=== PATIENT | female | born 1985 | race Caucasian/White ===

== ENCOUNTER → 2020-06-14 | Outpatient (CLI) | payer OTHER ==
--- NOTE | 2020-06-16 07:03 | PE ---
EXAMINATION TYPE: PET CT fusion skull to thigh DATE OF EXAM: 06/14/2020 COMPARISON: Outside CT June 04, 2020 HISTORY: Lung cancer initial staging study. Recent abnormal CT. TECHNIQUE: Following the intravenous administration of 11.07 mCi of F-18 FDG, whole body images are performed from the skull base to the midthigh. Images are reviewed on the computer in the coronal, a xial, and sagittal planes. Reconstructed rotating images are created on independent workstation and reviewed on the computer. A noncontrast CT is performed in conjunction with the PET scan. SCAN: Initial Scan FINDINGS: SKULL BASE AND NECK: Diffuse increased uptake symmetrically at level of tongue is present. There is a symmetric increased radiotracer uptake left mandibular level. CHEST, MEDIASTINUM, AND HILAR REGION: Increased uptake surrounding bilateral shoulder muscles left gr eater than right is present. Corresponding to recent outside CT there is persistent focal nodule or nodular consolidation measurin g 1.4 x 1.1 cm superior aspect right lower lobe axial image 87 with hypermetabolic uptake, max SUV is 3.78. There is new nodule or nodular consolidation superior to this axial image 80 measuring 1.4 x 1.1 cm t hat is ametabolic. There is hypermetabolic right 1.5 x 1.4 cm hilar lymph node axial image 88, max SUV is 4.69. No additional areas of abnormal hypermetabolic uptake. ABDOMEN AND PELVIS: Normal excretion from the kidneys and along bilateral ureters into the bladder. N onspecific bowel uptake at level of the cecum. Abnormal hypermetabolic uptake left thigh muscles late rally. No adrenal masses. No suspicious hypermetabolic metabolic uptake. OSSEOUS STRUCTURES: Some hypermetabolic uptake towards end of study mid to distal right femoral level near metallic leg surgical hardware. The visualized right lower extremity is abnormally enlarged monica milton the left leg. Hypermetabolic uptake extends laterally. Patient states history of recent traumatic fracture and surgery May 25. OTHER CT: Liver is enlarged and low density relative to spleen. Cholecystectomy clips are noted. Sple en is upper limits of normal in size. Anteverted uterus. Scattered pelvic phleboliths. IMPRESSION: 1. Multifocal areas of increased uptake diffusely in muscles could reflect multifocal inflammatory pr ocess. Posttraumatic changes and recent surgery accounting for uptake partially imaged in the mid to distal femur. 2. Nonspecific hypermetabolic uptake in the persistent nodule or nodular consolidation with hypermeta bolic slightly enlarged right hilar lymph node. I would still favor post infectious etiology over ralph plasm in patient of this age with new ametabolic nodule or nodular consolidation in the right lung no isabelle on this study versus recent CT. Correlate clinically. At minimum consider short-term follow-up an d sampling if nodule persists.
== END | disposition home or self-care (01) ==
LOC: RADPETMAIN 09:05
PROVIDERS: ATTEND Family Medicine
DX: R91.8 Other nonspecific abnormal finding of lung field (principal); R93.7 Abnormal findings on diagnostic imaging of other parts of musculoskeletal system; R59.0 Localized enlarged lymph nodes; S72.91XA Unspecified fracture of right femur, initial encounter for closed fracture; M89.8X9 Other specified disorders of bone, unspecified site; Z98.890 Other specified postprocedural states
CPT/HCPCS: 78815; A9552

== ENCOUNTER → 2020-06-24 | Outpatient (CLI) | payer OTHER ==
--- NOTE | 2020-06-24 12:47 | XR ---
EXAMINATION TYPE: XR femur RT DATE OF EXAM: 06/24/2020 COMPARISON: 06/14/2020 PET/CT is reviewed. HISTORY: Pain in right femur TECHNIQUE: 2 view right femur FINDINGS: There are prior medullary elder and fixation for a distal diaphyseal oblique fracture. Within the mid to distal diaphysis there is some elevation of the cortex. Some lucencies within the c ortex along the medial aspect of the distal third diaphyseal femur above the level of the fracture. U nderlying osteomyelitis is not excluded. Consider evaluation with three-phase bone scan. Femoral head articulates with the acetabulum. IMPRESSION: 1. 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 Clinical correlation jacqueline mmended. 2. There is some interval healing of a distal diaphyseal femoral fracture
== END | disposition home or self-care (01) ==
LOC: RADXRMAIN 12:03
PROVIDERS: ATTEND Orthopaedic Surgery
DX: S72.301A Unspecified fracture of shaft of right femur, initial encounter for closed fracture (principal)

== ENCOUNTER 2020-07-05 13:42 | Emergency (ER) | payer OTHER ==
[2020-07-05 13:59] VITALS: RESP 18
[2020-07-05] MEDS ORDERED: HYDROmorphone 0.5 MG/0.5 ML SYRINGE IVP STA ×2 (14:23→17:12)
--- NOTE | 2020-07-05 14:27 | ED ---
General Adult HPI - General Chief complaint: Extremity Injury, Lower Stated complaint: Right leg pain Time Seen by Provider: 07/05/20 14:12 Source: patient, EMS Mode of arrival: EMS Limitations: physical limitation - History of Present Illness Initial comments: Dictation was produced using [employer] dictation software. please excuse any grammatical, word or spelling errors. This patient was cared for during a federal and state declared state of em ergency secondary to Covid 19 Chief Complaint: 35-year-old female with past medical history of atraumatic femur fracture presents with severe right lower extremity pain History of Present Illness: 35-year-old female she suffered a atraumatic right femur fracture proximal one month ago. She had surgery at that time. She reports that she had a femur elder placed at [facility] by orthopedic surgery there. Patient states over the last couple days she's been having worsening pain over her tibial area. She states that she has severe pain from her foot all the way to her knee. Patient states she is unable to ambulate. She also complains of pain in her right hip. Patient reports that she was a medical history because she had an atraumatic femur fracture. They thought perhaps that the fracture was secondary to malignant bone disease. States that her pain got so severe that she called EMS for her to be brought to the emergency department. Patient denies any fever, chills or night sweats. She reports that her orthopedic surgeon is Dr. Almaraz at [facility]. She had an appointment 1 week ago were she had her knee immobilizer cleared. The ROS documented in this emergency department record has been reviewed and confirmed by me. Those systems with pertinent positive or negative responses have been documented in the HPI. All other systems are other negative and/or noncontributory. PHYSICAL EXAM: General Impression: Alert and oriented x3, not in acute distress HEENT: Normocephalic atraumatic, extra-ocular movements intact, pupils equal and reactive to light bilaterally, mucous membranes moist. Cardiovascular: Heart regular rate and rhythm Chest: Able to complete full sentences, no retractions, no tachypnea Abdomen: abdomen soft, non-tender, non-distended, no organomegaly Musculoskeletal: Pulses present and equal in all extremities, no peripheral latrell a Motor: no focal deficits noted Right lower extremity: Appears atraumatic, however whenever I manipulate the foot she screams in pain and points to her mid tibial area. She denies any tenderness to palpation above the right knee area Neurological: CN II-XII grossly intact, no focal motor or sensory deficits noted Skin: Intact with no visualized rashes Psych: Normal affect and mood ED course: 35-year-old female presents with severe pain to the right lower extremity. Vital signs upon arrival are within acceptable limits. Computed tomography scan of the right lower extremity shows no fixation placed with good position. There is mildly joint effusion with osteoporosis arthritis in the medial. There is osteolytic process involving the proximal femoral fragment medial and posterior cortex which could relate to underlying tumor or infection. Laboratory evaluation was obtained. CBC unremarkable. Metabolic panel is unremarkable. There is an elevated CRP 89.8.Case was discussed in det ail with patient's surgeon Dr. Almaraz who reports that patient's surgical issues are stable. He does report that patient is currently homeless and has poor social situation. Said patient has abrasions for all the outpatient follow-up. Results and discussion with orthopedic surgery was discussed with patient. She is agreeable for discharge. Patient given prescription for by mouth analgesics. She strongly urged to maintain her appointments outpatient. Patient is agreeable for discharge. - Related Data Previous Rx's Medication Instructions Recorded Ibuprofen [Motrin] 800 mg PO Q8HR PRN #30 tab 03/03/15 oxyCODONE HCL/ACETAMINOPHEN 1 tab PO Q6HR PRN 3 Days #12 tab 07/05/20 [Percocet 5-325 mg] Allergies Allergy/AdvReac Type Severity Reaction Status Date / Time No Known Allergies Allergy Verified 07/05/20 16:06 Review of Systems ROS Statement: Those systems with pertinent positive or pertinent negative responses have been documented in the HPI. ROS Other: All systems not noted in ROS Statement are negative. Past Medical History Additional Past Medical History / Comment(s): back pain, knee pain History of Any Multi-Drug Resistant Organisms: None Reported Past Surgical History: Cholecystectomy, Tonsillectomy, Tubal Ligation Past Psychological History: No Psychological Hx Reported Smoking Status: Current every day smoker Past Alcohol Use History: None Reported Past Drug Use History: None Reported General Exam Limitations: physical limitation Course Vital Signs 07/05/20 13:55 Temperature 98.7 F Pulse Rate 100 Respiratory 18 Rate Blood Pressure 113/80 O2 Sat by Pulse 100 Oximetry Medical Decision Making - Lab Data Result diagrams: 07/05/20 14:31 07/05/20 14:31 Lab Results 07/05/20 07/05/20 Range/Units 14:31 14:31 WBC 9.0 (3.8-10.6) k/uL RBC 4.29 (3.80-5.40) m/uL Hgb 10.6 L (11.4-16.0) gm/dL Hct 32.6 L (34.0-46.0) % MCV 76.1 L (80.0-100.0) fL MCH 24.7 L (25.0-35.0) pg MCHC 32.5 (31.0-37.0) g/dL RDW 15.0 (11.5-15.5) % Plt Count 517 H (150-450) k/uL MPV 6.8 Neutrophils % 67 % Lymphocytes % 24 % Monocytes % 5 % Eosinophils % 1 % Basophils % 1 % Neutrophils # 6.0 (1.3-7.7) k/uL Lymphocytes # 2.2 (1.0-4.8) k/uL Monocytes # 0.4 (0-1.0) k/uL Eosinophils # 0.1 (0-0.7) k/uL Basophils # 0.1 (0-0.2) k/uL Hypochromasia Slight Microcytosis Slight Sodium 138 (137-145) mmol/L Potassium 4.4 (3.5-5.1) mmol/L Chloride 102 (98-107) mmol/L Carbon Dioxide 30 (22-30) mmol/L Anion Gap 6 mmol/L BUN 12 (7-17) mg/dL Creatinine 0.50 L (0.52-1.04) mg/dL Est GFR (CKD-EPI)AfAm >90 (>60 ml/min/1.73 sqM) Est GFR (CKD-EPI)NonAf >90 (>60 ml/min/1.73 sqM) Glucose 103 H (74-99) mg/dL Calcium 10.0 (8.4-10.2) mg/dL C-Reactive Protein 89.8 H (<10.0) mg/L Disposition Clinical Impression: Leg pain Disposition: HOME SELF-CARE Condition: Good Instructions (If sedation given, give patient instructions): Pain Management (ED), Peripheral Neuropathy (ED) Prescriptions: oxyCODONE HCL/ACETAMINOPHEN [Percocet 5-325 mg] 1 tab PO Q6HR PRN 3 Days #12 tab PRN Reason: Pain Is patient prescribed a controlled substance at d/c from ED?: Yes If prescribed controlled substance>3 days was MAPS reviewed?: Prescribed <3 Days Referrals: Williams Sarmiento MD [Primary Care Provider] - 1-2 days Time of Disposition: 17:41
[2020-07-05 15:07] LABS: Basophils # (A) 0.1 k/uL (0-0.2); Basophils % (A) 1 %; Eosinophils # (A) 0.1 k/uL (0-0.7); Eosinophils % (A) 1 %; HCT 32.6 % (34.0-46.0); HGB 10.6 gm/dL (11.4-16.0); Hypochromasia Slight; Lymphocytes # (A) 2.2 k/uL (1.0-4.8); Lymphocytes % (A) 24 %; MCH 24.7 pg (25.0-35.0); MCHC 32.5 g/dL (31.0-37.0); MCV 76.1 fL (80.0-100.0); Mean Platelet Volume 6.8; Microcytosis Slight; Monocytes # (A) 0.4 k/uL (0-1.0); Monocytes % (A) 5 %; Neutrophils % (A) 67 %; Platelet Count 517 k/uL (150-450); RBC 4.29 m/uL (3.80-5.40)
[2020-07-05 15:32] LABS: African American GFR (CKD) >90 (>60 ml/min/1.73 sqM); Anion Gap 6 mmol/L; Blood Urea Nitrogen 12 mg/dL (7-17); C Reactive Protein 89.8 mg/L (<10.0); Carbon Dioxide 30 mmol/L (22-30); Chloride 102 mmol/L (98-107); Glucose 103 mg/dL (74-99); Non-African American GFR(CKD) >90 (>60 ml/min/1.73 sqM); Potassium 4.4 mmol/L (3.5-5.1); Sodium 138 mmol/L (137-145)
--- NOTE | 2020-07-05 16:28 | CT ---
EXAMINATION TYPE: CT lower extremity RT w con DATE OF EXAM: 07/05/2020 COMPARISON: HISTORY: Severe femoral and tibial pain after fx on 05/24/20. CT DLP: 1553.8 mGycm Automated exposure control for dose reduction was used. CONTRAST: Performed with IV Contrast, patient injected with 100ml mL of Isovue 300. Images were obtained from the mid ileum to the bottom of the foot with IV contrast. There is intramedullary elder in the femur fixing a spiral fracture of the midshaft. Fragments are in r easonable anatomic position. There is some bridging callus formation. There is some lucency of the co rtex of the mid shaft of the femur on the medial aspect consistent with a osteolytic process. The hip joint is intact. The knee joint appears intact. There is small knee joint effusion. There is narrowi ng of the medial joint space of the knee. The acetabulum is intact. The tibia and fibula appear intac t. Ankle mortise is anatomic. IMPRESSION: Internal fixation of the femur fracture in good position. Mild knee joint effusion with osteoarthriti s in the medial joint space. Osteolytic process involving the proximal femoral fragment medial and po sterior cortex could relate to underlying tumor or infection.. Comparison with preoperative images wo uld be helpful.
[2020-07-05 18:12] VITALS: BP 129/75; PULSE 98; TEMP 98
== END 2020-07-05 18:12 | disposition home or self-care (01) ==
LOC: EC 13:42
DX: M81.0 Age-related osteoporosis without current pathological fracture (principal); R79.82 Elevated C-reactive protein (CRP); M25.461 Effusion, right knee; Z59.0 Homelessness; M25.551 Pain in right hip; F17.200 Nicotine dependence, unspecified, uncomplicated
CPT/HCPCS: 36415; 80048; 85652; 85025; 86140; 84145; 73701; 99284; 96374; 96376; J1170; Q9967; 96375

== ENCOUNTER → 2020-08-19 | Outpatient (CLI) | payer OTHER ==
[2020-08-19 16:21] LABS: Anisocytosis Slight; Basophils # (A) 0.1 k/uL (0-0.2); Basophils % (A) 1 %; Eosinophils # (A) 0.2 k/uL (0-0.7); Eosinophils % (A) 3 %; HCT 34.3 % (34.0-46.0); HGB 11.2 gm/dL (11.4-16.0); Hypochromasia Moderate; Lymphocytes # (A) 2.2 k/uL (1.0-4.8); Lymphocytes % (A) 30 %; MCH 24.5 pg (25.0-35.0); MCHC 32.7 g/dL (31.0-37.0); MCV 75.1 fL (80.0-100.0); Microcytosis Slight; Monocytes # (A) 0.5 k/uL (0-1.0); Monocytes % (A) 7 %; Neutrophils # (A) 4.2 k/uL (1.3-7.7); Neutrophils % (A) 57 %; Platelet Count 365 k/uL (150-450); RBC 4.57 m/uL (3.80-5.40); RDW 16.5 % (11.5-15.5); WBC 7.4 k/uL (3.8-10.6)
--- NOTE | 2020-08-19 18:54 | XR ---
EXAMINATION TYPE: XR femur RT DATE OF EXAM: 08/19/2020 COMPARISON: NONE HISTORY: 35-year-old female right distal femoral shaft fracture, follow-up to surgery on 05/23/2020 TECHNIQUE: 2 views FINDINGS: Retrograde intramedullary nail with single proximal and 2 distal screw fixation. This traverses the o blique fracture of the distal femoral shaft. Similar mild lateral displacement. Progressive maturing periosteal and endosteal callus. Redemonstrated area of irregular lysis on the mid to distal third po steromedial cortex. IMPRESSION: 1. Retrograde intramedullary nailing across the oblique fracture of the distal femoral shaft. Progres sive endosteal and periosteal callus formation. 2. Redemonstrated lytic process along the posteromedial mid to distal third femoral shaft cortex. Cor relate to exclude underlying neoplasm.
[2020-08-19 20:43] LABS: Erythrocyte Sedimentation Rate 54 mm/hr (0-20)
== END | disposition home or self-care (01) ==
LOC: RADXRMAIN 15:33
PROVIDERS: ATTEND Orthopaedic Surgery
DX: S72.331A Displaced oblique fracture of shaft of right femur, initial encounter for closed fracture (principal); J31.0 Chronic rhinitis; R53.83 Other fatigue; R05 Cough; R06.02 Shortness of breath; Z98.890 Other specified postprocedural states
CPT/HCPCS: 36415; 82103; 82104; 82785; 85025; 85652; 86001; 86003; 86038; 86039; 86431; 86606; 86609

== ENCOUNTER → 2020-08-19 | Outpatient (CLI) | payer OTHER ==
--- NOTE | 2020-08-19 15:52 | CT ---
EXAMINATION TYPE: CT chest wo con DATE OF EXAM: 08/19/2020 COMPARISON: 06/04/2020 HISTORY: SOB CT DLP: 255.4 mGycm. Automated Exposure Control for Dose Reduction was Utilized. TECHNIQUE: CT scan of the thorax is performed without IV contrast. FINDINGS: LUNGS: No pleural effusion or pneumothorax. There is a rounded masslike 1.4 cm area of consolidation in the superior segment right lower lobe. Additional tiny peripheral 1 to 2 mm pulmonary nodule seen. MEDIASTINUM: Lack of IV contrast is noted to limit evaluation for mediastinal and especially hilar ad enopathy. There are no definitive greater than 1 cm hilar or mediastinal lymph nodes. Heart mildly en larged. OTHER: Hypertrophic and degenerative change of the vertebral column. Postcholecystectomy changes note d.. IMPRESSION: 1. Within the superior segment of the right upper lobe there is a 1.4 cm area of persistent pulmonary nodule or nodular consolidation. Adjacent tiny 1 to 2 mm satellite nodule seen. Findings are stable from prior exam. 2. Cardiomegaly.
== END | disposition home or self-care (01) ==
LOC: RADCTMAIN 15:03
PROVIDERS: ATTEND Internal Medicine Pulmonary Disease
DX: R91.8 Other nonspecific abnormal finding of lung field (principal); I51.7 Cardiomegaly
CPT/HCPCS: 71250

== ENCOUNTER → 2020-08-19 | Outpatient (CLI) | payer OTHER ==
--- NOTE | 2020-08-19 19:23 | BD ---
EXAMINATION TYPE: Axial Bone Density DATE OF EXAM: 08/19/2020 COMPARISON: NONE CLINICAL HISTORY: 35-year-old female M89.9, disorder of bone Height: 5 FT 6 1/2 IN Weight: 198 FRAX RISK QUESTIONS: Alcohol (3 or more units per day): NO Family History (Parent hip fracture): NO Glucocorticoids (More than 3mos): NO (Ex: prednisone, prednisolone, methylprednisolone, dexamethasone, and hydrocortisone). History of Fracture in Adulthood: YES Secondary Osteoporosis: 1. Type 1 Diabetes: NO 2. Hyperthyroidism: NO 3. Menopause before 45: NA 4. Malnutrition: NO 5. Chronic liver disease: NO Rheumatoid Arthritis: YES Current Tobacco Use: YES RISK FACTORS HISTORY OF: Family History of Osteoporosis: UNSURE Active: NO Diet low in dairy products/other sources of calcium: Postmenopausal woman: TUBAL 2008 If Premenopausal, do you have irregular periods: NOT HAD A CYCLE SINCE SHE BROKE HER FEMUR Take estrogen and/or progesterone medications: TOOK CONTROL LESS THAN ONE YEAR Lost more than 2 inches in height since high school: NO MEDICATIONS: Additional Medications: GABAPENTIN, MOTRIN, OXYCODONE, CYMBALTA, Additional History: RT FEMUR FX MAY 2020 EXAM MEASUREMENTS: Bone mineral densitometry was performed using the [employer] System. Bone mineral density as measured about the Lumbar spine is: ----- L1-L4(G/cm2): 1.342 T Score Values are as follows: ----- L2: 1.8 ----- L3: 1.2 ----- L4: 0.7 ----- L1-L4: 1.4 BASELINE Bone mineral density about the L hip (g/cm2): 1.012 T Score values are as follows: -----L Neck: -0.2 -----L Total: 0.3 BASELINE IMPRESSION: Given patient's age, Z score values are utilized rather than T scores. All values are greater than -2.0. Normal bone mineral density.
== END | disposition home or self-care (01) ==
LOC: RADBDWWP 16:25
PROVIDERS: ATTEND Family Medicine
DX: M89.9 Disorder of bone, unspecified (principal)
CPT/HCPCS: 77080

== ENCOUNTER 2020-09-02 09:30 | Day surgery (SDC) | payer OTHER | END 2020-09-02 10:05 | disposition home or self-care (01) | LOC: RADPROMAIN 09:30 | PROVIDERS: ATTEND Internal Medicine Pulmonary Disease | DX: R91.8 Other nonspecific abnormal finding of lung field (principal); Z53.8 Procedure and treatment not carried out for other reasons ==

== ENCOUNTER 2021-01-26 15:32 | Inpatient (IN) | payer OTHER ==
[2021-01-26] MEDS ORDERED: CEFEPIME 2 GM in SODIUM CHLORIDE 0.9% 100 ML IVPB STA (16:27)
[2021-01-26] MEDS ORDERED: VANCOMYCIN IV PER PHARMACY 1 EACH MISC MISCELLANE PRN (16:27)
[2021-01-26] MEDS ORDERED: VANCOMYCIN 1,750 MG in SODIUM CHLORIDE 0.9% 500 ML 500 ML IVPB STA (16:30)
--- NOTE | 2021-01-26 16:51 | ED ---
General Adult HPI - General Chief complaint: Skin/Abscess/Foreign Body Stated complaint: weakness Time Seen by Provider: 01/26/21 16:04 Source: patient, EMS Mode of arrival: EMS Limitations: no limitations - History of Present Illness Initial comments: Kimberly is a 36-year-old female who presents to the emergency department today via ambulance for evaluation of neck pain, inability to ambulate, numbness and weakness of the left arm, abscess on the arm, swelling in her neck. Patient states that last fall she had a fracture to her right femur, she was evaluated for possible pathologic fracture and may have developed osteomyelitis. She has had subsequent admissions for further workup. She states that after that procedure she has had a relapse and using methamphetamines. She does admit she has been skin popping. Patient states that she has developed some progressively worsening neck pain and last week was seen in an outside hospital where she was admitted. She did not have her MRI completed and felt that nothing was being done so she left AMA. Patient states throughout the week this week her symptoms have worsened. She's had progressively worsening neck pain, she's developed weakness of her lower extremities and inability to ambulate, she's also developed progressive weakness in her left arm. She states that today she also knows that there is an abscess in her left arm from skin popping methamphetamines. A shunt states that due to her declining and focality she's not been able to ambulate or shower. Due to her declining condition today she decided to call 911 and be transported back to the hospital. Patient states that she was somewhat hesitating coming back to 2 being treated like a drug addict and because she does know that her relapse is likely worsened her condition. Tearful and apologetic on arrival. - Related Data Previous Rx's Medication Instructions Recorded Ibuprofen [Motrin] 800 mg PO Q8HR PRN #30 tab 03/03/15 Allergies Allergy/AdvReac Type Severity Reaction Status Date / Time No Known Allergies Allergy Verified 01/26/21 23:01 Review of Systems ROS Statement: Those systems with pertinent positive or pertinent negative responses have been documented in the HPI. ROS Other: All systems not noted in ROS Statement are negative. Past Medical History Additional Past Medical History / Comment(s): back pain, knee pain, broken femur on right---surgery May 2020 Dr Almaraz, " patient was told she had scarring in lungs" History of Any Multi-Drug Resistant Organisms: None Reported Past Surgical History: Cholecystectomy, Tonsillectomy, Tubal Ligation Additional Past Surgical History / Comment(s): right femur fracture with surgery May 2020 Past Anesthesia/Blood Transfusion Reactions: No Reported Reaction Past Psychological History: No Psychological Hx Reported Smoking Status: Current every day smoker Past Alcohol Use History: Occasional Past Drug Use History: Heroin, Methamphetamine - Past Family History Mother Additional Family Medical History / Comment(s): cirrhosis of the liver General Exam - General Exam Comments Initial Comments: Physical Exam GENERAL: ill-appearing, appears older than stated age Skin is sweaty and warm HENT: Normocephalic, Atraumatic. EYES: PERRL, EOMI PULMONARY: Unlabored respirations CARDIOVASCULAR: RRR ABDOMEN: Soft and nontender with normal bowel sounds. SKIN: Large draining abscess in the left forearm, Scars in bilateral antecubital fossa consistent with history of IV drug abuse : Deferred NEUROLOGIC: Patient is alert and oriented x3. Weakness in abduction and flexion of the left arm, weak bottling line attendant strength, decreased sensation patient reports paresthesias numbness and tingling in the left arm, when attempting to move the arm to midline she uses her right arm to reach over and move the left arm Did not attempt to stand or ambulate the patient however she had decreased range of motion of the right hip and knee secondary to previous surgery Patient reported decreased sensation in bilateral lower extremities, had minimal reaction to central line placement, had some spastic movements which patient reported were out of her control MUSCULOSKELETAL: Palpable step-off in cervical spine PSYCHIATRIC: Tearful, apologetic, appropriate situational anxiety not suicidal or homicidal Limitations: no limitations Course Vital Signs 01/26/21 01/26/21 01/26/21 15:40 19:52 22:00 Temperature 97.5 F L Pulse Rate 67 69 77 Respiratory 16 18 18 Rate Blood Pressure 112/66 106/65 116/72 O2 Sat by Pulse 99 95 95 Oximetry 01/26/21 23:08 Temperature Pulse Rate 86 Respiratory 18 Rate Blood Pressure 115/83 O2 Sat by Pulse Oximetry Procedures - Central Line Placement Left Femoral Consent Obtained: verbal consent Prep: mask, gown, gloves Central Line Prep: Chlorhexidine scrub Local Anesthesia Used: Lidocaine 1% Ultrasound Used for Placement: Yes Central Line Lumen Inserted: triple Bloods Obtained for Lab: Yes Central Line Position: good blood return, all ports aspirated, flushed, capped, sutured in place with 3-0 nylon Dressing Applied: Tegaderm Patient Tolerated Procedure: well Complications: none Medical Decision Making - Medical Decision Making The patient was seen and evaluated, history is obtained from EMS and the patient Patient with previous hospitalizations for possible osteomyelitis of the thigh presenting now with neck pain and neurologic symptoms Patient does have a history of IV drug use I do have concern that she may have a spinal epidural abscess I do feel she rolled require admission, antibiotics and imaging Staff was unable to obtain peripheral IV access considering that I suspect the patient will require significant care I did consent her for a central line and placed a right femoral central line patient had minimal reaction to the placement stating that she could tell he was doing a procedure but had no sharp pain she did have some spastic movements of the leg during the exam Orthopedic spine surgery Dr. Barnes and was consulted, cold his mid-level provider did come to the ER and evaluate the patient he agrees the patient does have some weaknesses and decreased sensation as well as palpable abnormality in the cervical spine he consulted with Dr. Barnes and who recommended MRI with contrast of the entire spine after a computed tomography scan of the head to rule out any acute intracranial infections or abnormalities CT of the brain was negative patient was able to go to MRI of the spine I was contacted by Dr. Alvarez with critical findings on the MRI, patient does have discitis with osteomyelitis, pathological fracture with retropulsion of the C5 in the spinal canal causing spinal compression These results were discussed immediately with Dr. Rogers who was able to review the images, patient has had no change in her condition while in the emergency department, he recommends high-dose steroids, continued antibiotics, soft collar for cervical spine precautions admission with the plan for early mor albertina surgery Patient would prefer not to have her primary care Dr. Sarmiento on the case, Dr. Rogers requests [facility] physician group be placed on the case, patient care was discussed Dr. more is willing to be a medical legal investigator Patient care was discussed with weathercaster Dr. Guadalupe who accepts the patient to the ICU Patient is admitted to spinal surgeon with medicine, ICU and i nfectious disease on consult - Lab Data Result diagrams: 01/26/21 16:50 01/26/21 16:50 Lab Results 06/01/26/21 01/26/21 Range/Units 16:50 16:50 16:50 WBC 8.4 (3.8-10.6) k/uL RBC 4.42 (3.80-5.40) m/uL Hgb 11.2 L (11.4-16.0) gm/dL Hct 33.8 L (34.0-46.0) % MCV 76.5 L (80.0-100.0) fL MCH 25.5 (25.0-35.0) pg MCHC 33.3 (31.0-37.0) g/dL RDW 17.3 H (11.5-15.5) % Plt Count 279 (150-450) k/uL MPV 7.9 Neutrophils % 68 % Lymphocytes % 23 % Monocytes % 5 % Eosinophils % 2 % Basophils % 0 % Neutrophils # 5.7 (1.3-7.7) k/uL Lymphocytes # 2.0 (1.0-4.8) k/uL Monocytes # 0.4 (0-1.0) k/uL Eosinophils # 0.2 (0-0.7) k/uL Basophils # 0.0 (0-0.2) k/uL Anisocytosis Slight Microcytosis Slight ESR Cancelled PT 10.1 (9.0-12.0) sec INR 0.9 (<1.2) APTT 19.3 L (22.0-30.0) sec Sodium 138 (137-145) mmol/L Potassium 4.3 (3.5-5.1) mmol/L Chloride 106 (98-107) mmol/L Carbon Dioxide 25 (22-30) mmol/L Anion Gap 7 mmol/L BUN 14 (7-17) mg/dL Creatinine 0.35 L (0.52-1.04) mg/dL Est GFR (CKD-EPI)AfAm >90 (>60 ml/min/1.73 sqM) Est GFR (CKD-EPI)NonAf >90 (>60 ml/min/1.73 sqM) Glucose 82 (74-99) mg/dL Plasma Lactic Acid Willie (0.7-2.0) mmol/L Calcium 9.5 (8.4-10.2) mg/dL Total Bilirubin 1.1 (0.2-1.3) mg/dL AST 34 (14-36) U/L ALT 19 (4-34) U/L Alkaline Phosphatase 112 (38-126) U/L C-Reactive Protein 4.4 H (<1.0) mg/dL Total Protein 8.1 (6.3-8.2) g/dL Albumin 4.0 (3.5-5.0) g/dL 01/26/21 Range/Units 16:50 WBC (3.8-10.6) k/uL RBC (3.80-5.40) m/uL Hgb (11.4-16.0) gm/dL Hct (34.0-46.0) % MCV (80.0-100.0) fL MCH (25.0-35.0) pg MCHC (31.0-37.0) g/dL RDW (11.5-15.5) % Plt Count (150-450) k/uL MPV Neutrophils % % Lymphocytes % % Monocytes % % Eosinophils % % Basophils % % Neutrophils # (1.3-7.7) k/uL Lymphocytes # (1.0-4.8) k/uL Monocytes # (0-1.0) k/uL Eosinophils # (0-0.7) k/uL Basophils # (0-0.2) k/uL Anisocytosis Microcytosis ESR PT (9.0-12.0) sec INR (<1.2) APTT (22.0-30.0) sec Sodium (137-145) mmol/L Potassium (3.5-5.1) mmol/L Chloride (98-107) mmol/L Carbon Dioxide (22-30) mmol/L Anion Gap mmol/L BUN (7-17) mg/dL Creatinine (0.52-1.04) mg/dL Est GFR (CKD-EPI)AfAm (>60 ml/min/1.73 sqM) Est GFR (CKD-EPI)NonAf (>60 ml/min/1.73 sqM) Glucose (74-99) mg/dL Plasma Lactic Acid Willie 1.1 (0.7-2.0) mmol/L Calcium (8.4-10.2) mg/dL Total Bilirubin (0.2-1.3) mg/dL AST (14-36) U/L ALT (4-34) U/L Alkaline Phosphatase (38-126) U/L C-Reactive Protein (<1.0) mg/dL Total Protein (6.3-8.2) g/dL Albumin (3.5-5.0) g/dL Critical Care Time Critical Care Time: Yes Total Critical Care Time: 90 Critical Care Time: Critical Care Time Critical care time was exclusive of separately billable procedures and treating other patients and teaching time. Critical care was necessary to treat or prevent imminent or life-threatening deterioration. Given the critical condition in which the patient arrived, the patient was immediately assessed by myself and the nurse, and cardiac monitoring initiated due to the potential for rapid decompensation of the patient's clinical condition. During the course of the patients stay, I spent a considerable amount of time at the bedside performing serial re-evaluations of the patient's hemodynamic and clinical status because of the recognized potential threat to life or limb in this condition. I then had a chance to review not only all of the available current laboratory and radiographic studies obtained today, but I also reviewed old records available to me at the time. Additionally, any ancillary information available including renal dialysis rn records were reviewed. Se quential vital signs were obtained. Disposition Clinical Impression: Discitis of cervical region, Osteomyelitis of cervical spine, Pathological fracture of cervical vertebra, Spinal cord compression Disposition: ADMITTED IP TO THIS [facility] Condition: Critical
[2021-01-26 17:11] LABS: Anisocytosis Slight; Basophils % (A) 0 %; Eosinophils # (A) 0.2 k/uL (0-0.7); Eosinophils % (A) 2 %; HCT 33.8 % (34.0-46.0); HGB 11.2 gm/dL (11.4-16.0); Lymphocytes % (A) 23 %; MCH 25.5 pg (25.0-35.0); MCHC 33.3 g/dL (31.0-37.0); MCV 76.5 fL (80.0-100.0); Mean Platelet Volume 7.9; Microcytosis Slight; Monocytes # (A) 0.4 k/uL (0-1.0); Monocytes % (A) 5 %; Neutrophils # (A) 5.7 k/uL (1.3-7.7); Neutrophils % (A) 68 %; Platelet Count 279 k/uL (150-450); RBC 4.42 m/uL (3.80-5.40); RDW 17.3 % (11.5-15.5); WBC 8.4 k/uL (3.8-10.6)
[2021-01-26 17:21] LABS: ALT 19 U/L (4-34); AST 34 U/L (14-36); African American GFR (CKD) >90 (>60 ml/min/1.73 sqM); Alkaline Phosphatase 112 U/L (38-126); Anion Gap 7 mmol/L; Blood Urea Nitrogen 14 mg/dL (7-17); C Reactive Protein 4.4 mg/dL (<1.0); Calcium 9.5 mg/dL (8.4-10.2); Carbon Dioxide 25 mmol/L (22-30); Chloride 106 mmol/L (98-107); Glucose 82 mg/dL (74-99); Non-African American GFR(CKD) >90 (>60 ml/min/1.73 sqM); Potassium 4.3 mmol/L (3.5-5.1); Sodium 138 mmol/L (137-145); Total Bilirubin 1.1 mg/dL (0.2-1.3); Total Protein 8.1 g/dL (6.3-8.2)
[2021-01-26 17:49] LABS: INR 0.9 (<1.2); Prothrombin Time 10.1 sec (9.0-12.0)
[2021-01-26 17:52] LABS: Partial Thromboplastin Time 19.3 sec (22.0-30.0)
[2021-01-26] MEDS: SODIUM CHLORIDE 0.9% 500 ML 500 ML IV SCH ×2 (19:39→19:40)
[2021-01-26] MEDS ORDERED: HYDROmorphone 1 MG/ML 1 ML SYRINGE IVP STA ×2 (19:46→21:50)
--- NOTE | 2021-01-26 19:52 | CT ---
EXAMINATION TYPE: CT brain wo con DATE OF EXAM: 01/26/2021 COMPARISON: None HISTORY: Left arm weakness. CT DLP: 1090.4 mGycm Automated exposure control for dose reduction was used. Ventricles have normal size. There is no mass effect nor midline shift. There is no sign of intracran ial hemorrhage. The calvarium is intact. There is limited pneumatization of the mastoid sinuses. IMPRESSION: No acute intracranial abnormality. There is probably some mastoiditis.
--- NOTE | 2021-01-26 21:57 | MR ---
EXAMINATION TYPE: MR cspine/tspine/lspine wo/w DATE OF EXAM: 01/26/2021 COMPARISON: HISTORY: Left arm paralysis, weakness, IV drug use. CONTRAST: Standard multiplanar, multisequence MRI departmental protocol utilizing 9 mL intravenous Gadavist vitor olinium contrast. CT scan 06/04/2020 There is C5 and C6 anterior compression fractures with kyphotic deformity. There is posterior displac ement of C5 in relation to C6. There is resultant severe spinal stenosis. There is flattening of the cervical spinal cord with increased signal in the cord. Canal is narrowed to 3.5 mm. The posterior di splacement of C5 vertebral body is approximately 7 mm in relation to C6. There is acute cervical kyph otic deformity. There is widening of the interspinous space at the C5-6 level. I do not see a posteri or fracture line. The skull base is intact. The brainstem is intact. Cerebellum appears normal. Contrast images show en hancement of the disc spaces at C5-6 as well as some mild enhancement in the C5 vertebral body. There is prevertebral increased soft tissue density at the C3 C4 C5 level. This area also enhances. There is strangulation 1.5 cm area of enhancement at the anterior aspect of the C5 vertebral body that coul d be a phlegmon. There is no cervical paraspinal mass. The thoracic vertebra have fairly normal alignment. Thoracic spinal cord appears normal. Thoracic dis c spaces are normal. There is no paraspinal mass. I see no thoracic compression fracture. There is no pathologic enhancement in the thoracic spine. The lumbar vertebra have normal alignment. There is a moderate posterior disc herniation at L3-4 with elevation of the posterior longitudinal ligament. There is developmentally adequate spinal canal and no significant spinal stenosis. The visualized sacroiliac joints are intact. There is no lumbar para spinal mass. IMPRESSION: There is fracture of C5 and C6 vertebral bodies with retrolisthesis and kyphotic deformity and severe cervical spinal stenosis. There is enhancing material at the anterior disc space of C5-6 that could be a phlegmon. There is slight increased signal in the disc and chronic discitis and osteomyelitis is possible. There is prevertebral thickening and enhancement from C2 to C6 which could be a retrophary ngeal abscess. This fluid measures up to 5 mm in thickness at the C3 and C4 level. Old cervical spine traumatic compression fracture with flexion deformity should also be considered. No significant abnormality of the thoracic spine. There is mild posterior central L3-4 disc herniation in the spinal canal but no significant spinal st enosis. No lumbar or thoracic compression fracture. There is cervical spinal cord edema. This exam was discussed with ER physician at 9:50 PM.
[2021-01-26] MEDS ORDERED: NALOXONE 0.4 MG/ML 1 ML VIAL IV PRN (22:09)
[2021-01-26] MEDS ORDERED: methylPREDNISolone SOD SUCCI 125 MG/2 ML VIAL IV SCH (22:15)
[2021-01-26] MEDS ORDERED: SODIUM CHLORIDE 0.9% IVPB ONE (22:30)
[2021-01-26] MEDS ORDERED: METHYLPREDNISOLONE SOD SUCC IVPB ONE (22:30)
--- NOTE | 2021-01-26 22:40 | P.PN ---
Progress Note - Text Progress Note Date: 01/26/21 Reviewed MRI and spoke with ED physician. Per Report, Pt is 36 yo female who presented for Neck pain, inability to ambulate and weak UE. She was in [facility] 1 week ago for similar symptoms and left AMA as she was not getting the treatment she wanted. She called EMS today to come to ED due to difficulty with ambulation and more neck pain and arm weakness. ED concerned for Epidural abscess due to symptoms and hx of IVDA. Pt found to have profound C5-6 osteodiscitis with erosion, kyphosis and stenosis with C5 and C6 near complete erosion. There is no epidural abscess noted. There is widening of the IP distance due to deformity and collapse. There is retropharyngeal fluid which is likely due to the osteo and abscess that has formed that is present tracking superiorly along the anterior spine to about C2-3 interspace. We will admit the pt, start her on NASCIS III steroid protocol. We will have medicine see and clear patient for Urgent case. ED started abx. ID will be consulted. She will be placed in a soft collar for protection and as not to distract the segments inordinantly. She will get stat CT of C spine for surgical planning. She will be admitted to ICU as well. We will perform a C5-6 corpectomy with C4-7 Fusion in stage 1 tomorrow 599.
--- NOTE | 2021-01-27 00:07 | CT ---
EXAMINATION TYPE: CT cervical spine wo con DATE OF EXAM: 01/26/2021 COMPARISON: MR scan today HISTORY: fracture CT DLP: 546.1 mGycm Automated exposure control for dose reduction was used. Images obtained from the skull base to T1 vertebra without contrast. There is compression deformity of the superior 50% of the C6 vertebral body. There is also some defor mity at the base of the C5 vertebral body. These are destructive changes and could relate to osteomye litis. There is a retrolisthesis of C5 in relation to C6 of 7 mm. There is narrowing of the spinal ca nal at C5-6. There is widening of the facet joint spaces at C5-6. There is flexion deformity of the s pine at C5-6. The other disc spaces appear normal. There is thickening of the prevertebral soft tissu es in the upper cervical spine with low attenuation. IMPRESSION: Compression fracture of C5 and C6 vertebra with probably some destructive changes. This is not an acu te fracture. This could be pathologic fracture related to osteomyelitis. There is widening of the fac et joint spaces at C5-6 consistent with ligamentous instability. There is moderately severe spinal st enosis at C5-6. There is some thickening of the prevertebral soft tissues at C2 and C3 and C4 level w ith low attenuation that could be retropharyngeal abscess.
[2021-01-27] MEDS ORDERED: HYDROmorphone 1 MG/ML 1 ML SYRINGE IVP STA (00:29)
--- NOTE | 2021-01-27 00:33 | CT ---
EXAMINATION TYPE: CT thoracic spine wo con DATE OF EXAM: 01/26/2021 COMPARISON: None HISTORY: fracture CT DLP: 546.1 mGycm Automated exposure control for dose reduction was used. Images obtained from the level of T1-T12 without contrast. Thoracic vertebra have normal alignment. Disc spaces are fairly normal. There is no compression fract ure. There is no thoracic paraspinal mass. The posterior elements are intact. There is some subsegmen roger atelectasis in the posterior lung arellano. I see no bony destructive process. There is 2 cm somewh at nodular infiltrate in the subpleural right lower lobe in the superior segment. IMPRESSION: No significant abnormality of the thoracic spine. No fracture. There is some infiltrate and atelectasis in the posterior lung arellano with nodular subpleural infiltr ate in the right lower lobe superior segment.
[2021-01-27 00:55] LABS: Glucose,Whole Blood 88 mg/dL (75-99)
--- NOTE | 2021-01-27 02:42 | P.CONS ---
History of Present Illness - Reason for Consult Consult date: 01/27/21 - History of Present Illness The patient is a 36-year-old female with a PMH of polysubstance abuse who was brought into the emergency room via EMS due to complaints of neck pain, neck swelling, and bilateral arm weakness. The patient reports that she initially had a fall and subsequent fracture of her right femur back in May of last year. The fracture was later deemed to be pathological due to possible osteomyelitis with the patient reports that she was not started on IV antibiotics for an unclear reason. She has subsequently been seen multiple times at multiple facilities and reports that she she had been trying to undergo an outpatient MRI due to gradually worsening neck pain and arm weakness for the past several weeks. She reports being seen at another hospital 1-2 weeks ago where she was scheduled to be admitted and undergo an MRI but she decided to leave AMA. During this time, she reports having struggled with IV substance abuse with methamphetamines. She reports that about the last week however, she noticed that gradually worsening neck pain along with weakness of her bilateral arms and legs. Patient reports that her weakness acutely worsened over the weekend at which point she became concerned and called 911 and was brought into the emergency room. Patient reports that she did hesitate in seeking medical attention due to her history of substance abuse. The patient underwent an ext ensive evaluation in the emergency room with a cervical/thoracic/lumbar spine MRI with and without contrast showing multiple fractures of the cervical spine including C5 and C6, discitis and paravertebral abscess at the cervical spine level, severe spinal stenosis, and cervical spinal cord edema. Brain CT revealed possible mastoiditis. The emergency room physician discussed the case with spinal surgeon personnel research scientist who admitted the patient with medicine and infectious disease on consult. At time of interview, the patient reported that she has 3 out of 10 diffuse neck pain and continues to have the arm and leg weakness. She denied urinary or bowel incontinence. Reports inability to fully open her hands bilaterally along with numbness of her bilateral arms diffusely. She denied chest pain, fever, chills, nausea, vomiting, abdominal pain. Denied visual disturbances. Review of systems: Pertinent positives and negatives as discussed in HPI, a complete review of systems was performed and all other systems are negative. Physical examination: General: non toxic, no distress, appears older than stated age, overweight, in cervical collar Derm: Draining abscess in the left forearm, no unusual ecchymoses, warm, dry Head: atraumatic, normocephalic, symmetric Eyes: EOMI, no lid lag, anicteric sclera, pupils equal round reactive to light ENT: Nose and ears atraumatic, no thrush, no pharyngeal erythema Mouth: no lip lesion, mucus membranes moist Cardiovascular: S1S2 reg, no murmur, positive posterior tibial pulse bilateral, no edema, capillary refill less than 2 seconds Lungs: CTA bilateral, no rhonchi, no rales , no accessory muscle use Abdominal: soft, nontender to palpation, no guarding, no appreciable organomegaly, normal bowel sounds Ext: no gross muscle atrophy, muscle strength 3+ out of 5 in bilateral upper and lower extremities with both proximal and distal muscle groups, no contractures, paresthesias and decreased sensation reported for bilateral upper extremities Neuro: CN II-XI grossly intact, finger to nose within normal limits, Psych: Alert, oriented, appropriate affect Assessment/plan Cervical spine discitis, paravertebral abscess, and neurological deficits -Continue with IV antibiotics (Vancomycin and Cefepime) and IV Solumedrol -Will defer management to Spine-Surgery service -ID consulted -Continue with spine precautions -Neurochecks -Continue with pain control Microcytic anemia -Check anemia panel, likely iron deficiency History of polysubstance abuse including IV methamphetamine -Advised on the importance of cessation Past Medical History Additional Past Medical History / Comment(s): back pain, knee pain, broken femur on right---surgery May 2020 Dr Almaraz, " patient was told she had scarring in lungs" History of Any Multi-Drug Resistant Organisms: None Reported Past Surgical History: Cholecystectomy, Tonsillectomy, Tubal Ligation Additional Past Surgical History / Comment(s): right femur fracture with surgery May 2020 Past Anesthesia/Blood Transfusion Reactions: No Reported Reaction Past Psychological History: No Psychological Hx Reported Smoking Status: Current every day smoker Past Alcohol Use History: Occasional Past Drug Use History: Heroin, Methamphetamine - Past Family History Mother Additional Family Medical History / Comment(s): cirrhosis of the liver Medications and Allergies Home Medications Medication Instructions Recorded Confirmed Type Ibuprofen [Motrin] 800 mg PO Q8HR PRN #30 tab 03/03/15 01/26/21 Rx Allergies Allergy/AdvReac Type Severity Reaction Status Date / Time No Known Allergies Allergy Verified 01/26/21 23:01 Physical Exam Vitals: Vital Signs Temp Pulse Resp BP Pulse Ox 01/27/21 00:56 85 16 124/74 98 01/26/21 23:30 82 18 116/73 98 01/26/21 23:08 86 18 115/83 01/26/21 22:00 77 18 116/72 95 01/26/21 19:52 69 18 106/65 95 01/26/21 15:40 97.5 F L 67 16 112/66 99 Intake and Output 01/26/21 01/26/21 01/27/21 14:59 22:59 06:59 Other: Weight 90.718 kg 90.718 kg Results CBC & Chem 7: 01/26/21 16:50 01/26/21 16:50 Labs: Abnormal Lab Results - Last 24 Hours (Table) 01/26/21 01/26/21 01/26/21 Range/Units 16:50 16:50 16:50 Hgb 11.2 L (11.4-16.0) gm/dL Hct 33.8 L (34.0-46.0) % MCV 76.5 L (80.0-100.0) fL RDW 17.3 H (11.5-15.5) % APTT 19.3 L (22.0-30.0) sec Creatinine 0.35 L (0.52-1.04) mg/dL C-Reactive Protein 4.4 H (<1.0) mg/dL
[2021-01-27] MEDS: VANCOMYCIN 1,500 MG in SODIUM CHLORIDE 0.9% 250 ML IVPB SCH ×3 (04:44→23:51)
[2021-01-27] MEDS: CEFEPIME 2 GM in SODIUM CHLORIDE 0.9% 100 ML IVPB SCH ×3 (04:45→23:50)
[2021-01-27 05:29] LABS: African American GFR (CKD) >90 (>60 ml/min/1.73 sqM); Non-African American GFR(CKD) >90 (>60 ml/min/1.73 sqM)
--- NOTE | 2021-01-27 05:58 | P.HPOR ---
History of Present Illness H&P Date: 01/26/21 Chief Complaint: Neck pain 36 yo female presented to ED via EMS with complaints of neck pain, increasing weakness in her UE b/l as well as weakness in her legs. she was recently admitted to [facility] with the same complaints and left AMA secondary to feeling like she was not being treated. She continues to complain of neck pain and deformity and inability to raise her head pain in her arms and shoulders as well as weakness in her arms bilaterally and legs. She states that the weakness has been going on for now about 2 weeks. She has noticed neck pain for greater than 2 weeks she states no bowel or bladder issues. She states no perineal numbness or tingling at this time. Review of Systems 14 points review of systems completed and as stated in HPI, all other systems reviewed are negative. Past Medical History Additional Past Medical History / Comment(s): back pain, knee pain, broken femur on right---surgery May 2020 Dr Almaraz, " patient was told she had scarring in lungs" History of Any Multi-Drug Resistant Organisms: None Reported Past Surgical History: Cholecystectomy, Tonsillectomy, Tubal Ligation Additional Past Surgical History / Comment(s): right femur fracture with surgery May 2020 Past Anesthesia/Blood Transfusion Reactions: No Reported Reaction Past Psychological History: No Psychological Hx Reported Smoking Status: Current every day smoker Past Alcohol Use History: Occasional Past Drug Use History: Heroin, Methamphetamine - Past Family History Mother Additional Family Medical History / Comment(s): cirrhosis of the liver Medications and Allergies Home Medications Medication Instructions Recorded Confirmed Type Ibuprofen [Motrin] 800 mg PO Q8HR PRN #30 tab 03/03/15 01/26/21 Rx Allergies Allergy/AdvReac Type Severity Reaction Status Date / Time No Known Allergies Allergy Verified 01/26/21 23:01 Physical Examination Osteopathic Statement: *. No significant issues noted on an osteopathic structural exam other than those noted in the History and Physical/Consult. PHYSICAL EXAMINATION: Vitals: Stable General: Awake, alert, appropriate for age, in no acute distress. HEENT: No unusual neck masses around region of lateral neck triangle, thyroid, supraclavicular groove. [Heart: Regular rate and rhythm, normal S1, S2 and no murmur/gallop.] [Lungs: Clear to auscultation bilaterally with no use of accessory muscles.] Extremities: Skin warm and dry without no acute lesions, coloration, temperature, skin intact, no tenderness or erythema. Integument: Hairy patches: Absent Dorsal skin dimples: Absent Cafe au lait spots: Absent Surgical incisions: none Palpation: Please see Pain drawing on Intake sheet for further detail. (Tenderness = T, Nontender = NT, Swelling = S, Ecchymosis = E) Findings on Midline and paraspinal palpation and percussion: Cervical: tennis palpation posteriorly with deformity home noted Thoracic: NT Lumbar: NT Sacral: NT Special findings: [] POSTURAL and MUSCULO-SKELETAL EVALUATION: Coronal Balance: Neutral Recumbent testing: Patient can lay flat on back Sagittal Balance: positive Shoulder Profile: [Level] Pelvic Girdle: [Level] Neck ROM: unable to test secondary to pain and restriction Lumbar ROM: NT Shoulder ROM: Symmetric in abduction, ER/IR with weakness Hip ROM: Symmetric in abduction, adduction, ER/IR with weakness Knee ROM: Symmetric and intact in Flexion / extension Hands: Normal appearing structure L and R Feet: Normal appearing structure L and R VASCULAR STATUS : Wrist Pulses: [2/4 bilateral radial and ulnar] Pedal Pulses: [2/4 bilateral DP and PT] Color: [Normal] Edema: [None] NEUROLOGIC EXAMINATION: Mental Status: Awake and alert, fully oriented, with normal attention, concentration and memory, and fluent, appropriate speech. Cranial Nerves: I: Olfactory not tested. II: Visual acuity normal, no visual field deficit noted with confrontation. III,IV: Normal pupillary reflexes & intact extraocular movements without nystagmus. V,: Intact symmetrical facial sensation. VII: Intact symmetrical facial motor movement VIII: Hearing intact. IX,X: Intact gag, swallow, & normal voice. XI: Sternocleidomastoid, trapezius function intact. XII: Tongue midline with normal movements. Special Tests: L'hermitte's Sign: Absent Spurling'Sign: Absent Bilateral Cubital percussion test: Absent Bilateral Braden-Tinel sign - Carpal region: Absent Bilateral Straight Leg Raising: Absent Bilateral Motor Exam (0-5/5, N/T) STRENGTH UPPER EXTREMITY Shoulder Abd (Not part of JIMI Motor score): RIGHT 3 LEFT 3 Elbow Flexors: RIGHT 3 LEFT 3 Elbow Extensor: RIGHT3 LEFT 3 Wrrist Dorsiflexors: RIGHT 3 LEFT3 Finger Abductor: RIGHT 3 LEFT 3 Growth Media Mixer Mushroom: RIGHT 3 LEFT 3 LOWER EXTREMITY Hip Flexor (Not part of JIMI Motor Score): RIGHT 3 LEFT3 Knee Flexor: RIGHT 3 LEFT 3 Knee Extensor: [id number] 3 Ankle Dorsiflexion: RIGHT 3 LEFT 3 Ankle Plantarflexion: RIGHT3 LEFT 3 EHL: RIGHT 3 LEFT 3 FHL: RIGHT 3LEFT 3 REFLEXES Biecp: RIGHT [3] LEFT [3] Tricep: RIGHT 3 LEFT3 Brachioradialis: RIGHT 3 LEFT3 Patellar: RIGHT 3 LEFT 3 Achilles: RIGHT 3 LEFT3 Pathological Reflexes Villafuerte's: RIGHT Present LEFT Present Babinski: RIGHT [Absent] LEFT [Absent] Clonus: RIGHT Sustained LEFT Sustained SENSORY Joint Position: [Intact bilaterally] Vibration Unable to feel Pain and LT sense [Intact C5-T1 and L2-S1] but dulled in all levels Dermatomal deficit Dulled all Gait and Functional Evaluation: Ambulatory aids: Bed bound currently Hand and finger dexterity Not intact bilaterally[]. Disdiadochokinesis examination Pos bilaterally. Results MRI and CT reviewed. Kyphotic deformity C5-6 with severe cord compression, b egining myelomalacia at those levels with suspected osteodiscitis. - Labs Labs: Abnormal Lab Results - Last 24 Hours (Table) 01/26/21 01/26/21 01/26/21 Range/Units 16:50 16:50 16:50 Hgb 11.2 L (11.4-16.0) gm/dL Hct 33.8 L (34.0-46.0) % MCV 76.5 L (80.0-100.0) fL RDW 17.3 H (11.5-15.5) % APTT 19.3 L (22.0-30.0) sec Creatinine 0.35 L (0.52-1.04) mg/dL C-Reactive Protein 4.4 H (<1.0) mg/dL H & H 01/26/21 Range/Units 16:50 Hgb 11.2 L (11.4-16.0) gm/dL Hct 33.8 L (34.0-46.0) % Coagulation 01/26/21 Range/Units 16:50 INR 0.9 (<1.2) Result Diagrams: 01/26/21 16:50 01/27/21 05:00 Assessment and Plan Assessment: 1. 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 s/p ORIF femur with revision and infection 3. IVDA 4. Complex medical patient Plan: NPO OR urgently for c5-6 corpectomy and C4-7 Stabilization due to progressive weakness, deformity and pain Medical clearance ICU admission Spine Surgery Risk Review Kimberly Hood is a 36 yo female presenting for evaluation of neck pain with progressive weakness ue and le b/l. It was my pleasure to have seen and examined Kimbrely Hood. In our visit today we have had a chance to go over subjective complaints, physical examination findings and treatments including the natural course hi story without intervention and various interventional options. The patients imaging demonstrates C5-6 presumed osteodiscitis with severe kyphotic deformity On physical exam, Kimberly Hood demonstrates myelopathy with b/l UE and LE weakenss. I have explained to the patient that as their condition progresses it will cause further neurological deficits and eventual paralysis. Based on the patients imaging, physical exam, and the rapid progression and disabling nature of their symptoms, at this time I recommend surgery in the form or a: C5-6 corpectomy with C4-7 Fusion. I discussed the risk and benefits of this procedure at length with Kibmerly Hood. The patient agreed to considered pursuing the procedure abovementioned. Prior to surgery, she should follow up with her PCP (Cardio, ID, IM etc) for clearance. Questions were invited and answered, and the patient wishes to proceed as outlined below. Currently, I am recommendin. C5-6 corpectomy with C4-7 fusion and decompression Anterior 2. Follow up with PCP for surgical clearance 3. Review of surgical risks and benefits as well as an educational packet on the proposed surgical procedure. Risks: All surgical procedures come with inherent risks, including those related to positioning, anesthesia, intraoperative findings, and postoperative complications. It is important to understand that surgery does not come with any guarantee of a successful outcome as complications and adverse events are always possible. The patient was given a handout in office today discussing the surgical procedure and risks associated with the intervention, both of which were discussed with the patient. These risks include but are not limited to the following: * Experiencing same, different or even worse symptoms in back, neck, arms, or legs compared to before surgery. * Requiring further surgery or other forms of treatment presently or at some time in the future at same or other levels of the intended spine surgery. * On an extreme but fortunately relatively rare basis severe complication such as blindness, stroke, heart attack, temporary and/or permanent nerve injury, paralysis, coma, or may occur, sometimes without known explanation. * Surgical complications may include but are not limited to risk of infection, fluid accumulation in the surgical dissection site, including a seroma or hematoma, that requires additional surgery, wound drainage, bleeding, new numbness or weakness, vision changes/loss, spinal fluid leakage, non-healing and/or infected incision, headaches, difficulty or inability to swallow, hoarseness, hemopneumothorax, pneumothorax, impotence, retrograde ejaculation, vaginal dryness; injury to nerves, spinal cord, blood vessels, lymphatics or other vital organs (i.e., bowel injury, injury to the great vessels); heterotopic bone formation; complications related to the hardware such as screws, rods, cages including misplaced hardware, device failure, instrumentation at the wrong spine level, hardware fracture/breakage, or hardware loosening; vertebral failure of the spinal column above or below the newly placed hardware; retained surgical instrumentations or devices and the need for further surgery. * Medical risks of the planned spine surgery include but are not limited to generalized Infections to the whole body or local areas outside of the surgical site (sepsis), heart attack, bleeding, anaphylaxis, meningitis, seizure, epilepsy, hearing loss, burn fisher, laceration of the head or other areas of the body, bruising, hypersensitivity of the skin, bladder over distension; allergic reaction; shoulder injury related to positioning; fat, blood and air clots to other areas of the body like heart, lungs, brain; failure of internal organs such as lungs, kidneys, liver and excessive bleeding. If blood transfusions are necessary, note that transfusions may cause intolerance reactions such as anaphylaxis or other complex reactions. * Despite best efforts, the results of spine surgery might not heal in terms of bone, soft tissues such as skin, fascia, ligaments, and joints. Additionally, in order to achieve best possible results, spine surgery may be carried out beyond the initially planned levels and involve decompression, fusion including insertion of hardware at levels other than the original intended area of surgical interest change some portions of the procedure in order to ensure the best possible outcomes. * With spine surgery and spinal fusion, there are different off label uses of instrumentation (devices, implants and hardware) as well as biological substances (bone morphogenic proteins, demineralized bone matrix) as well as using extra bone from allograft sources (i.e. cadaver bone) or autograft (iliac crest bone, ribs, or the spine itself). The patient has been given in formation about these practices and their inherent risks and benefits. * [facility] is an educational center that serves as a training facility for neurosurgical and orthopedic spine residents and fellows. Residents are physicians who are completing their surgical intensive training following medical school. They assist in the operating room with direct supervision of the attending surgeons. [place] are surgeons who have completed their training and eligible for board certification. They have opted for an elective year of more specialized training in their field. They assist in the operating room under the supervision of the attending surgeons. Physician assistants are medically trained surgical providers who function in the outpatient, inpatient, and operating room setting under the direct supervision of the attending surgeon. * [facility] has multiple operating rooms with single and overlapping rooms running daily. They currently function under the required guidelines as produced by the [facility] Finance Committee with regards to the overlapping rooms and will continue to comply with changes to this policy as they occur. The requirements include and are complied with as follows: (1) the critical portions of the overlapping rooms will not occur at the same time, (2) the attending physician will be physically present during the critical portions of the procedure and immediately available during the entire case, and (3) a back-up attending is designated should the primary attending not be immediately available. The patient has had a chance to review all the listed information, has been given print outs detailing this information, and has had all his/her questions answered to their satisfaction. It was my pleasure to have seen and examined Kimberly Hood. In our visit today we have had a chance to go over my understanding of our patient's current condition, the natural course history without intervention and various interventional options. Questions were invited and answered, and the patient wishes to proceed as outlined above. I have seen and examined the patient for 25 minutes and we have spent more than 50% of the time in repeat and detailed counseling about the patient's condition, its natural course history with out and as much as can be predicted with surgery and re-review of various surgical treatment options. In conclusion, Kimberly Hoodfelix requested we proceed with the above suggested surgery and are willing to accept risks and limitations of the suggested surgery as nature of the disease process and our best attempts at treatment for the condition. Thank you again for allowing us to be part of your patient's care. Please don't hesitate to contact me if you have any further questions. Signed and authenticated by: Varun Campbell [facility] [address] [facility], [address] [address]
[2021-01-27] MEDS ORDERED: THROMBIN (BOVINE) 5,000 UNIT VIAL TOPICAL ONE (06:04)
[2021-01-27] MEDS ORDERED: GELATIN SPONGE,ABSORB (LARGE) 1 EACH SPONGE TOPICAL ONE (06:04)
[2021-01-27] MEDS ORDERED: PHENYLEPHRINE-0.9% NACL SYG 1,000 MCG/10 ML SYRINGE ONE (06:10)
[2021-01-27] MEDS ORDERED: ONDANSETRON 4 MG/2 ML VIAL ONE (06:10)
[2021-01-27] MEDS ORDERED: KETAMINE 10 MG/ML 20 ML VIAL ONE (06:10)
[2021-01-27] MEDS ORDERED: MIDAZOLAM 2 MG/2 ML VIAL ONE (06:10)
[2021-01-27] MEDS ORDERED: fentaNYL (PF) 50 MCG/ML 2 ML AMP ONE (06:10)
[2021-01-27] MEDS ORDERED: PROPOFOL 10 MG/ML 20 ML VIAL IV ONE (06:10)
[2021-01-27] MEDS ORDERED: diphenhydrAMINE 50 MG/ML 1 ML VIAL ONE (06:10)
[2021-01-27] MEDS ORDERED: SUCCINYLCHOLINE CHLORIDE 100 MG/5 ML SYR IV ONE (06:10)
[2021-01-27] MEDS ORDERED: HYDROmorphone (PF) 1 MG/ML ONE (06:10)
[2021-01-27] MEDS ORDERED: LACTATED RINGERS 1,000 ML IV ONE ×3 (06:11→08:52)
[2021-01-27 06:15] LABS: Anisocytosis Slight; Basophils % (A) 0 %; Eosinophils % (A) 0 %; HCT 33.7 % (34.0-46.0); Lymphocytes # (A) 0.5 k/uL (1.0-4.8); Lymphocytes % (A) 8 %; MCH 25.5 pg (25.0-35.0); MCHC 32.7 g/dL (31.0-37.0); Mean Platelet Volume 8.2; Microcytosis Slight; Monocytes # (A) 0.1 k/uL (0-1.0); Monocytes % (A) 1 %; Neutrophils # (A) 6.1 k/uL (1.3-7.7); Neutrophils % (A) 90 %; Platelet Count 304 k/uL (150-450); RBC 4.32 m/uL (3.80-5.40); RDW 17.1 % (11.5-15.5); WBC 6.8 k/uL (3.8-10.6)
[2021-01-27 06:25] LABS: ALT 17 U/L (4-34); African American GFR (CKD) >90 (>60 ml/min/1.73 sqM); Albumin 3.6 g/dL (3.5-5.0); Anion Gap 8 mmol/L; Blood Urea Nitrogen 14 mg/dL (7-17); Calcium 9.3 mg/dL (8.4-10.2); Carbon Dioxide 22 mmol/L (22-30); Chloride 109 mmol/L (98-107); Glucose 128 mg/dL (74-99); Non-African American GFR(CKD) >90 (>60 ml/min/1.73 sqM); Sodium 139 mmol/L (137-145); Total Bilirubin 1.3 mg/dL (0.2-1.3); Total Protein 7.6 g/dL (6.3-8.2)
[2021-01-27 06:28] LABS: Potassium 4.3 mmol/L (3.5-5.1)
[2021-01-27 06:29] LABS: AST 33 U/L (14-36); Alkaline Phosphatase 100 U/L (38-126)
[2021-01-27 08:06] LABS: Allen Test Performed? Yes
[2021-01-27 08:09] LABS: ABG Base Excess -2.7 mmol/L; ABG HCO3 21 mmol/L (21-25); ABG Oxygen Saturation 99.4 % (94-97); ABG PCO2 35 mmHg (35-45); ABG PH 7.39 (7.35-7.45); ABG PO2 203 mmHg (83-108)
[2021-01-27] MEDS ORDERED: ceFAZolin 1,000 MG in SODIUM CHLORIDE 0.9% 1,000 ML IRRIGATION ONE (08:52)
[2021-01-27] MEDS ORDERED: VANCOMYCIN 1,000 MG VIAL MISCELLANE ONE (11:05)
--- NOTE | 2021-01-27 11:25 | XR ---
EXAMINATION TYPE: XR cervical spine limited, FL guidance operating room DATE OF EXAM: 01/27/2021 COMPARISON: 01/26/2021 CT HISTORY: Fusion TECHNIQUE: 12 fluoroscopic spot images from intraoperative cervical spine procedure were submitted fo r review. 1.42 minutes of fluoroscopic time was reported. FINDINGS: Cervical spine hardware is seen traversing the C5-C6 fractures. For full details please see the proce dure note. IMPRESSION: Cervical spine hardware is seen traversing the C5-C6 fractures. For full details please see the proce dure note.
[2021-01-27] MEDS ORDERED: HYDROmorphone 0.5 MG/0.5 ML SYRINGE IVP ONE ×2 (11:47→11:53)
[2021-01-27] MEDS: fentaNYL (PF) 50 MCG/ML 2 ML AMP IVP ONE ×2 (12:04→12:09)
[2021-01-27 14:04] LABS: Iron 3 ug/dL (50-170); Total Iron Binding Capacity 373 ug/dL (228-460)
--- NOTE | 2021-01-27 14:11 | P.CNPUL ---
History of Present Illness Consult date: 01/27/21 Requesting physician: Varun Rogers Chief complaint: Neck pain, neck swelling, bilateral arm weakness History of present illness: This is a 36-year-old white female patient of Dr. Sarmiento with past medical history of polysubstance abuse, who presented to the emergency department on 01/26/2021 per EMS due to complaints of neck pain, , And bilateral arm weakness. Patient reports sustaining a fall and sustaining a fracture of the right femur in May 2020. The fracture was later deemed to be pathological due to possible osteomyelitis and patient for some reason did not receive IV antibiotics. She was subsequently seen at multiple facilities at multiple times in most recently she has been trying to undergo an outpatient MRI due to gradually worsening neck pain and arm weakness for the past several weeks. She was recently seen at [facility] approximately a week ago and was scheduled to undergo an MRI but left AGAINST MEDICAL ADVICE. Over last week she reports gradually worsening neck pain along with weakness of her bilateral arms and legs which has acutely worsened over the past weekend and she called 911 and was brought into the emergency department. Patient had a cervical/thoracic/lumbar spine MRI with and without contrast showing multiple fractures of the cervical spine including C5 and C6, discitis and paravertebral abscess of the cervical spine level, severe spinal stenosis, and cervical spinal cord edema. Brain CT revealed possible mastoiditis. Patient was seen by [facility] surgery in consultation, and surgical intervention was recommended. In the meantime patient was placed in the intensive care unit for closer monitoring, she was started on IV Decadron, and antibiotics in the form of cefepime and vancomycin. She was given oral and IV narcotics for pain relief. On 01/27/2021 she underwent anterior cervical C5-C6 corpectomy, and C4 -C7 stabilization cervical deformity and myelopathy by Dr. Rogers. Seen the patient in the postoperative period in the intensive care unit, she is currently on 3 L of oxygen her pulse ox is 99%, vital signs are stable, she is afebrile. X-ray of the cervical spine following the surgery was completed showing cervical spine hardware traversing the C5-C6 fractures. She continues on antibiotics with cefepime and vancomycin. Remains on Decadron, remains on Neurontin and Flexeril. Review of Systems All systems: negative Constitutional: Reports weakness, Denies chills, Denies fever Eyes: denies blurred vision, denies pain Ears, nose, mouth and throat: Denies headache, Denies sore throat Cardiovascular: Denies chest pain, Denies shortness of breath Respiratory: Denies cough Gastrointestinal: Denies abdominal pain, Denies diarrhea, Denies nausea, Denies vomiting Genitourinary: Denies dysuria, Denies hematuria Musculoskeletal: Reports arm numbness/tingling, Reports frequent falls, Reports neck pain, Denies myalgias Integumentary: Denies pruritus, Denies rash Neurological: Denies numbness, Denies weakness Psychiatric: Denies anxiety, Denies depression Endocrine: Denies fatigue, Denies weight change Past Medical History Additional Past Medical History / Comment(s): back pain, knee pain, broken femur on right---surgery May 2020 Dr Almaraz, " patient was told she had scarring in lungs" History of Any Multi-Drug Resistant Organisms: None Reported Past Surgical History: Cholecystectomy, Tonsillectomy, Tubal Ligation Additional Past Surgical History / Comment(s): right femur fracture with surgery May 2020 Past Anesthesia/Blood Transfusion Reactions: No Reported Reaction Past Psychological History: No Psychological Hx Reported Smoking Status: Current every day smoker Past Alcohol Use History: Occasional Past Drug Use History: Heroin, Methamphetamine - Past Family History Mother Additional Family Medical History / Comment(s): cirrhosis of the liver Medications and Allergies Home Medications Medication Instructions Recorded Confirmed Type Ibuprofen [Motrin] 800 mg PO Q8HR PRN #30 tab 03/03/15 01/26/21 Rx Allergies Allergy/AdvReac Type Severity Reaction Status Date / Time No Known Allergies Allergy Verified 01/26/21 23:01 Physical Exam Vitals: Vital Signs Temp Pulse Pulse Resp BP BP Pulse Ox 01/27/21 13:00 98.0 F 84 13 119/71 98 01/27/21 12:16 88 18 122/66 99 01/27/21 12:00 90 18 135/84 99 01/27/21 11:40 97.8 F 108 H 18 129/75 98 01/27/21 06:00 80 15 121/75 94 L 01/27/21 05:00 86 16 121/63 94 L 01/27/21 04:00 98.0 F 85 15 118/49 93 L 01/27/21 03:00 87 15 124/52 92 L 01/27/21 02:40 90 15 93 L 01/27/21 02:30 87 16 93 L 01/27/21 02:20 84 15 93 L 01/27/21 02:10 84 14 93 L 01/27/21 02:00 84 15 121/63 93 L 01/27/21 01:50 85 16 121/63 91 L 01/27/21 01:40 89 20 121/63 93 L 01/27/21 01:30 86 13 121/63 94 L 01/27/21 01:20 79 20 121/63 93 L 01/27/21 01:10 87 17 121/63 95 01/27/21 01:00 92 20 95 01/27/21 00:56 85 16 124/74 98 01/27/21 00:54 98.4 F 94 19 131/72 94 L 01/27/21 00:00 93 L 01/26/21 23:30 82 18 116/73 98 01/26/21 23:08 86 18 115/83 01/26/21 22:31 98.4 F 89 18 92 L 01/26/21 22:00 77 18 116/72 95 01/26/21 19:52 69 18 106/65 95 01/26/21 15:40 97.5 F L 67 16 112/66 99 Intake and Output 01/26/21 01/27/21 01/27/21 22:59 06:59 14:59 Intake Total 1000 1151 Output Total 0 1050 Balance 1000 101 Intake: IV 1000 1151 Output: Urine 0 900 Estimated Blood Loss 150 Other: Weight 90.718 kg 91.3 kg ABP, PAP, CO, CI - Last 8 Hours Arterial Blood Pressure 130/65 GENERAL EXAM: Drowsy, but arousable to voice 36-year-old white female on 3 L of oxygen pulse ox of 99% comfortable in no apparent distress, laying in a flat in bed, patient has a cervical collar in place HEAD: Normocephalic/atraumatic. EYES: Normal reaction of pupils, equal size. Conjunctiva pink, sclera white. NOSE: Clear with pink turbinates. THROAT: No erythema or exudates. NECK: No masses, no JVD, no thyroid enlargement, no adenopathy. Right neck surgical incisions covered with a surgical dressing, there is a wound drain in the right neck, with minimal serosanguineous output CHEST: No chest wall deformity. Symmetrical expansion. LUNGS: Equal air entry with no crackles, wheeze, rhonchi or dullness. CVS: Regular rate and rhythm, normal S1 and S2, no gallops, no murmurs, no rubs ABDOMEN: Soft, nontender. No hepatosplenomegaly, normal bowel sounds, no guarding or rigidity. EXTREMITIES: No clubbing, no edema, no cyanosis, 2+ pulses and upper and lower extremities. MUSCULOSKELETAL: Muscle strength and tone normal. SPINE: No scoliosis or deformity SKIN: No rashes, patient has multiple areas of need fisher and small scabs on her hands, no open areas no open wounds CENTRAL NERVOUS SYSTEM: Drowsy but arousable to voice No focal deficits, tone is normal in all 4 extremities. Results - Laboratory Findings CBC and BMP: 01/27/21 05:00 01/27/21 05:00 ABG ABG pH 7.39 (7.35-7.45) 01/27/21 07:52 ABG pCO2 35 mmHg (35-45) 01/27/21 07:52 ABG pO2 203 mmHg (83-108) H 01/27/21 07:52 ABG O2 Saturation 99.4 % (94-97) H 01/27/21 07:52 PT/INR, D-dimer PT 10.1 sec (9.0-12.0) 01/26/21 16:50 INR 0.9 (<1.2) 01/26/21 16:50 Abnormal lab findings: Abnormal Labs 01/26/21 01/26/21 01/26/21 16:50 16:50 16:50 Hgb 11.2 L Hct 33.8 L MCV 76.5 L RDW 17.3 H Lymphocytes # ESR APTT 19.3 L ABG pO2 ABG O2 Saturation Chloride Creatinine 0.35 L Glucose C-Reactive Protein 4.4 H 01/27/21 01/27/21 01/27/21 05:00 05:00 05:00 Hgb 11.0 L Hct 33.7 L MCV 78.0 L RDW 17.1 H Lymphocytes # 0.5 L ESR 72 H APTT ABG pO2 ABG O2 Saturation Chloride Creatinine 0.38 L Glucose C-Reactive Protein 01/27/21 01/27/21 05:00 07:52 Hgb Hct MCV RDW Lymphocytes # ESR APTT ABG pO2 203 H ABG O2 Saturation 99.4 H Chloride 109 H Creatinine 0.38 L Glucose 128 H C-Reactive Protein - Diagnostic Findings Additional studies: CT of the brain, MRI results of the cervical/thoracic/lumbar spine, CT of the cervical and thoracic spine results reviewed, x-ray of the cervical spine reviewed Assessment and Plan Plan: Assessment: #1. Neck pain, increased weakness in bilateral upper extremities and weakness involving the lower extremities, related to C5-C6 osteo-discitis, severe kyphotic deformity, severe stenosis and progressive myelopathy, status post anterior cervical fusion, C5-C6 corpectomy, and C4 C7 stabilization, postope rative day #0 #2. History of right femur fracture with right hip ORIF in May 2020 #3. Possible paravertebral abscess, currently covered with cefepime and vancomycin #4. History of polysubstance abuse including IV methamphetamine #5. History of nicotine dependence #6. History of poor medical compliance #7. History of possible osteomyelitis in right hip, the details are unknown to us Plan: Provide incentive spirometer Maintain pain control Continue antibiotics Blood cultures have been sent, Wound cultures have been sent during surgery, we will await final results ID service for antibiotic management Maintain aspiration precautions Increase IV lactated Ringer's to 100 ML per hour GI and DVT prophylaxis per spine surgery Glucose monitoring Diet per spine surgery, we will advance per their recommendation Continue close monitoring in the intensive care unit I performed a history & physical examination of the patient and discussed their management with my nurse practitioner, Leslie Mcginnis. I reviewed the nurse practitioner's note and agree with the documented findings and plan of care. Lung sounds are positive for diminished breath sounds. The findings and the impression was discussed with the patient. I attest to the documentation by the nurse practitioner. Time with Patient: Greater than 30
[2021-01-27] MEDS: LACTATED RINGERS 1,000 ML IV SCH (14:47)
[2021-01-27] MEDS: PANTOPRAZOLE 40 MG/10 ML VIAL IVP SCH (14:51)
[2021-01-27] MEDS: GABAPENTIN 300 MG CAP PO SCH ×2 (15:36→23:51)
--- NOTE | 2021-01-27 16:21 | P.PN ---
Progress Note - Text Progress Note Date: 01/27/21 Pt s/e in ICU post op. She is in hard collar. Drain is in place. She is maintaining bp and MAPS >80 currently. She is awake and alert. Answers questions. C/o sore neck and throat. She is moving all 4 extremities currently legs and arms with reasonable strength and control she is now able to open her hands better when she was not being able to do this before. She is intact sensation currently. She denies any arm pain or leg pain. She denies any perineal numbness or tingling she states hoarse voice sore throat. Spoke with nursing at bedside they going to maintain her maps at or above 80 they are continuing with the NASCIS III protocol until about 10:00 tonight and then will switch to Decadron 6 every 4 for weaning after. They are doing glucose checks related to this. She will get every 2 neuro checks we went to her neuro exam with the nursing at bedside she does have sustained clonus in her right lower extremity she is about 10-12 beats her left lower extremity her reflexes are somewhat brisk in her lower extremities and her upper extremities she has Arnaud's bilaterally and she does have weakness in her bilateral arms and legs. Drain is in place anteriorly and has good output. We will evaluate her tomorrow the plan is to take her for the posterior portion of this surgery on tuesday.
[2021-01-27] MEDS: HYDROcodone/APAP 5-325MG 1 EACH TAB PO PRN ×2 (16:31→23:47)
--- NOTE | 2021-01-27 16:33 | CT ---
EXAMINATION TYPE: CT cervical spine wo con DATE OF EXAM: 01/27/2021 COMPARISON: 01/26/2021 HISTORY: s/p decompression and fusion CT DLP: 357.[address] of the cervical spine was performed with bone and soft tissue window settings submitted . Coronal and sagittal reconstruction is obtained. There is been interval decompression and fusion extending from C4 through C7. There is anterior fixat ion plate in place. Bone graft is noted to extend from the inferior endplate of C4 through the superi or endplate of C7. Alignment is anatomic. There is severe streak artifact identified no evidence for residual bony fragments. Spinal canal appears capacious. Postsurgical soft tissue changes seen anteri or right neck. IMPRESSION: 1. Decompression and fusion C4-C7 as noted above. Appropriate postoperative alignment. Spinal canal a ppears capacious without evidence for cord compression at this time. Lack of contrast does limit eval uation.
--- NOTE | 2021-01-27 17:01 | P.OP ---
Date of Procedure: 01/27/21 Preoperative Diagnosis: 1. 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 Cervical deformity secondary to #1 with severe kyphotic deformity C5-6 3. Severe cervical myelopathy, borderline SCI secondary to cervical stenosis related to 1 and 2. 4. Anterior spinal phlegmon 5. IVDA 6. hx of R femur fracture with infection s/p fixation 7. Complex medical patient Postoperative Diagnosis: 1. 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 Cervical deformity secondary to #1 with severe kyphotic deformity C5-6 3. Severe cervical myelopathy, borderline SCI secondary to cervical stenosis related to 1 and 2. 4. Anterior spinal phlegmon 5. IVDA 6. hx of R femur fracture with infection s/p fixation 7. Complex medical patient Procedure(s) Performed: 1. Anterior right sided carotid-type exposure 2. Irrigation and debridement of C5-6 and anterior spinal phlegmon using the following: -Rongure used for removal of phlegmon tissues -High speed tony for removal of bone -Pituitary for removal of soft tissue phlegmon anterior neck 3. C5 corpectomy 4. C6 corpectomy 5. Anterior interbody arthrodesis C4-C7 6. Cervical deformity correction C4-7 7. C4-7 application of intervertebral biomechanical device 8. C4-C7 application of separate nonintegrated anterior cervical plate instrumentation 9. Allograft for spinal surgery 10. Use of intraoperative microscope 11. Use of introperative neurophysiological SS, EMG and MEP monitoring Implants: Savita Peek 44 mm anterior corpectomy cage Savita Bent anterior cervical plate 63 mm Bio4 Allograft DBM Anesthesia: GETA Surgeon: Varun Rogers Filling Machine Operator #1: Yobani Cabrera (Was present for the entire case and necessary due to the complexity of the case) Estimated Blood Loss (ml): 150 IV fluids (ml): 2,500 Urine output (ml): 1,500 Pathology: other (Two cultures sent, two specimines for path sent) Condition: stable Disposition: ICU Indications for Procedure: 36 yo female presented due to inability to ambulate, progressive weakness in UE and LE b/l as well as neck pain. She was evaluated by outside facility and she left AMA. She has a hx of IVDA. She presented then via EMS to [facility] with these complaints. She was worked up with MRI and CT scan which showed erosive osteodiscitis of C5-6 with severe kyphosis, cervical deformtiy and severe cervical stenosis, mylomalacia and myelopathy. On exam pt was myelopathic and her UE and LE were getting weaker so she was admitted and urgent worked up for surgical intervention. Operative Findings: Osteodiscitis C5-6 with severe erosion and deformity of C5 and C6. Epidural phlegmon noted as well as hypertrophied PLL. Description of Procedure: The patient was seen and examined in the preoperative area. All preoperative protocols were followed. Informed consent was obtained risks and benefits of the procedure were discussed at length. Risks including bleeding infection dam age to the surrounding tissue and risk of reoperation were discussed with the patient. Risk of anesthesia up to and including was a discussed with the patient. These are outlined in the risk review. They were willing to accept these risks and all of the risks of surgery. The patient was given a weight- based dose of antibiotics in the form of patient was on vancomycin from the floor. The patient was seen and evaluated by the anesthesia team who deemed them fit for surgery. The site was marked, the patient was willing to proceed with the procedure. The patient was transferred to the operative suite by the Department of anesthesia. They were then drifted off to sleep by the department anesthesia GETA. The patient tolerated this well. [Mcclellan catheter was placed by nursing staff, atraumatically]. Once confirmation of lines and ventilation the patient was transferred to a supine flattop Roni table very carefully. All bony prominences including wrists, elbows, axilla, chest, hips, and thighs, and feet were padded very well. Special attention was paid to the genitalia and these were padded accordingly. SCDs were placed on bilateral lower extremities and were connected. Arms were well padded and placed tucked at her side with thumb up position and well-padded. Shoulders were taped down. A shoulder roll was carefully placed underneath the patient's shoulders to allow for extension and this was done under fluoroscopic guidance as well as intraoperative neuro monitoring guidance. [employer] tongs were placed on the patients head 1 cm above the external auditory meatus and in line with such an 20 pounds of traction were sequentially placed on the head in 5 pound increments taking fluoroscopic images each time to assure that there was no overt distraction in this area.. Once in position, again we confirmed good ventilation capabilities and that lines were running appropriately. The patient's cervical anterior spine was then exposed. 1010s were placed outlining the incision site. Standard alcohol was used to clean the incision site and allowed to dry. C-arm was used to biomark the patient and confirm level for incision which was marked with a skin marker. Operative briefing was performed with all teams and everyone in agreement to proceed. The patient was then prepped and draped in a normal sterile fashion. Timeout was then performed and all parties were in agreement with the procedure to be performed. And oblique skin incision was made over the previously bio marked area outlining the SCM on the right-hand side. Dissection was taken down to the platysma muscle which was then split in line with its fibers which allowed visualization of the sternocleidomastoid muscle. A plane was developed between the sternocleidomastoid and the strap muscles medially the omohyoid was visualized and this was released for visualization purposes. The carotid sheath was maintained lateral entirely. Careful dissection using blunt dissection as well as Kitners was used to then access the anterior longitudinal ligament carefully mobilizing the trachea and esophagus away from this area. Once there was good mobilization we took fluoroscopic images to determine where our dissection had landed us and we were directly over the C5 6 disc space. We then proceeded to dissect proximally as well as distally to allow for good visualization as well as to identify any continued infective process in this area. Once we had good visualization of the anterior longitudinal ligament in this area and confirmed levels using lateral fluoroscopic pictures and marked them we use bipolar and electric Bovie to incise the anterior longitudinal ligament from C4 to C7. This ligament was extremely hypertrophied in the area as soon as we made it through over the C5 6 disc space we encountered purulent material. This was then cultured. We then proceeded with subperiosteal dissection of the anterior longitudinal ligament out over the uncovertebral joints of C4 through C7. There was large deformity noted at the C5 6 region C5 had slipped completely posteriorly and there is a large step-off between the anterior portion of C6 to C5. We performed very careful bipolar cautery dissection around the lateral portion of the bodies as well as blunt dissection with a Spaulding elevator. Once the longissimus muscles and the LL had been released in this area to allow visualization throughout we placed the trimline retractor underneath this flap to allow visualization. We then turned our attention to placement of Antoine pins to 14 Antoine pins one was placed in C4 body under lateral fluoroscopic guidance in the next placed in the C7 mid body under fluoroscopic guidance and placed a distractor over this area and under careful distraction and lateral fluoroscopic images we performed a distractive correction maneuver of the cervical spine taking care for intraoperative neuro monitoring throughout the whole process as well as lateral fluoroscopic images the intraoperative neuro monitoring signals remained stable after this reduction maneuver this allowed for visualization of the C5 6 purulent disc space as well as distract C4 5 and C6 7 for better discectomy. We then proceeded with discectomy of C4 to C5 using a Malika Charanjit to debulk the disc in this area followed by a curet to scrape the endplates. Once the endplates had been cleared of disc material and cartilage material the PLL was visualized and we carefully probed the area to know where the posterior aspect of C5 was in relation to the dura high-speed drill was then used to remove osteophytes in the posterior aspect of C4 as well as decorticate this area to O Kerrison was then used to remove disc material a 60 upbiter was used to access posterior to the PLL and to release the PLL entirely from uncovertebral joint to uncovertebral joint at this disc level once this was accomplished and we knew our level of the dura in this area we turned our attention to the C5 6 region which was completely eroded Malika Charanjit was used to remove what was left of the disc in this area PLL was extremely thickened in this area and a 60 up-biting curette was used to access the spinal canal. He is due to run through her Kerrison to release the PLL across this disc space. Once we had our levels of dura above and below C5 we were able to use a high-speed bur to perform corpectomy of C5 in this area by connecting disc space to disc space on right and left sides taking care to leave a shell of bone for protection of the vertebral artery laterally. We checked our resection against the implant that was to be placed and it was adequate. A 60 upbiter was then used to remove this corpectomy bone from the center portion of C5 and carefully scraped away the PLL as well as dura from this area which is very scarred. This allowed for decompression of the C5 cord area. Meticulous hemostasis was performed using bone wax over open bone edges as well as FloSeal and patties. Motors were run after decompression the remained stable. We then turned our attention to completing this same effort at C6 which was extremely eroded. We first performed discectomy at C6-C7 debulking until PLL was reached the PLL was then released using curettes as well as Kerrison rongeurs. We then connected the previous cranial corpectomy site to caudal through the C6 vertebral body and the remainder of the vertebral body was removed careful scraping with a 60 up-biting curette was used to remove the body from the extremely scarred PLL and dural areas. Once this was removed we once again checked our dimensions and diameter of resection and it was adequate to fit our graft as well as decompress the nerves in the area in the foramen. We were careful to again leave a sliver of bone for protection of the vertebral artery in this area. Nerve roots were visualized and were completely intact at all levels. After this resection we copiously irrigated the wound with antibiotic irrigation 3 L. Curet was used to scrape the bone edges of the superior endplate of C7 as well as the inferior endplate of C4 to allow for minimal resection but bleeding healing surfaces. We performed meticulous hemostasis using bipolar electrocautery as well as FloSeal and patties. We did perform motors again after the decompression and these remained stable with slightly less amplitude. After irrigation and debridement and decompression now we used a caliper to size the corpectomy site and select an appropriate graft size. A 44 mm graft was selected this was then impregnated with bio 4 DBM and allograft. Under lateral fluoroscopic guidance we placed this graft atraumatically. Once the graft was in good position on lateral fluoroscopy we did take an AP fluoroscopy to ensure that it was seated appropriately and it was. We then perform motors after this which were stable. Once the graft was in place distraction was removed from the Antoine pins. The graft was tested and it was stable. Antoine pins were then removed and bone wax placed in the void. We then selected a plate for anterior cervical plating this was then sized under lateral fluoroscopy. It was pinned into place and AP and lateral fluoroscopy confirmed good plate placement centrally. We then drilled first the caudal screws and a fixed orientation under lateral fluoroscopy. The screws were then placed and tightened and the plate was locked. We then turned our attention to the C4 screws which we then placed also in a fixed position these were drilled under lateral fluoroscopy and placed. These were then locked into place. We confirmed placement then under AP and lateral fluoroscopy and that was adequate plate placement as well. We then copiously irrigated the wound after removal of retractors with antibiotic irrigation 3 more liters. We placed FloSeal in the gutters around the graft for meticulous hemostasis. A drain was placed deep and taken out of its own portal. We inspected the esophagus and there was no damage noted. Motors were once again completed and there was no significant changes at this time. Then proceeded to closure with 3-0 Vicryl in the platysmal layer followed by 3-0 Vicryl in the subcu layer followed by 40 strata fix and the subcuticular layer this is then cleaned and dressed sterilely with exophytic and glue and allowed to dry once dry it was covered with a aqua cell dressing. The drain was sewn in place with the 2-0 Vicryl and drain sponge placed as well as Tegaderms. The drapes were then removed and the patient was placed in a hard cervical collar. The [employer] tongs were then removed along with traction. The shoulders were taped and a final motor was run which was stable. We did place 3 mario on the right-hand side of the [employer] tongs as there was some oozing from this area. The left side was clean. The patient was transferred back to her hospital bed atraumatically. Drain continued to hold suction and were in good position. Patient was then awakened and extubated by the department of anesthesia having tolerated the procedure very well with no complications. She was transferred to the ICU in stable condition.
--- NOTE | 2021-01-27 19:08 | HP ---
HISTORY AND PHYSICAL CHIEF COMPLAINT: Neck pain. HISTORY OF PRESENT ILLNESS: This 36-year-old white female started having trouble many months ago when she fell and had an unexpected fracture of the right femoral shaft. At that time, this was determined to be a pathologic fracture. She was treated with intramedullary elder. Subsequently, she was evaluated for several nodules in the lung and went to an extensive workup looking for malignancy which was never found. As time has gone on, she has been referred to an orthopedic oncologist in the [facility] area who has determined that this may be due to infection. She was scheduled to undergo an open procedure, but it has not been done. About a week or 10 days ago, she presented to the [facility] with severe pain in the neck. She was being evaluated and an MRI was ordered when she signed out against medical advice. She has a long-standing history of narcotic addiction and abuse. She is very noncompliant, does not keep appointments, return phone calls, etc. She presented to the emergency room at this time with severe pain in her neck and an emergent MRI demonstrated what looked like an apparent fracture with possibility of infection and osteomyelitis. She apparently has had some symptoms of weakness and discomfort in the arms. REVIEW OF SYSTEMS: Review of systems was not obtained at this time. PAST MEDICAL HISTORY, FAMILY HISTORY, SOCIAL HISTORY: To be found in detail in her prior records. She is not currently taking any medication. PHYSICAL EXAM: 1. Deferred because the patient was taken to the operating room. IMPRESSION: 1. Cervical spine fracture. 2. Rule out osteomyelitis and pathologic fracture of the neck. 3. History of pathologic fracture of the right femur. 4. Longstanding history of substance abuse and addiction. PLAN: Follow with Orthopedic Surgery. Thank you respectfully. MMNELL / ADRIÁN: [id number] /
--- NOTE | 2021-01-27 19:16 | PN ---
PROGRESS NOTE CHIEF COMPLAINT: Pain in the neck with possible pathologic fracture and osteomyelitis. HISTORY OF PRESENT ILLNESS: This patient has gone to the operating room. IMPRESSION: Fracture of the cervical spine with possible underlying osteomyelitis. PLAN: Follow patient after she is out of the operating room. MMODL / IJN: [id number] /
[2021-01-27] MEDS ORDERED: DEXAMETHASONE SOD PHOSPHATE 10 MG/ML 1 ML VIAL IV PRN (22:00)
[2021-01-27 23:46] LABS: Glucose,Whole Blood 161 mg/dL (75-99)
[2021-01-28] MEDS: LACTATED RINGERS 1,000 ML IV SCH ×3 (02:44→20:14)
--- NOTE | 2021-01-28 05:18 | CONS ---
CONSULTATION DATE OF SERVICE: 01/27/2021 REASON FOR CONSULTATION: Cervical spine abscess. HISTORY OF PRESENT ILLNESS: The patient is a 36-year-old female with past medical history significant for polysubstance presented to [facility] ER last night for evaluation of neck pain, swelling and bilateral arm weakness. The patient apparently initially did have a fall with fracture of the right femur back in May last year. Apparently the patient's fracture was found to be pathological possible due to osteomyelitis. However, the patient has not been treated with IV antibiotic therapy. The patient has been in and out of different facilities and has been leaving against medical advice as the patient has struggled with IV drug use, especially with methamphetamines. Over the last one week, the patient started having increasing neck pain described to be more of a throbbing intensity almost 7 to 8/10 along with some bilateral arms and legs with weakness getting worse. 911 was called and the patient was brought into the ER. At [facility] ER, the patient did have extensive evaluation in this patient who did have cervical thoracic spine lumbar spine MRI with contrast which did show multiple fractures of cervical spine including C5-6 diskitis and paravertebral abscess at the cervical spine and spinal cord edema. The patient has been evaluated by Spine Surgery and the patient was taken to the OR this morning. The patient did have an irrigation and debridement of C5-6 and anterior spinal C5, C6 corpectomy, anterior interbody arthrodesis cervical deformity correction C4-7, application of intervertebral biomechanical device. Culture has been obtained which is currently pending. Patient was started on antibiotic in the form of cefepime, vancomycin and has been admitted to ICU. Infectious disease was consulted for further management of antibiotic therapy. Most of the information has been obtained from review of the chart and talking with nursing staff as the patient in the postop phase, recovering from anesthesia and in a good position to provide any history. REVIEW OF SYSTEMS: Positive points have been mentioned in HPI. Complete review could not be obtained. PAST MEDICAL HISTORY: IV drug use, history of right femur fracture. PAST SURGICAL HISTORY: Cholecystectomy, tonsillectomy, tubal ligation, right femoral fracture repair. SOCIAL HISTORY: Current everyday smoker. Drinks. Does admit to heroin and methamphetamine use. FAMILY HISTORY: Mother with history of cirrhosis of the liver. ALLERGIES: No known drug allergies. MEDICATIONS: The patient is on vancomycin, Pharmacy to dose, cefepime 2 grams q.8 hours. He is on Flexeril, Decadron, Neurontin, lactated Ringers, Solu-Medrol, Narcan, Protonix. PHYSICAL EXAMINATION: On examination, her blood pressure is 121/57. Pulse 89. Temperature 98. She is 97% on room air. GENERAL description is a middle-aged female lying in bed in no distress. No tachypnea or accessory muscles of respiration use. HEENT: Examination shows slight pallor. No scleral icterus. Oral mucous membranes dry. NECK: Trachea central. No thyromegaly. LUNGS unlabored breathing, decreased intensity of breath sounds. No wheeze. HEART: S1, S2. Regular rate and rhythm. ABDOMEN: Soft, no tenderness. No guarding and no rigidity. EXTREMITIES: No edema of the feet. SKIN examination: No rash or mass palpable. NEUROLOGIC: The patient is awake and alert and oriented times two. Mood and affect normal. LABORATORY DATA: White count 6.8. BUN of 14, creatinine 0.8. Electrolytes have been normal. Liver enzymes are normal. Cultures are currently pending. DIAGNOSTIC IMPRESSION AND PLAN: Patient with cervical spine spinal abscess. This patient does have a history of IV drug use, likely the risk factor for this abscess and will need to cover for the resistant gram-positive as well as gram-negative pathogen likely responsible for the sepsis in this patient status post extensive cervical spine surgery and drainage of the abscess. PLAN: 1. Vancomycin, Pharmacy to dose target of 15. 2. Cefepime 2 g q.8h for adequate antibiotic coverage. 3. We will follow on clinical condition and culture to further adjust medication if needed. Thank you for this consultation. We will follow this patient along with you. MMODL / IJN: [id number] / MTDD
[2021-01-28] MEDS: CEFEPIME 2 GM in SODIUM CHLORIDE 0.9% 100 ML IVPB SCH ×3 (06:26→20:13)
[2021-01-28] MEDS: VANCOMYCIN 1,500 MG in SODIUM CHLORIDE 0.9% 250 ML IVPB SCH ×2 (06:26→18:15)
--- NOTE | 2021-01-28 07:27 | XR ---
EXAMINATION TYPE: XR chest 1V portable DATE OF EXAM: 01/28/2021 COMPARISON: 12/06/2012 HISTORY: Postoperative TECHNIQUE: Single frontal view of the chest is obtained. FINDINGS: There is no focal air space opacity, pleural effusion, or pneumothorax seen. The cardiac silhouette size is within normal limits. The osseous structures are intact. IMPRESSION: No acute process.
[2021-01-28 07:45] LABS: Anisocytosis Slight; Basophils % (A) 0 %; Eosinophils % (A) 0 %; HCT 28.7 % (34.0-46.0); HGB 9.9 gm/dL (11.4-16.0); Lymphocytes # (A) 0.7 k/uL (1.0-4.8); Lymphocytes % (A) 11 %; MCH 26.2 pg (25.0-35.0); MCHC 34.5 g/dL (31.0-37.0); MCV 75.9 fL (80.0-100.0); Mean Platelet Volume 7.5; Microcytosis Slight; Monocytes # (A) 0.1 k/uL (0-1.0); Monocytes % (A) 2 %; Neutrophils # (A) 5.7 k/uL (1.3-7.7); Neutrophils % (A) 87 %; Platelet Count 256 k/uL (150-450); RBC 3.78 m/uL (3.80-5.40); RDW 17.1 % (11.5-15.5); WBC 6.6 k/uL (3.8-10.6)
[2021-01-28] MEDS: DEXAMETHASONE SOD PHOSPHATE 10 MG/ML 1 ML VIAL IV SCH ×5 (07:50→20:13)
[2021-01-28 07:56] LABS: ALT 16 U/L (4-34); AST 21 U/L (14-36); African American GFR (CKD) >90 (>60 ml/min/1.73 sqM); Albumin 2.9 g/dL (3.5-5.0); Alkaline Phosphatase 83 U/L (38-126); Anion Gap 5 mmol/L; Blood Urea Nitrogen 15 mg/dL (7-17); Calcium 8.3 mg/dL (8.4-10.2); Carbon Dioxide 26 mmol/L (22-30); Chloride 110 mmol/L (98-107); Glucose 192 mg/dL (74-99); Magnesium 1.7 mg/dL (1.6-2.3); Non-African American GFR(CKD) >90 (>60 ml/min/1.73 sqM); Phosphorus 2.3 mg/dL (2.5-4.5); Potassium 3.5 mmol/L (3.5-5.1); Sodium 141 mmol/L (137-145); Total Bilirubin 0.8 mg/dL (0.2-1.3); Total Protein 6.4 g/dL (6.3-8.2)
[2021-01-28] MEDS: HYDROcodone/APAP 5-325MG 1 EACH TAB PO PRN ×3 (07:59→20:13)
[2021-01-28] MEDS: GABAPENTIN 300 MG CAP PO SCH ×3 (07:59→21:23)
[2021-01-28] MEDS: PANTOPRAZOLE 40 MG/10 ML VIAL IVP SCH (08:06)
--- NOTE | 2021-01-28 08:39 | P.PN ---
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 She continues to improve in strength and motion of her UE and LE b/l. She is able to move her legs up off the bed as well as her arms. Her hands are now opening and closing better. She did well overnight with some pain with swallowing and stiffnes in neck but no other issues. Per Nsg her Maps have remained stable. And she is not requiring pressers. She is on q2 neuro checks which are going well and improving. Objective - Vital Signs Vital signs: Vital Signs Temp 98.3 F 01/28/21 08:00 Pulse 100 01/28/21 08:00 Resp 13 01/28/21 08:00 BP 122/78 01/28/21 08:00 Pulse Ox 96 01/28/21 08:00 Intake & Output 01/27/21 01/28/21 01/28/21 18:59 06:59 18:59 Intake Total 2351 1100 200 Output Total 1730 670 225 Balance 621 430 -25 Weight 96.4 kg Intake: IV 1751 1100 200 Lactated Ringers 1,000 ml 600 1100 200 @ 100 mls/hr IV .Q10H [facility] Rx#:[id number] Intake, IV Titration 600 Amount Cefepime 2 gm In Sodium 100 Chloride 0.9% 100 ml @ 25 mls/hr IVPB Q8H [facility] Rx#: [id number] Vancomycin 1,500 mg In 250 Sodium Chloride 0.9% 250 ml @ 125 mls/hr IVPB Q8H [facility] Rx#:[id number] methylPREDNISolone SOD 250 SUCC 2,000 mg In Sodium Chloride 0.9% 250 ml @ 62 .5 mls/hr IVPB Q4H [facility] Rx #:[id number] Output: Urine 1580 670 225 Estimated Blood Loss 150 Other: Voiding Method Indwelling Catheter Indwelling Catheter ABP, PAP, CO, CI - Last Documented Arterial Blood Pressure 107/92 - Exam PHYSICAL EXAMINATION: Vitals: Stable General: Awake, alert, appropriate for age, in no acute distress. HEENT: No unusual neck masses around region of lateral neck triangle, thyroid, supraclavicular groove. [Heart: Regular rate and rhythm, normal S1, S2 and no murmur/gallop.] [Lungs: Clear to auscultation bilaterally with no use of accessory muscles.] Extremities: Skin warm and dry without no acute lesions, coloration, temperature, skin intact, no tenderness or erythema. Integument: Hairy patches: Absent Dorsal skin dimples: Absent Cafe au lait spots: Absent Surgical incisions: CDI anterior neck in cision. Drain in place and has about 25 cc out serosanguinous. Palpation: Please see Pain drawing on Intake sheet for further detail. (Tenderness = T, Nontender = NT, Swelling = S, Ecchymosis = E) Findings on Midline and paraspinal palpation and percussion: Cervical: tennis palpation posteriorly with deformity home noted anterior tenderness due to incision. No flucctuence no large masses. Thoracic: NT Lumbar: NT Sacral: NT Special findings: None VASCULAR STATUS : Wrist Pulses: [2/4 bilateral radial and ulnar] Pedal Pulses: [2/4 bilateral DP and PT] Color: [Normal] Edema: [None] NEUROLOGIC EXAMINATION: Mental Status: Awake and alert, fully oriented, with normal attention, concentration and memory, and fluent, appropriate speech. Cranial Nerves: I: Olfactory not tested. II: Visual acuity normal, no visual field deficit noted with confrontation. III,IV: Normal pupillary reflexes & intact extraocular movements without nystagmus. V,: Intact symmetrical facial sensation. VII: Intact symmetrical facial motor movement VIII: Hearing intact. IX,X: Intact gag, swallow, & normal voice. XI: Sternocleidomastoid, trapezius function intact. XII: Tongue midline with normal movements. Special Tests: L'hermitte's Sign: Absent Spurling'Sign: Absent Bilateral Cubital percussion test: Absent Bilateral Braden-Tinel sign - Carpal region: Absent Bilateral Straight Leg Raising: Absent Bilateral Motor Exam (0-5/5, N/T) STRENGTH UPPER EXTREMITY Shoulder Abd (Not part of JIMI Motor score): RIGHT 3 LEFT 3 Elbow Flexors: RIGHT 3 LEFT 3 Elbow Extensor: RIGHT3 LEFT 3 Wrrist Dorsiflexors: RIGHT 3 LEFT3 Finger Abductor: RIGHT 3 LEFT 3 Rn Burn: RIGHT 3 LEFT 3 LOWER EXTREMITY Hip Flexor (Not part of JIMI Motor Score): RIGHT 3 LEFT3 Knee Flexor: RIGHT 3 LEFT 3 Knee Extensor: [id number] 3 Ankle Dorsiflexion: RIGHT 3 LEFT 3 Ankle Plantarflexion: RIGHT3 LEFT 3 EHL: RIGHT 3 LEFT 3 FHL: RIGHT 3LEFT 3 While specific strength testing shows antigravity, she is improving quite a bit in her strength and will likely progress. She is showing some 4-/5 strengths in arms and her hands are moving much better. She does have soreness and some pain still. REFLEXES Biecp: RIGHT [3] LEFT [3] Tricep: RIGHT 3 LEFT3 Brachioradialis: RIGHT 3 LEFT3 Patellar: RIGHT 3 LEFT 3 Achilles: RIGHT 3 LEFT3 Improving and not as brisk Pathological Reflexes Villafuerte's: RIGHT Present LEFT Present Improving and not as brisk Babinski: RIGHT [Absent] LEFT [Absent] Clonus: RIGHT Sustained LEFT Sustained still has clonus b/l, RLE no longer sustained about 12 beats, left still sustained but less brisk SENSORY Joint Position: [Intact bilaterally] Vibration Unable to feel Pain and LT sense [Intact C5-T1 and L2-S1] but dulled in all levels Dermatomal deficit: Improving in all ext Gait and Functional Evaluation: Ambulatory aids: Bed bound currently Hand and finger dexterity Not intact bilaterally[]. Disdiadochokinesis examination Pos bilaterally. - Labs CBC & Chem 7: 01/28/21 07:00 01/28/21 07:00 Labs: Abnormal Lab Results - Last 24 Hours (Table) 01/27/21 01/27/21 01/27/21 Range/Units 05:00 16:28 23:44 RBC (3.80-5.40) m/uL Hgb (11.4-16.0) gm/dL Hct (34.0-46.0) % MCV (80.0-100.0) fL RDW (11.5-15.5) % Lymphocytes # (1.0-4.8) k/uL Chloride (98-107) mmol/L Creatinine (0.52-1.04) mg/dL Glucose (74-99) mg/dL POC Glucose (mg/dL) 161 H (75-99) mg/dL Plasma Lactic Acid Willie <0.5 L (0.7-2.0) mmol/L Calcium (8.4-10.2) mg/dL Phosphorus (2.5-4.5) mg/dL Iron 3 L (50-170) ug/dL % Saturation 0.80 L (12.00-45.00) Albumin (3.5-5.0) g/dL 01/28/21 01/28/21 Range/Units 07:00 07:00 RBC 3.78 L (3.80-5.40) m/uL Hgb 9.9 L (11.4-16.0) gm/dL Hct 28.7 L (34.0-46.0) % MCV 75.9 L (80.0-100.0) fL RDW 17.1 H (11.5-15.5) % Lymphocytes # 0.7 L (1.0-4.8) k/uL Chloride 110 H (98-107) mmol/L Creatinine 0.44 L (0.52-1.04) mg/dL Glucose 192 H (74-99) mg/dL POC Glucose (mg/dL) (75-99) mg/dL Plasma Lactic Acid Willie (0.7-2.0) mmol/L Calcium 8.3 L (8.4-10.2) mg/dL Phosphorus 2.3 L (2.5-4.5) mg/dL Iron (50-170) ug/dL % Saturation (12.00-45.00) Albumin 2.9 L (3.5-5.0) g/dL Microbiology - Last 24 Hours (Table) 01/27/21 11:00 Gram Stain - Preliminary Other - Other Wound Culture - Preliminary 01/27/21 11:00 Gram Stain - Preliminary Other - Other Wound Culture - Preliminary 01/26/21 16:50 Blood Culture - Preliminary Blood No Growth after 24 hours 01/26/21 16:50 Blood Culture - Preliminary Blood No Growth after 24 hours 01/27/21 11:00 Anaerobic Culture - Preliminary Cervix 01/27/21 11:00 Anaerobic Culture - Preliminary Cervix Assessment and Plan Assessment: 1. 36 yo female with C5-6 osteodiscitis with severe kyphotic deformity, severe stenosis and progressive myelopathy POD2 C5 and C6 corpectomy with arthrodesis C4-7. 2. s/p ORIF femur with revision and infection 3. IVDA 4. Complex medical patient Plan: -Appreciate corporate consultant and team management. -Activity: Ambulate QID, OOB all meals, up and about, limit lifting bending twisting to less than 5 lbs. Use walker or cane if needed for stability. -Daily PT/OT, increase ambulation strength and balance. -Rigid cervical collar at all times -Pain control: Adequate at this time -Meds: reviewed -GI ppx: senna, Miralax -DC garcia when up and about, bedside commode if needed -DVT PPX: OK to restart Heparin tonight -Hygiene: Maintain proper hygiene, may shower as long as she has help. -Drains: Maintain for now. Record output -Encourage IS 10x/hr -Plan for OR 01/30/2021 for posterior cervical decompression and fusion to complete decompression and stabilization. -Dispo: Pending
[2021-01-28 11:38] LABS: Glucose,Whole Blood 171 mg/dL (75-99)
--- NOTE | 2021-01-28 11:47 | P.PN ---
Subjective Progress Note Date: 01/28/21 Principal diagnosis: Status post anterior cervical fusion, C5 to C6 corpectomy and C4 C7 stabilization postoperative day #1. This is a 36-year-old white female patient of Dr. Sarmiento with past medical history of polysubstance abuse, who presented to the emergency department on per EMS due to complaints of neck pain, , And bilateral arm weakness. Patient reports sustaining a fall and sustaining a fracture of the right femur in May 2020. The fracture was later deemed to be pathological due to possible osteomyelitis and patient for some reason did not receive IV antibiotics. She was subsequently seen at multiple facilities at multiple times in most recently she has been trying to undergo an outpatient MRI due to gradually worsening neck pain and arm weakness for the past several weeks. She was recently seen at [facility] [place] approximately a week ago and was scheduled to undergo an MRI but left AGAINST MEDICAL ADVICE. Over last week she reports gradually worsening neck pain along with weakness of her bilateral arms and legs which has acutely worsened over the past weekend and she called 911 and was brought into the emergency department. Patient had a cervical/thoracic/lumbar spine MRI with and without contrast showing multiple fractures of the cervical spine including C5 and C6, discitis and paravertebral abscess of the cervical spine level, severe spinal stenosis, and cervical spinal cord edema. Brain CT revealed possible mastoiditis. Patient was seen by orthopedic surgery in consultation, and surgical intervention was recommended. In the meantime patient was placed in the intensive care unit for closer monitoring, she was started on IV Decadron, and antibiotics in the form of cefepime and vancomycin. She was given oral and IV narcotics for pain relief. On 01/27/2021 she underwent anterior cervical C5-C6 corpectomy, and C4 -C7 stabilization cervical deformity and myelopathy by Dr. Rogers. Seen the patient in the postoperative period in the intensive care unit, she is currently on 3 L of oxygen her pulse ox is 99%, vital signs are stable, she is afebrile. X-ray of the cervical spine following the surgery was completed showing cervical spine hardware traversing the C5-C6 fractures. She continues on antibiotics with cefepime and vancomycin. Remains on Decadron, remains on Neurontin and Flexeril. Patient was reevaluated again today on 01/28/2021, remains in the ICU, patient presented with C5-C6 ostomy discitis and severe cervical deformity with myelopathy. Underwent surgery and today is her postoperative day #2. Patient is noticing significant improvement in her strength and motion of upper and lower extremities bilaterally. She is able to raise her arms, raise her legs, and squeezes hands. Patient tells me that she is feeling much better today and much stronger compared to how she felt on her initial presentation. Patient is complaining of some pain and stiffness in the neck. Overall the patient is stable, and steadily improving. She is doing well with incentive spirometer. And advised to continue to do so. Chest x-ray is relatively unremarkable except for minimal atelectasis. CBC is relatively normal electrolytes are normal renal profile is normal Objective - Vital Signs Vital signs: Vital Signs Temp 98.3 F 01/28/21 08:00 Pulse 86 01/28/21 11:00 Resp 13 01/28/21 11:00 BP 119/79 01/28/21 11:00 Pulse Ox 96 01/28/21 11:00 Intake & Output 01/27/21 01/28/21 01/28/21 18:59 06:59 18:59 Intake Total 2351 1100 500 Output Total 1730 670 675 Balance 621 430 -175 Weight 96.4 kg Intake: IV 1751 1100 500 Lactated Ringers 1,000 ml 600 1100 500 @ 100 mls/hr IV .Q10H [facility] Rx#:[id number] Intake, IV Titration 600 Amount Cefepime 2 gm In Sodium 100 Chloride 0.9% 100 ml @ 25 mls/hr IVPB Q8H [facility] Rx#: [id number] Vancomycin 1,500 mg In 250 Sodium Chloride 0.9% 250 ml @ 125 mls/hr IVPB Q8H [facility] Rx#:[id number] methylPREDNISolone SOD 250 SUCC 2,000 mg In Sodium Chloride 0.9% 250 ml @ 62 .5 mls/hr IVPB Q4H [facility] Rx #:[id number] Output: Urine 1580 670 675 Estimated Blood Loss 150 Other: Voiding Method Indwelling Catheter Indwelling Catheter Indwelling Catheter ABP, PAP, CO, CI - Last Documented Arterial Blood Pressure 126/67 - Exam GENERAL EXAM: Revealed 56-year-old female in no distress. HEAD: Normocephalic/atraumatic. EENT: PERRLA, EOMI, nonicteric, dry mucous membranes. NECK:Right neck surgical incisions covered with a surgical dressing, there is a wound drain in the right neck, with minimal serosanguineous output CHEST: Symmetrical chest expansion. LUNGS: Diminished breath sounds at the bases no crackles or rhonchi or wheezes CVS: Normal S1 and S2, no S3 gallop. ABDOMEN: Nontender no megaly no rebound no guarding EXTREMITIES: No clubbing edema or cyanosis. MUSCULOSKELETAL: No deformities. Generally weak, strength in upper and lower extremities is 3/5. SKIN: No rashes, patient has multiple areas of need fisher and small scabs on her hands, no open areas no open wounds CENTRAL NERVOUS SYSTEM: Alert and oriented 3, no gross focal neurologic deficit. - Labs CBC & Chem 7: 01/28/21 07:00 01/28/21 07:00 Labs: Abnormal Lab Results - Last 24 Hours (Table) 01/27/21 01/27/21 01/27/21 Range/Units 05:00 16:28 23:44 RBC (3.80-5.40) m/uL Hgb (11.4-16.0) gm/dL Hct (34.0-46.0) % MCV (80.0-100.0) fL RDW (11.5-15.5) % Lymphocytes # (1.0-4.8) k/uL Chloride (98-107) mmol/L Creatinine (0.52-1.04) mg/dL Glucose (74-99) mg/dL POC Glucose (mg/dL) 161 H (75-99) mg/dL Plasma Lactic Acid Willie <0.5 L (0.7-2.0) mmol/L Calcium (8.4-10.2) mg/dL Phosphorus (2.5-4.5) mg/dL Iron 3 L (50-170) ug/dL % Saturation 0.80 L (12.00-45.00) Albumin (3.5-5.0) g/dL 01/28/21 01/28/21 Range/Units 07:00 07:00 RBC 3.78 L (3.80-5.40) m/uL Hgb 9.9 L (11.4-16.0) gm/dL Hct 28.7 L (34.0-46.0) % MCV 75.9 L (80.0-100.0) fL RDW 17.1 H (11.5-15.5) % Lymphocytes # 0.7 L (1.0-4.8) k/uL Chloride 110 H (98-107) mmol/L Creatinine 0.44 L (0.52-1.04) mg/dL Glucose 192 H (74-99) mg/dL POC Glucose (mg/dL) (75-99) mg/dL Plasma Lactic Acid Willie (0.7-2.0) mmol/L Calcium 8.3 L (8.4-10.2) mg/dL Phosphorus 2.3 L (2.5-4.5) mg/dL Iron (50-170) ug/dL % Saturation (12.00-45.00) Albumin 2.9 L (3.5-5.0) g/dL Microbiology - Last 24 Hours (Table) 01/27/21 11:00 Gram Stain - Preliminary Other - Other Wound Culture - Preliminary Presumptive Staph aureus 01/27/21 11:00 Gram Stain - Preliminary Other - Other Wound Culture - Preliminary 01/26/21 16:50 Blood Culture - Preliminary Blood No Growth after 24 hours 01/26/21 16:50 Blood Culture - Preliminary Blood No Growth after 24 hours 01/27/21 11:00 Anaerobic Culture - Preliminary Cervix 01/27/21 11:00 Anaerobic Culture - Preliminary Cervix Assessment and Plan Assessment: Impression: Postoperative day #2, C5 and C6 corpectomy and arthrodesis of C4-7 Acute progressive myelopathy secondary to C5-C6 osteo discitis and severe kyphotic deformity with severe stenosis History of IV drug abuse. History of ORIF femur and revision with infection. Recommendation: Continue present supportive care measures. Continue antibiotics. Patient is scheduled to undergo posterior cervical decompression and fusion to complete decompression and stabilization on 01/30. Continue incentive spirometer. Continue close neurological checks and follow-up in ICU. Continue Decadron. Continue pain control. Will follow Time with Patient: Less than 30
[2021-01-28] MEDS ORDERED: VANCOMYCIN TROUGH DUE 1 EACH MISC MISCELLANE ONE (13:00)
[2021-01-28] MEDS ORDERED: VANCOMYCIN 1,500 MG in SODIUM CHLORIDE 0.9% 250 ML IVPB SCH (14:00)
[2021-01-28 17:35] LABS: Glucose,Whole Blood 200 mg/dL (75-99)
[2021-01-28] MEDS: CYCLOBENZAPRINE 10 MG TAB PO PRN (17:51)
[2021-01-29] MEDS: DEXAMETHASONE SOD PHOSPHATE 10 MG/ML 1 ML VIAL IV SCH ×2 (00:11→04:18)
[2021-01-29] MEDS: VANCOMYCIN 1,500 MG in SODIUM CHLORIDE 0.9% 250 ML IVPB SCH ×3 (02:14→19:13)
[2021-01-29] MEDS: CEFEPIME 2 GM in SODIUM CHLORIDE 0.9% 100 ML IVPB SCH ×3 (04:18→20:16)
[2021-01-29 04:25] LABS: Anisocytosis Slight; Basophils % (A) 0 %; Eosinophils % (A) 0 %; HCT 25.8 % (34.0-46.0); HGB 8.8 gm/dL (11.4-16.0); Lymphocytes # (A) 0.7 k/uL (1.0-4.8); Lymphocytes % (A) 11 %; MCH 25.9 pg (25.0-35.0); MCV 76.3 fL (80.0-100.0); Mean Platelet Volume 8.9; Microcytosis Slight; Monocytes # (A) 0.2 k/uL (0-1.0); Monocytes % (A) 4 %; Neutrophils # (A) 5.5 k/uL (1.3-7.7); Neutrophils % (A) 84 %; Platelet Count 204 k/uL (150-450); RBC 3.38 m/uL (3.80-5.40); RDW 17.3 % (11.5-15.5); WBC 6.5 k/uL (3.8-10.6)
[2021-01-29 04:38] LABS: ALT 12 U/L (4-34); AST 15 U/L (14-36); African American GFR (CKD) >90 (>60 ml/min/1.73 sqM); Albumin 2.6 g/dL (3.5-5.0); Alkaline Phosphatase 69 U/L (38-126); Anion Gap 2 mmol/L; Blood Urea Nitrogen 14 mg/dL (7-17); Calcium 8.6 mg/dL (8.4-10.2); Carbon Dioxide 28 mmol/L (22-30); Chloride 110 mmol/L (98-107); Glucose 139 mg/dL (74-99); Magnesium 1.7 mg/dL (1.6-2.3); Non-African American GFR(CKD) >90 (>60 ml/min/1.73 sqM); Potassium 3.2 mmol/L (3.5-5.1); Sodium 140 mmol/L (137-145); Total Bilirubin 0.3 mg/dL (0.2-1.3); Total Protein 5.7 g/dL (6.3-8.2)
[2021-01-29] MEDS ORDERED: Potassium Replacement Protocol 1 EACH MISC MISCELLANE PRN (04:47)
[2021-01-29] MEDS ORDERED: Magnesium Replacement Protocol 1 EACH MISC MISCELLANE PRN (04:48)
--- NOTE | 2021-01-29 04:58 | PN ---
PROGRESS NOTE DATE OF SERVICE: 01/28/2021. REASON FOR FOLLOWUP: Cervical paraspinal abscess. INTERVAL HISTORY: Patient is afebrile. The patient is hemodynamically stable. The patient is breathing comfortably on room air. Back pain is currently controlled with pain medication. Denies any chest pain, shortness of breath. Occasional cough. No abdominal pain or diarrhea. PHYSICAL EXAMINATION: Blood pressure 119/75, pulse of 99, temperature 98.7, she is 95% on room air. General description is a middle-aged female lying in bed in no distress. Respiratory system: Unlabored breathing, decreased breath sounds at bases. No wheeze. Heart: S1, S2. Regular rate and rhythm. Abdomen: Soft, no tenderness. LABS: Hemoglobin 9.9, white count 6.6, BUN of 15, creatinine 0.44, Vanco trough is 14.7. Culture with presumptive Staph aureus. DIAGNOSTIC IMPRESSION AND PLAN: Patient with cellulitis, paraspinal abscess, status post extensive surgery, drainage of the abscess and cervical spine. Culture showing Staph aureus, possibly MRSA. Patient is covered with vancomycin to continue adjusting antibiotic further based on culture report. Continue supportive care. MMODL / IJN: [id number] / MTDD
[2021-01-29] MEDS: HYDROcodone/APAP 5-325MG 1 EACH TAB PO PRN ×3 (05:08→18:29)
[2021-01-29] MEDS: POTASSIUM CHLORIDE 20 MEQ in WATER FOR INJECTION 1 100ML.BAG IVPB SCH ×2 (05:09→06:53)
[2021-01-29] MEDS: LACTATED RINGERS 1,000 ML IV SCH ×2 (05:09→16:43)
[2021-01-29 06:12] LABS: Glucose,Whole Blood 154 mg/dL (75-99)
[2021-01-29] MEDS: INSULIN ASPART (NovoLOG) 100 UNIT/ML VIAL SQ SCH ×4 (06:12→20:17)
--- NOTE | 2021-01-29 07:59 | P.PN ---
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 She is doing well. States minimal pain currently. States her arms and legs are moving much better. Still has difficulty with fine motor movements. Has not been up yet. Sat up with help of bed yesterday but not on her own. She would like to have some more food as she is hungry. She is having no difficulty with swallowing at this time just some pain. Denies any f/c/sob/cp at this time. Objective - Vital Signs Vital signs: Vital Signs Temp 97.7 F 01/29/21 04:00 Pulse 65 01/29/21 07:00 Resp 20 01/29/21 07:00 BP 108/68 01/29/21 07:00 Pulse Ox 94 L 01/29/21 07:00 Intake & Output 01/28/21 01/29/21 01/29/21 18:59 06:59 18:59 Intake Total 1200 1992 Output Total 1800 1650 Balance -600 343 Weight 91.4 kg Intake: IV 1200 1933 A line flush 33 Cefepime 2 gm In Sodium 200 Chloride 0.9% 100 ml @ 25 mls/hr IVPB Q8H [facility] Rx#: [id number] Lactated Ringers 1,000 ml 1200 1200 @ 100 mls/hr IV .Q10H [facility] Rx#:[id number] Vancomycin 1,500 mg In 500 Sodium Chloride 0.9% 250 ml @ 125 mls/hr IVPB Q8H [facility] Rx#:[id number] Oral 60 Output: Urine 1800 1650 Other: Voiding Method Indwelling Catheter Indwelling Catheter # Bowel Movements 1 ABP, PAP, CO, CI - Last Documented Arterial Blood Pressure 135/68 - Exam Exam is repeated today. Her diadiokinesis is much better today although still sluggish it is improving. Her long tract signs are still improving as well. She has better and more motion in her legs and in her arms. She still currently has a garcia but will need one for her stage II tomorrow anyway. She is passing gas, no Bm yet. PHYSICAL EXAMINATION: Vitals: Stable General: Awake, alert, appropriate for age, in no acute distress. HEENT: No unusual neck masses around region of lateral neck triangle, thyroid, supraclavicular groove. [Heart: Regular rate and rhythm, normal S1, S2 and no murmur/gallop.] [Lungs: Clear to auscultation bilaterally with no use of accessory muscles.] Extremities: Skin warm and dry without no acute lesions, coloration, temperature, skin intact, no tenderness or erythema. Integument: Hairy patches: Absent Dorsal skin dimples: Absent Cafe au lait spots: Absent Surgical incisions: CDI anterior neck in cision. Drain in place and has about 25 cc out serosanguinous. Palpation: Please see Pain drawing on Intake sheet for further detail. (Tenderness = T, Nontender = NT, Swelling = S, Ecchymosis = E) Findings on Midline and paraspinal palpation and percussion: Cervical: tennis palpation posteriorly with deformity home noted anterior tenderness due to incision. No flucctuence no large masses. Thoracic: NT Lumbar: NT Sacral: NT Special findings: None VASCULAR STATUS : Wrist Pulses: [2/4 bilateral radial and ulnar] Pedal Pulses: [2/4 bilateral DP and PT] Color: [Normal] Edema: [None] NEUROLOGIC EXAMINATION: Mental Status: Awake and alert, fully oriented, with normal attention, concentration and memory, and fluent, appropriate speech. Cranial Nerves: I: Olfactory not tested. II: Visual acuity normal, no visual field deficit noted with confrontation. III,IV: Normal pupillary reflexes & intact extraocular movements without nystagmus. V,: Intact symmetrical facial sensation. VII: Intact symmetrical facial motor movement VIII: Hearing intact. IX,X: Intact gag, swallow, & normal voice. XI: Sternocleidomastoid, trapezius function intact. XII: Tongue midline with normal movements. Special Tests: L'hermitte's Sign: Absent Spurling'Sign: Absent Bilateral Cubital percussion test: Absent Bilateral Braden-Tinel sign - Carpal region: Absent Bilateral Straight Leg Raising: Absent Bilateral Motor Exam (0-5/5, N/T) STRENGTH UPPER EXTREMITY Shoulder Abd (Not part of JIMI Motor score): RIGHT 3 LEFT 3 Elbow Flexors: RIGHT 3 LEFT 3 Elbow Extensor: RIGHT3 LEFT 3 Wrrist Dorsiflexors: RIGHT 3 LEFT3 Finger Abductor: RIGHT 3 LEFT 3 Financial Foundations Representative: RIGHT 3 LEFT 3 LOWER EXTREMITY Hip Flexor (Not part of JIMI Motor Score): RIGHT 3 LEFT3 Knee Flexor: RIGHT 3 LEFT 3 Knee Extensor: [id number] Ankle Dorsiflexion: RIGHT 3 LEFT 3 Ankle Plantarflexion: RIGHT3 LEFT 3 EHL: RIGHT 3 LEFT 3 FHL: RIGHT 3LEFT 3 While specific strength testing shows antigravity, she is improving quite a bit in her strength and will likely progress. She is showing some 4-/5 strengths in arms and her hands are moving much better. She does have soreness and some pain still. REFLEXES Biecp: RIGHT [3] LEFT [3] Tricep: RIGHT 3 LEFT3 Brachioradialis: RIGHT 3 LEFT3 Patellar: RIGHT 3 LEFT 3 Achilles: RIGHT 3 LEFT3 Improving and not as brisk Pathological Reflexes Villafuerte's: RIGHT Present LEFT Present Improving and not as brisk Babinski: RIGHT [Absent] LEFT [Absent] Clonus: RIGHT Sustained LEFT Sustained still has clonus b/l, RLE no longer sustained about 12 beats, left still sustained but less brisk SENSORY Joint Position: [Intact bilaterally] Vibration Unable to feel Pain and LT sense [Intact C5-T1 and L2-S1] but dulled in all levels Dermatomal deficit: Improving in all ext Gait and Functional Evaluation: Ambulatory aids: Bed bound currently Hand and finger dexterity Not intact bilaterally but improving. Disdiadochokinesis examination Pos bilaterally; but improving - Labs CBC & Chem 7: 01/29/21 04:06 01/29/21 04:06 Labs: Abnormal Lab Results - Last 24 Hours (Table) 01/27/21 01/28/21 01/28/21 Range/Units 05:00 07:00 11:37 RBC (3.80-5.40) m/uL Hgb (11.4-16.0) gm/dL Hct (34.0-46.0) % MCV (80.0-100.0) fL RDW (11.5-15.5) % Lymphocytes # (1.0-4.8) k/uL Potassium (3.5-5.1) mmol/L Chloride 110 H (98-107) mmol/L Creatinine 0.44 L (0.52-1.04) mg/dL Glucose 192 H (74-99) mg/dL POC Glucose (mg/dL) 171 H (75-99) mg/dL Calcium 8.3 L (8.4-10.2) mg/dL Phosphorus 2.3 L (2.5-4.5) mg/dL Total Protein (6.3-8.2) g/dL Albumin 2.9 L (3.5-5.0) g/dL RBC Folate 872 H (280 - 791) ng/mL 01/28/21 01/29/21 01/29/21 Range/Units 17:34 04:06 04:06 RBC 3.38 L (3.80-5.40) m/uL Hgb 8.8 L (11.4-16.0) gm/dL Hct 25.8 L (34.0-46.0) % MCV 76.3 L (80.0-100.0) fL RDW 17.3 H (11.5-15.5) % Lymphocytes # 0.7 L (1.0-4.8) k/uL Potassium 3.2 L (3.5-5.1) mmol/L Chloride 110 H (98-107) mmol/L Creatinine 0.41 L (0.52-1.04) mg/dL Glucose 139 H (74-99) mg/dL POC Glucose (mg/dL) 200 H (75-99) mg/dL Calcium (8.4-10.2) mg/dL Phosphorus (2.5-4.5) mg/dL Total Protein 5.7 L (6.3-8.2) g/dL Albumin 2.6 L (3.5-5.0) g/dL RBC Folate (280 - 791) ng/mL 01/29/21 Range/Units 06:10 RBC (3.80-5.40) m/uL Hgb (11.4-16.0) gm/dL Hct (34.0-46.0) % MCV (80.0-100.0) fL RDW (11.5-15.5) % Lymphocytes # (1.0-4.8) k/uL Potassium (3.5-5.1) mmol/L Chloride (98-107) mmol/L Creatinine (0.52-1.04) mg/dL Glucose (74-99) mg/dL POC Glucose (mg/dL) 154 H (75-99) mg/dL Calcium (8.4-10.2) mg/dL Phosphorus (2.5-4.5) mg/dL Total Protein (6.3-8.2) g/dL Albumin (3.5-5.0) g/dL RBC Folate (280 - 791) ng/mL Microbiology - Last 24 Hours (Table) 01/26/21 16:50 Blood Culture - Preliminary Blood No Growth after 48 hours 01/26/21 16:50 Blood Culture - Preliminary Blood No Growth after 48 hours 01/27/21 11:00 Gram Stain - Preliminary Other - Other Wound Culture - Preliminary Presumptive Staph aureus Assessment and Plan Assessment: 1. 36 yo female with C5-6 osteodiscitis with severe kyphotic deformity, severe stenosis and progressive myelopathy POD3 C5 and C6 corpectomy with arthrodesis C4-7. 2. s/p ORIF femur with revision and infection 3. IVDA 4. Complex medical patient Plan: -Appreciate project consultant and team management. -Activity: Ambulate QID, OOB all meals, up and about, limit lifting bending twisting to less than 5 lbs. Use walker or cane if needed for stability. -Daily PT/OT, increase ambulation strength and balance. -Rigid cervical collar at all times -Work on getting up today at bedside -Pain control: Adequate at this time -Meds: reviewed -GI ppx: senna, Miralax -maintain garcia for now, will need for tomorrow stage II -DVT PPX: OK to restart Heparin tonight -Hygiene: Maintain proper hygiene, may shower as long as she has help. -Drains: Maintain for now. Record output -Encourage IS 10x/hr -Plan for OR 01/30/2021 for posterior cervical decompression and fusion to complete decompression and stabilization. -Dispo: Pending
[2021-01-29] MEDS: PANTOPRAZOLE 40 MG/10 ML VIAL IVP SCH (08:30)
[2021-01-29] MEDS: DEXAMETHASONE SOD PHOSPHATE 4 MG/ML 1 ML VIAL IV SCH ×5 (08:31→23:14)
[2021-01-29] MEDS: GABAPENTIN 300 MG CAP PO SCH ×3 (08:31→20:16)
[2021-01-29] MEDS: CYCLOBENZAPRINE 10 MG TAB PO PRN (08:46)
[2021-01-29] MEDS: MAGNESIUM SULFATE-D5W PMX 1 GM in DEXTROSE/WATER 1 100ML.BAG IVPB SCH ×2 (08:46→09:47)
[2021-01-29 12:01] LABS: Glucose,Whole Blood 149 mg/dL (75-99)
--- NOTE | 2021-01-29 12:06 | P.PN ---
Subjective Progress Note Date: 01/29/21 Principal diagnosis: Status post anterior cervical fusion, C5 to C6 corpectomy and C4 C7 stabilization postoperative day #2 This is a 36-year-old white female patient of Dr. Sarmiento with past medical history of polysubstance abuse, who presented to the emergency department on per EMS due to complaints of neck pain, , And bilateral arm weakness. Patient reports sustaining a fall and sustaining a fracture of the right femur in May 2020. The fracture was later deemed to be pathological due to possible osteomyelitis and patient for some reason did not receive IV antibiotics. She was subsequently seen at multiple facilities at multiple times in most recently she has been trying to undergo an outpatient MRI due to gradually worsening neck pain and arm weakness for the past several weeks. She was recently seen at [facility] approximately a week ago and was scheduled to undergo an MRI but left AGAINST MEDICAL ADVICE. Over last week she reports gradually worsening neck pain along with weakness of her bilateral arms and legs which has acutely worsened over the past weekend and she called 911 and was brought into the emergency department. Patient had a cervical/thoracic/lumbar spine MRI with and without contrast showing multiple fractures of the cervical spine including C5 and C6, discitis and paravertebral abscess of the cervical spine level, severe spinal stenosis, and cervical spinal cord edema. Brain CT revealed possible mastoiditis. Patient was seen by orthopedic surgery in consultation, and surgical intervention was recommended. In the meantime patient was placed in the intensive care unit for closer monitoring, she was started on IV Decadron, and antibiotics in the form of cefepime and vancomycin. She was given oral and IV narcotics for pain relief. On 01/27/2021 she underwent anterior cervical C5-C6 corpectomy, and C4 -C7 stabilization cervical deformity and myelopathy by Dr. Rogers. Seen the patient in the postoperative period in the intensive care unit, she is currently on 3 L of oxygen her pulse ox is 99%, vital signs are stable, she is afebrile. X-ray of the cervical spine following the surgery was completed showing cervical spine hardware traversing the C5-C6 fractures. She continues on antibiotics with cefepime and vancomycin. Remains on Decadron, remains on Neurontin and Flexeril. Patient was reevaluated again today on 01/28/2021, remains in the ICU, patient presented with C5-C6 ostomy discitis and severe cervical deformity with myelopathy. Underwent surgery and today is her postoperative day #2. Patient is noticing significant improvement in her strength and motion of upper and lower extremities bilaterally. She is able to raise her arms, raise her legs, and squeezes hands. Patient tells me that she is feeling much better today and much stronger compared to how she felt on her initial presentation. Patient is complaining of some pain and stiffness in the neck. Overall the patient is stable, and steadily improving. She is doing well with incentive spirometer. And advised to continue to do so. Chest x-ray is relatively unremarkable except for minimal atelectasis. CBC is relatively normal electrolytes are normal renal profile is normal Reevaluated today on 01/29/2021, patient remains in the ICU, she is postoperative day #2 patient had spinal surgery as noted above. She is on room air O2 sats is 96%. Patient has IV fluid at 100 mL/h, doing great with incentive spirometry. No major issues over the last 24 hours, strength is getting better in upper and lower extremities. Patient is scheduled for surgery again phase II. Objective - Vital Signs Vital signs: Vital Signs Temp 98.3 F 01/29/21 08:00 Pulse 82 01/29/21 11:00 Resp 19 01/29/21 11:00 BP 116/73 01/29/21 11:00 Pulse Ox 97 01/29/21 11:00 Intake & Output 01/28/21 01/29/21 01/29/21 18:59 06:59 18:59 Intake Total 1200 1993 740 Output Total 1800 1650 575 Balance -600 343 165 Weight 91.4 kg Intake: IV 1200 1933 540 A line flush 33 15 Cefepime 2 gm In Sodium 200 Chloride 0.9% 100 ml @ 25 mls/hr IVPB Q8H [facility] Rx#: [id number] Lactated Ringers 1,000 ml 1200 1200 400 @ 100 mls/hr IV .Q10H [facility] Rx#:[id number] Vancomycin 1,500 mg In 500 125 Sodium Chloride 0.9% 250 ml @ 125 mls/hr IVPB Q8H [facility] Rx#:[id number] Intake, IV Titration 200 Amount Magnesium Sulfate-D5w Pmx 200 1 gm In Dextrose/Water 1 100ml.bag @ 100 mls/hr IVPB Q1H [facility] Rx#: [id number] Oral 60 Output: Urine 1800 1650 575 Other: Voiding Method Indwelling Catheter Indwelling Catheter Indwelling Catheter # Bowel Movements 1 ABP, PAP, CO, CI - Last Documented Arterial Blood Pressure 135/68 - Exam GENERAL EXAM: Revealed 36-year-old female in no distress. On room air HEAD: Normocephalic/atraumatic. EENT: PERRLA, EOMI, nonicteric, moist mucous membranes NECK:Right neck surgical incisions covered with a surgical dressing, CHEST: Symmetrical chest expansion. LUNGS: Clear throughout no crackles or rhonchi or wheezes CVS: Normal S1 and S2, no S3 gallop. ABDOMEN: Nontender no megaly no rebound no guarding EXTREMITIES: No clubbing edema or cyanosis. MUSCULOSKELETAL: No deformities. Strength seems to be 4/5 bilaterally SKIN: No rashes, patient has multiple areas of need fisher and small scabs on her hands, no open areas no open wounds CENTRAL NERVOUS SYSTEM: Alert and oriented 3, no gross focal neurologic deficit. - Labs CBC & Chem 7: 01/29/21 04:06 01/29/21 04:06 Labs: Abnormal Lab Results - Last 24 Hours (Table) 01/28/21 01/29/21 01/29/21 Range/Units 17:34 04:06 04:06 RBC 3.38 L (3.80-5.40) m/uL Hgb 8.8 L (11.4-16.0) gm/dL Hct 25.8 L (34.0-46.0) % MCV 76.3 L (80.0-100.0) fL RDW 17.3 H (11.5-15.5) % Lymphocytes # 0.7 L (1.0-4.8) k/uL Potassium 3.2 L (3.5-5.1) mmol/L Chloride 110 H (98-107) mmol/L Creatinine 0.41 L (0.52-1.04) mg/dL Glucose 139 H (74-99) mg/dL POC Glucose (mg/dL) 200 H (75-99) mg/dL Total Protein 5.7 L (6.3-8.2) g/dL Albumin 2.6 L (3.5-5.0) g/dL 01/29/21 01/29/21 Range/Units 06:10 11:59 RBC (3.80-5.40) m/uL Hgb (11.4-16.0) gm/dL Hct (34.0-46.0) % MCV (80.0-100.0) fL RDW (11.5-15.5) % Lymphocytes # (1.0-4.8) k/uL Potassium (3.5-5.1) mmol/L Chloride (98-107) mmol/L Creatinine (0.52-1.04) mg/dL Glucose (74-99) mg/dL POC Glucose (mg/dL) 154 H 149 H (75-99) mg/dL Total Protein (6.3-8.2) g/dL Albumin (3.5-5.0) g/dL Microbiology - Last 24 Hours (Table) 01/27/21 11:00 Gram Stain - Final Other - Other Wound Culture - Final Staphylococcus aureus 01/27/21 11:00 Gram Stain - Final Other - Other Wound Culture - Final Staphylococcus aureus 01/26/21 16:50 Blood Culture - Preliminary Blood No Growth after 48 hours 01/26/21 16:50 Blood Culture - Preliminary Blood No Growth after 48 hours Assessment and Plan Assessment: Impression: Postoperative day #2, C5 and C6 corpectomy and arthrodesis of C4-7 Acute progressive myelopathy secondary to C5-C6 osteo discitis and severe kyphotic deformity with severe stenosis History of IV drug abuse. History of ORIF femur and revision with infection. Recommendation: Continue present supportive care measures. Continue antibiotics. Patient is scheduled to undergo posterior cervical decompression and fusion to complete decompression and stabilization on 01/30. Continue incentive spirometer. Continue Decadron. As per Surgery on the case. Continue pain control. Will follow Time with Patient: Less than 30
[2021-01-29] MEDS ORDERED: ONDANSETRON 4 MG/2 ML VIAL IVP ONE (14:16)
[2021-01-29] MEDS ORDERED: DEXAMETHASONE SOD PHOSPHATE 4 MG/ML 1 ML VIAL IV ONE (14:16)
[2021-01-29] MEDS ORDERED: LIDOCAINE 1% (10MG/ML) FOR IV START INTRADERMA PRN (14:16)
[2021-01-29] MEDS ORDERED: LACTATED RINGERS 1,000 ML IV SCH (14:30)
--- NOTE | 2021-01-29 15:03 | PN ---
PROGRESS NOTE CHIEF COMPLAINT: Status post cervical fusion from C4-C7. HISTORY OF PRESENT ILLNESS: This lady seems to be doing fairly well. She is not on . Temperature is down. She is awake, oriented and alert and neurologically, she seems to be intact with no complaints of dysesthesias or weakness in the arms or legs. PHYSICAL EXAMINATION: Vital signs are normal. Chest is clear. Cardiac exam is normal. Abdomen is soft, nontender. IMPRESSION: 1. Status post cervical fusion of C4-C7. 2. Osteomyelitis of the right femur with old pathologic fracture. 3. Substance abuse. PLAN: No change in program and continue to follow with Surgery and Infectious Disease. MMODL / IJN: [id number] /
[2021-01-29 16:43] LABS: Glucose,Whole Blood 131 mg/dL (75-99)
--- NOTE | 2021-01-29 19:06 | PN ---
PROGRESS NOTE DATE OF SERVICE: 01/29/2021 CHIEF COMPLAINT: Status post cervical fusion for unstable diskitis. HISTORY OF PRESENT ILLNESS: This lady is awake and alert, doing well. Vital signs are normal. There has been no bleeding. She apparently going back to the operating room tomorrow for another procedure. PHYSICAL EXAMINATION: She is awake and alert. Color is good. Chest is clear. Cardiac exam is normal. Abdomen is soft, nontender. She seems to have good movement and adequate strength in the upper extremities at this time. IMPRESSION: 1. Status post a C4-C7 cervical fusion. 2. History of drug abuse. PLAN: No change in program at this time and she will go back to the operating room tomorrow. MMODL / IJN: [id number] /
[2021-01-29 19:51] LABS: Glucose,Whole Blood 154 mg/dL (75-99)
--- NOTE | 2021-01-30 00:28 | PN ---
PROGRESS NOTE DATE OF SERVICE: 01/29/2021 REASON FOR FOLLOW UP: Cervical paraspinal abscess. INTERVAL HISTORY: Patient is afebrile. The patient is breathing comfortably. The patient is hemodynamically stable. The patient denies having any chest pain, shortness of breath, cough. Pain to the neck is currently controlled. No vomiting or any diarrhea. PHYSICAL EXAMINATION: Her blood pressure is 119/72 with a pulse of 85, temperature is 98, she is 96% on room air. General description is a middle-aged female lying in bed in no distress. Respiratory system: Unlabored breathing, clear to auscultation anteriorly. Heart S1, S2. Regular rate and rhythm. Abdomen soft, no tenderness. LABS: Culture has been finalized with MSSA. Blood culture has been negative. White count is normal. Creatinine is normal. DIAGNOSTIC IMPRESSION AND PLAN: Patient with paraspinal abscess cervical spine status post extensive surgery. Culture showing MSSA. Antibiotic will be adjusted to cefazolin 2 grams q.8 hours. Discontinue vancomycin, cefepime and monitor clinical course closely. Continue supportive care. MMODL / IJN: [id number] /
[2021-01-30] MEDS: LACTATED RINGERS 1,000 ML IV SCH ×3 (00:53→19:50)
[2021-01-30] MEDS: HYDROcodone/APAP 5-325MG 1 EACH TAB PO PRN ×3 (00:53→20:15)
[2021-01-30] MEDS: DEXAMETHASONE SOD PHOSPHATE 4 MG/ML 1 ML VIAL IV SCH ×4 (04:16→20:25)
[2021-01-30 04:30] LABS: Anisocytosis Slight; Basophils % (A) 0 %; Eosinophils # (A) 0.1 k/uL (0-0.7); Eosinophils % (A) 1 %; Lymphocytes # (A) 0.8 k/uL (1.0-4.8); Lymphocytes % (A) 13 %; MCH 25.5 pg (25.0-35.0); MCHC 33.4 g/dL (31.0-37.0); MCV 76.5 fL (80.0-100.0); Microcytosis Slight; Monocytes # (A) 0.4 k/uL (0-1.0); Monocytes % (A) 6 %; Neutrophils # (A) 4.9 k/uL (1.3-7.7); Neutrophils % (A) 79 %; Platelet Count 220 k/uL (150-450); RBC 3.53 m/uL (3.80-5.40); RDW 17.1 % (11.5-15.5); WBC 6.2 k/uL (3.8-10.6)
[2021-01-30 04:41] LABS: ALT 12 U/L (4-34); AST 14 U/L (14-36); African American GFR (CKD) >90 (>60 ml/min/1.73 sqM); Albumin 2.5 g/dL (3.5-5.0); Alkaline Phosphatase 67 U/L (38-126); Anion Gap 3 mmol/L; Blood Urea Nitrogen 19 mg/dL (7-17); Calcium 8.5 mg/dL (8.4-10.2); Carbon Dioxide 27 mmol/L (22-30); Chloride 109 mmol/L (98-107); Glucose 128 mg/dL (74-99); Magnesium 1.9 mg/dL (1.6-2.3); Non-African American GFR(CKD) >90 (>60 ml/min/1.73 sqM); Potassium 3.8 mmol/L (3.5-5.1); Sodium 139 mmol/L (137-145); Total Bilirubin 0.2 mg/dL (0.2-1.3); Total Protein 5.6 g/dL (6.3-8.2)
[2021-01-30] MEDS ORDERED: POTASSIUM CHLORIDE 20 MEQ in WATER FOR INJECTION 1 100ML.BAG IVPB ONE (04:58)
[2021-01-30] MEDS: INSULIN ASPART (NovoLOG) 100 UNIT/ML VIAL SQ SCH ×3 (05:16→19:51)
[2021-01-30] MEDS ORDERED: DEXAMETHASONE SOD PHOSPHATE 4 MG/ML 1 ML VIAL IV ONE (06:00)
[2021-01-30] MEDS ORDERED: ONDANSETRON 4 MG/2 ML VIAL IVP ONE (06:00)
[2021-01-30] MEDS ORDERED: LIDOCAINE 1% (10MG/ML) FOR IV START INTRADERMA PRN (06:00)
[2021-01-30] MEDS: MAGNESIUM SULFATE-D5W PMX 1 GM in DEXTROSE/WATER 1 100ML.BAG IVPB SCH ×2 (08:32→10:24)
[2021-01-30] MEDS: PANTOPRAZOLE 40 MG/10 ML VIAL IVP SCH (09:04)
[2021-01-30] MEDS: GABAPENTIN 300 MG CAP PO SCH ×2 (09:05→22:00)
[2021-01-30] MEDS ORDERED: VANCOMYCIN TROUGH DUE 1 EACH MISC MISCELLANE ONE (10:00)
--- NOTE | 2021-01-30 11:11 | P.PN ---
Subjective Progress Note Date: 01/30/21 Principal diagnosis: Status post anterior cervical fusion, C5 to C6 corpectomy and C4 C7 stabilization postoperative day #3 This is a 36-year-old white female patient of Dr. Sarmiento with past medical history of polysubstance abuse, who presented to the emergency department on per EMS due to complaints of neck pain, , And bilateral arm weakness. Patient reports sustaining a fall and sustaining a fracture of the right femur in May 2020. The fracture was later deemed to be pathological due to possible osteomyelitis and patient for some reason did not receive IV antibiotics. She was subsequently seen at multiple facilities at multiple times in most recently she has been trying to undergo an outpatient MRI due to gradually worsening neck pain and arm weakness for the past several weeks. She was recently seen at [facility] approximately a week ago and was scheduled to undergo an MRI but left AGAINST MEDICAL ADVICE. Over last week she reports gradually worsening neck pain along with weakness of her bilateral arms and legs which has acutely worsened over the past weekend and she called 911 and was brought into the emergency department. Patient had a cervical/thoracic/lumbar spine MRI with and without contrast showing multiple fractures of the cervical spine including C5 and C6, discitis and paravertebral abscess of the cervical spine level, severe spinal stenosis, and cervical spinal cord edema. Brain CT revealed possible mastoiditis. Patient was seen by orthopedic surgery in consultation, and surgical intervention was recommended. In the meantime patient was placed in the intensive care unit for closer monitoring, she was started on IV Decadron, and antibiotics in the form of cefepime and vancomycin. She was given oral and IV narcotics for pain relief. On 01/27/2021 she underwent anterior cervical C5-C6 corpectomy, and C4 -C7 stabilization cervical deformity and myelopathy by Dr. Rogers. Seen the patient in the postoperative period in the intensive care unit, she is currently on 3 L of oxygen her pulse ox is 99%, vital signs are stable, she is afebrile. X-ray of the cervical spine following the surgery was completed showing cervical spine hardware traversing the C5-C6 fractures. She continues on antibiotics with cefepime and vancomycin. Remains on Decadron, remains on Neurontin and Flexeril. Patient was reevaluated again today on 01/28/2021, remains in the ICU, patient presented with C5-C6 ostomy discitis and severe cervical deformity with myelopathy. Underwent surgery and today is her postoperative day #2. Patient is noticing significant improvement in her strength and motion of upper and lower extremities bilaterally. She is able to raise her arms, raise her legs, and squeezes hands. Patient tells me that she is feeling much better today and much stronger compared to how she felt on her initial presentation. Patient is complaining of some pain and stiffness in the neck. Overall the patient is stable, and steadily improving. She is doing well with incentive spirometer. And advised to continue to do so. Chest x-ray is relatively unremarkable except for minimal atelectasis. CBC is relatively normal electrolytes are normal renal profile is normal Reevaluated today on 01/29/2021, patient remains in the ICU, she is postoperative day #2 patient had spinal surgery as noted above. She is on room air O2 sats is 96%. Patient has IV fluid at 100 mL/h, doing great with incentive spirometry. No major issues over the last 24 hours, strength is getting better in upper and lower extremities. Patient is scheduled for surgery again phase II. Patient was reevaluated today on 01/30/2021, remains in the ICU, supposed to have surgery today but apparently may have to be delayed until tomorrow. Patient is on room air, relatively asymptomatic, regaining strength in her upper and lower extremities gradually. Patient has no active symptoms whatsoever. CBC is normal basic metabolic profile is normal renal profile is normal Objective - Vital Signs Vital signs: Vital Signs Temp 97.6 F 01/30/21 08:00 Pulse 60 01/30/21 10:00 Resp 18 01/30/21 10:00 BP 127/79 01/30/21 10:00 Pulse Ox 97 01/30/21 10:00 Intake & Output 01/29/21 01/30/21 01/30/21 18:59 06:59 18:59 Intake Total 1461 2041 612 Output Total 1675 1465 605 Balance -214 576 7 Weight 95.1 kg Intake: IV 1261 1561 612 A line flush 36 36 12 Cefepime 2 gm In Sodium 100 200 100 Chloride 0.9% 100 ml @ 25 mls/hr IVPB Q8H [facility] Rx#: [id number] Lactated Ringers 1,000 ml 1000 1200 300 @ 100 mls/hr IV .Q10H [facility] Rx#:[id number] Magnesium Sulfate-D5w Pmx 200 1 gm In Dextrose/Water 1 100ml.bag @ 100 mls/hr IVPB Q1H [facility] Rx#: [id number] Vancomycin 1,500 mg In 125 125 Sodium Chloride 0.9% 250 ml @ 125 mls/hr IVPB Q8H [facility] Rx#:[id number] Intake, IV Titration 200 Amount Magnesium Sulfate-D5w Pmx 200 1 gm In Dextrose/Water 1 100ml.bag @ 100 mls/hr IVPB Q1H [facility] Rx#: [id number] Oral 480 Output: Urine 1675 1465 605 Other: Voiding Method Indwelling Catheter Indwelling Catheter ABP, PAP, CO, CI - Last Documented Arterial Blood Pressure 135/68 - Exam GENERAL EXAM: Revealed 36-year-old female in no distress. On room air HEAD: Normocephalic/atraumatic. EENT: PERRLA, EOMI, nonicteric, moist mucous membranes NECK:Right neck surgical incisions covered with a surgical dressing, CHEST: Symmetrical chest expansion. LUNGS: Clear throughout no crackles or rhonchi or wheezes CVS: Normal S1 and S2, no S3 gallop. ABDOMEN: Nontender no megaly no rebound no guarding EXTREMITIES: No clubbing edema or cyanosis. MUSCULOSKELETAL: No deformities. Strength seems to be 4/5 bilaterally SKIN: No rashes, patient has multiple areas of need fisher and small scabs on her hands, no open areas no open wounds CENTRAL NERVOUS SYSTEM: Alert and oriented 3, no gross focal neurologic deficit. - Labs CBC & Chem 7: 01/30/21 04:20 01/30/21 04:20 Labs: Abnormal Lab Results - Last 24 Hours (Table) 01/29/21 01/29/21 01/29/21 Range/Units 11:59 16:42 19:49 RBC (3.80-5.40) m/uL Hgb (11.4-16.0) gm/dL Hct (34.0-46.0) % MCV (80.0-100.0) fL RDW (11.5-15.5) % Lymphocytes # (1.0-4.8) k/uL Chloride (98-107) mmol/L BUN (7-17) mg/dL Creatinine (0.52-1.04) mg/dL Glucose (74-99) mg/dL POC Glucose (mg/dL) 149 H 131 H 154 H (75-99) mg/dL Total Protein (6.3-8.2) g/dL Albumin (3.5-5.0) g/dL 01/30/21 01/30/21 Range/Units 04:20 04:20 RBC 3.53 L (3.80-5.40) m/uL Hgb 9.0 L (11.4-16.0) gm/dL Hct 27.0 L (34.0-46.0) % MCV 76.5 L (80.0-100.0) fL RDW 17.1 H (11.5-15.5) % Lymphocytes # 0.8 L (1.0-4.8) k/uL Chloride 109 H (98-107) mmol/L BUN 19 H (7-17) mg/dL Creatinine 0.44 L (0.52-1.04) mg/dL Glucose 128 H (74-99) mg/dL POC Glucose (mg/dL) (75-99) mg/dL Total Protein 5.6 L (6.3-8.2) g/dL Albumin 2.5 L (3.5-5.0) g/dL Microbiology - Last 24 Hours (Table) 01/27/21 11:00 Gram Stain - Final Other - Other Wound Culture - Final Staphylococcus aureus 01/26/21 16:50 Blood Culture - Preliminary Blood No Growth after 72 hours 01/26/21 16:50 Blood Culture - Preliminary Blood No Growth after 72 hours 01/27/21 11:00 Anaerobic Culture - Preliminary Cervix 01/27/21 11:00 Gram Stain - Final Other - Other Wound Culture - Final Staphylococcus aureus Assessment and Plan Assessment: Impression: Postoperative day #3, C5 and C6 corpectomy and arthrodesis of C4-7 Acute progressive myelopathy secondary to C5-C6 osteo discitis and severe kyphotic deformity with severe stenosis History of IV drug abuse. History of ORIF femur and revision with infection. Recommendation: Continue present supportive care measures. Continue antibiotics. Patient is scheduled to undergo posterior cervical decompression and fusion to complete decompression and stabilization on 01/30. Continue incentive spirometer. Continue Decadron. Continue pain control. Will follow Time with Patient: Less than 30
[2021-01-30] MEDS ORDERED: ROCURONIUM 10 MG/ML (5 ML VIAL) IV ONE (14:32)
[2021-01-30] MEDS ORDERED: PROPOFOL 10 MG/ML 20 ML VIAL IV ONE (14:32)
[2021-01-30] MEDS ORDERED: GLYCOPYRROLATE 0.2 MG/ML 2 ML VIAL ONE (14:32)
[2021-01-30] MEDS ORDERED: HYDROmorphone (PF) 1 MG/ML ONE (14:32)
[2021-01-30] MEDS ORDERED: SUCCINYLCHOLINE CHLORIDE 100 MG/5 ML SYR IV ONE (14:32)
[2021-01-30] MEDS ORDERED: NEOSTIGMINE 1 MG/ML 10 ML VIAL ONE (14:32)
[2021-01-30] MEDS ORDERED: SODIUM CHLORIDE 0.9% 100 ML BAG ONE (14:32)
[2021-01-30] MEDS ORDERED: KETAMINE 10 MG/ML 20 ML VIAL ONE (14:32)
[2021-01-30] MEDS ORDERED: LABETALOL 5 MG/ML VIAL MDV ONE (14:32)
[2021-01-30] MEDS ORDERED: LIDOCAINE 1% INJ 10MG/ML (20 ML MDV) ONE (14:32)
[2021-01-30] MEDS ORDERED: IV FLUID CONTINUATION 1,000 ML IV ONE (14:32)
[2021-01-30] MEDS ORDERED: MIDAZOLAM 2 MG/2 ML VIAL ONE (14:32)
[2021-01-30] MEDS ORDERED: fentaNYL (PF) 50 MCG/ML 2 ML AMP ONE (14:32)
[2021-01-30] MEDS ORDERED: TRANEXAMIC ACID 1,000 MG/10 ML VIAL ONE (14:32)
[2021-01-30] MEDS ORDERED: VANCOMYCIN 1,500 MG in SODIUM CHLORIDE 0.9% 250 ML IVPB STA (15:20)
[2021-01-30] MEDS ORDERED: TRANEXAMIC ACID 1,000 MG in SODIUM CHLORIDE 0.9% 100 ML IV STA (15:34)
[2021-01-30] MEDS ORDERED: TRANEXAMIC ACID 1,000 MG in SODIUM CHLORIDE 0.9% 250 ML IV ONE (15:34)
[2021-01-30] MEDS ORDERED: VANCOMYCIN 1,000 MG VIAL MISCELLANE ONE (16:07)
[2021-01-30] MEDS ORDERED: ceFAZolin 3,000 MG in SODIUM CHLORIDE 0.9% IRRIGATIO 3,000 ML IRRIGATION ONE (16:08)
--- NOTE | 2021-01-30 16:35 | PN ---
PROGRESS NOTE DATE OF SERVICE: 01/30/2021. CHIEF COMPLAINT: Osteomyelitis and cervical spine discitis. HISTORY OF PRESENT ILLNESS: This lady has been stable, doing slightly better. Cultures have come back growing out Staph aureus. She is going back to the operating room today. PHYSICAL EXAMINATION: Her vital signs are normal. She is afebrile. She is awake and alert. She states that her extremity and neurologic issues are improving. Chest is clear. Cardiac exam is normal. Abdomen is soft, nontender. 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 PLAN: Continue to follow with Surgery and Infectious Disease. MMODL / IJN: [id number] /
[2021-01-30] MEDS ORDERED: THROMBIN (BOVINE) 5,000 UNIT VIAL TOPICAL ONE (16:40)
[2021-01-30] MEDS ORDERED: GELATIN SPONGE,ABSORB (LARGE) 1 EACH SPONGE TOPICAL ONE (16:41)
--- NOTE | 2021-01-30 17:08 | PN ---
PROGRESS NOTE DATE OF SERVICE: 01/30/2021 REASON FOR FOLLOWUP: MSSA cervical paraspinal abscess. INTERVAL HISTORY: The patient is afebrile. The patient is breathing comfortably. Overall, pain and discomfort to the neck area is currently controlled. No chest pain, shortness of breath or cough. No abdominal pain or diarrhea. PHYSICAL EXAMINATION: Blood pressure 121/75, pulse of 56, temperature 98.3. She is 94% on room air. General description is a middle-aged female lying in bed in no distress. Respiratory system: Unlabored breathing, clear to auscultation anteriorly. Heart S1, S2. Regular rate and rhythm. Abdomen soft, no tenderness. LABS: Hemoglobin is count 9, white count 6.2, BUN of 19, creatinine 0.44. Blood culture has been negative. DIAGNOSTIC IMPRESSION AND PLAN: Patient with MSSA cervical paraspinal abscess status post extensive surgery. Blood culture has been negative. Patient is covered with cefazolin to continue and monitor clinical course closely. MMODL / IJN: [id number] /
--- NOTE | 2021-01-30 18:15 | XR ---
EXAMINATION TYPE: XR cervical spine limited DATE OF EXAM: 01/30/2021 COMPARISON: NONE HISTORY: Fusion surgery TECHNIQUE: 8 views FINDINGS: Multiple fluoroscopic images were obtained at show placement of rods and screws fusing post eriorly the lumbar spine from C2 to the C7 vertebra. There is plate with screws fusing anteriorly the cervical spine from C4 to C7. IMPRESSION: No complicating process seen.
[2021-01-30] MEDS ORDERED: VANCOMYCIN IV PER PHARMACY 1 EACH MISC MISCELLANE PRN (18:34)
[2021-01-30] MEDS ORDERED: HYDROmorphone 0.5 MG/0.5 ML SYRINGE IVP ONE ×2 (18:40→18:45)
[2021-01-30] MEDS ORDERED: fentaNYL (PF) 50 MCG/ML 2 ML AMP IV ONE (19:05)
[2021-01-30] MEDS: CYCLOBENZAPRINE 10 MG TAB PO PRN (20:15)
[2021-01-30] MEDS: HYDROmorphone 1 MG/ML 1 ML SYRINGE IVP PRN (21:11)
[2021-01-30] MEDS: DIAZEPAM 5 MG/ML 2 ML INJ IVP PRN (22:26)
[2021-01-31 00:18] LABS: Glucose,Whole Blood 99 mg/dL (75-99)
[2021-01-31] MEDS: HYDROmorphone 1 MG/ML 1 ML SYRINGE IVP PRN ×7 (00:24→22:29)
[2021-01-31] MEDS: GABAPENTIN 300 MG CAP PO SCH ×3 (00:44→20:19)
[2021-01-31] MEDS: DEXAMETHASONE SOD PHOSPHATE 4 MG/ML 1 ML VIAL IV SCH ×7 (00:44→20:17)
[2021-01-31] MEDS: INSULIN ASPART (NovoLOG) 100 UNIT/ML VIAL SQ SCH ×6 (00:46→22:57)
[2021-01-31] MEDS: VANCOMYCIN 1,500 MG in SODIUM CHLORIDE 0.9% 250 ML IVPB SCH ×3 (02:10→15:37)
[2021-01-31] MEDS: LACTATED RINGERS 1,000 ML IV SCH ×5 (02:30→22:30)
[2021-01-31] MEDS: DIAZEPAM 5 MG/ML 2 ML INJ IVP PRN ×2 (02:55→07:09)
[2021-01-31 05:42] LABS: African American GFR (CKD) >90 (>60 ml/min/1.73 sqM); Non-African American GFR(CKD) >90 (>60 ml/min/1.73 sqM)
--- NOTE | 2021-01-31 07:40 | FL ---
Fluoroscopy History: POSTERIOR CERVICAL FUSION. POSTERIOR CERVIAL FUSION. 1 MIN 45 SEC FL. 8 IMAGES SAVED UNDER XRAY CHARGE. .
--- NOTE | 2021-01-31 07:50 | CT ---
EXAMINATION TYPE: CT cervical spine wo con DATE OF EXAM: 01/31/2021 COMPARISON: 01/27/2021 HISTORY: s/p C2-T1 decompression fusion. prior on PACS CT DLP: 348.[address] of the cervical spine was performed with bone and soft tissue window settings submitted . Coronal and sagittal reconstruction is obtained. There has been interval posterior stabilizing rods and screws placed extending from C2 through T1. As noted previously there are changes of the decompression and fusion extending from C4 through C7. The appearance is unchanged with anterior fixation plate in place as well as bone graft extending from t he inferior endplate of C4 through the superior endplate of C7. Alignment near is anatomic. Severe st reak artifact from a metallic hardware is noted. This does limit evaluation. Spinal canal appears cap acious at this time. Postsurgical soft tissue changes are noted. Surgical drain is in place posterior ly and towards the left. IMPRESSION: Status post posterior stabilizing rods and screw placement in addition to decompression and fusion. P ostsurgical changes as noted. Near-anatomic alignment as indicated above.
[2021-01-31 07:58] LABS: Anisocytosis Slight; Basophils % (A) 0 %; Eosinophils % (A) 0 %; HCT 31.5 % (34.0-46.0); HGB 10.7 gm/dL (11.4-16.0); Lymphocytes % (A) 9 %; MCH 26.4 pg (25.0-35.0); MCV 77.5 fL (80.0-100.0); Mean Platelet Volume 7.9; Microcytosis Slight; Monocytes # (A) 0.6 k/uL (0-1.0); Monocytes % (A) 5 %; Neutrophils # (A) 9.8 k/uL (1.3-7.7); Neutrophils % (A) 85 %; Platelet Count 272 k/uL (150-450); RBC 4.07 m/uL (3.80-5.40); RDW 17.2 % (11.5-15.5); WBC 11.5 k/uL (3.8-10.6)
[2021-01-31 08:07] LABS: African American GFR (CKD) >90 (>60 ml/min/1.73 sqM); Anion Gap 5 mmol/L; Blood Urea Nitrogen 16 mg/dL (7-17); Calcium 8.6 mg/dL (8.4-10.2); Carbon Dioxide 25 mmol/L (22-30); Chloride 107 mmol/L (98-107); Glucose 157 mg/dL (74-99); Magnesium 1.8 mg/dL (1.6-2.3); Non-African American GFR(CKD) >90 (>60 ml/min/1.73 sqM); Phosphorus 3.6 mg/dL (2.5-4.5); Potassium 4.1 mmol/L (3.5-5.1); Sodium 137 mmol/L (137-145)
[2021-01-31] MEDS: HYDROcodone/APAP 5-325MG 1 EACH TAB PO PRN (08:09)
[2021-01-31] MEDS: CYCLOBENZAPRINE 10 MG TAB PO PRN (08:09)
[2021-01-31] MEDS ORDERED: ONDANSETRON 4 MG/2 ML VIAL IVP PRN (09:19)
[2021-01-31] MEDS: PANTOPRAZOLE 40 MG/10 ML VIAL IVP SCH (09:19)
[2021-01-31] MEDS ORDERED: SENNOSIDES 8.6 MG TAB PO PRN (09:19)
[2021-01-31] MEDS: ACETAMINOPHEN IV (For NPO) 1,000 MG in EMPTY BAG 1 BAG IVPB SCH ×2 (09:50→18:49)
[2021-01-31 09:52] LABS: Glucose,Whole Blood 119 mg/dL (75-99)
--- NOTE | 2021-01-31 10:59 | P.OP ---
Date of Procedure: 01/30/21 Preoperative Diagnosis: 1. C5-6 osteodiscitis with erosion C5 and C6 vertebral bodies s/p Corpectomy C5 and 6 with C4-7 arthrodesis 2. Cervical deformity secondary to #1 with severe kyphotic deformity C5-6 3. Severe cervical myelopathy, borderline SCI secondary to cervical stenosis related to 1 and 2. 4. Anterior spinal phlegmon 5. IVDA 6. hx of R femur fracture with infection s/p fixation Postoperative Diagnosis: 1. C5-6 osteodiscitis with erosion C5 and C6 vertebral bodies s/p Corpectomy C5 and 6 with C4-7 arthrodesis 2. Cervical deformity secondary to #1 with severe kyphotic deformity C5-6 3. Severe cervical myelopathy, borderline SCI secondary to cervical stenosis related to 1 and 2. 4. Anterior spinal phlegmon 5. IVDA 6. hx of R femur fracture with infection s/p fixation Procedure(s) Performed: 1. Posterior C2-T1 posteriolateral instrumented fusion 2. C2-C7 decompressive laminectomy 3. Posterior cervical segmental instrumentation 4. Cervical deformity correction. Implants: [place] Posterior cervical system 2 cross links Anesthesia: GETA Surgeon: Varun Rogers Mobile Service Rv Technician #1: Yobani Cabrera (Was present for the entire case and necessary due to the complexity of the case) Estimated Blood Loss (ml): 250 IV fluids (ml): 2,500 Urine output (ml): 350 Pathology: none sent Condition: stable Disposition: PACU (then ICU for neuro checks and BP monitoring) Indications for Procedure: 36 yo female presented due to inability to ambulate, progressive weakness in UE and LE b/l as well as neck pain. She was evaluated by outside facility and she left AMA. She has a hx of IVDA. She presented then via EMS to [facility] with these complaints. She was worked up with MRI and CT scan which showed erosive osteodiscitis of C5-6 with severe kyphosis, cervical deformtiy and severe cervical stenosis, mylomalacia and myelopathy. On exam pt was myelopathic and her UE and LE were getting weaker so she was admitted and urgent worked up for surgical intervention. She has been doing well since her anterior surgery with recovery of her neurologic function. She is no longer Carole C and has improved to Carole D. Operative Findings: Still unstable C5 6 segments posteriorly as well as cervical thoracic region Description of Procedure: The patient was seen and examined in the preoperative area. All preoperative protocols were followed. Informed consent was obtained risks and benefits of the procedure were discussed at length. Risks including bleeding infection damage to the surrounding tissue and risk of reoperation were discussed with the patient. Risk of anesthesia up to and including was a discussed with the patient. These are outlined in the risk review. They were willing to accept th nuria risks and all of the risks of surgery. The patient was given a weight-based dose of antibiotics in the form of vancomycin weight-based dose. The patient was seen and evaluated by the anesthesia team who deemed them fit for surgery. The site was marked, the patient was willing to proceed with the procedure. The patient was transferred to the operative suite by the Department of anesthesia. They were then drifted off to sleep by the department anesthesia GETA. The patient tolerated this well. Patient presented with a Mcclellan still in place. Once confirmation of lines and ventilation the patient was transferred to a prone Roni table with Gentile head clamp. All bony prominences including wrists, elbows, axilla, chest, hips, and thighs, and feet were padded very well. Special attention was paid to the genitalia and these were padded accordingly. SCDs were placed on bilateral lower extremities and were connected. Arms were well padded and placed tucked at her side thumbs down and well-padded. Once in position, again we confirmed good ventilation capabilities and that lines were running appropriately. The patient's posterior cervical spine was then exposed. Hair clippers were used to remove the hair up to the top of the patella. Then cleaned this area of any hair and with alcohol. 1010s were placed outlining the incision site. Standard alcohol was used to clean the incision site and allowed to dry. C-arm was used to biomark the patient and confirm level for incision which was marked with a skin marker. Operative briefing was performed with all teams and everyone in agreement to proceed. The patient was then prepped and draped in a normal sterile fashion. Timeout was then performed and all parties were in agreement with the procedure to be performed. Skin incision was then made over the previously by a marked area midline over the patient's posterior neck. Electrocautery dissection was taken down through the nuchal ligament palpating the CT bias process as well as the T1 spinous process to ensure midline the hallway. Once we encountered the C2 spinous process we then dissected out each spinous process and sequentially and down to T1. Midline fasciotomy over C7-T1 was made. We then exposed subperiosteally the lamina of C2 out to the joints from C2 to T1. Once there was good exposure in this area we irrigated the wound thoroughly. We then turned our attention to C2 where a Norris 4 was used to dissect over the superior arch of C2 to the pedicle of C2. The Norris 4 was placed on the medial border of the pedicle as a marker. We then under lateral fluoroscopy selected a starting point midway in the joint of C2-C3 aiming cranially and medially. We then under fluoroscopic guidance in the lateral position sequentially drilled by 2 mm increments the left C2 pedicle palpating with a ball probe after every 2 mm and under fluoroscopic guidance to ensure within the pedicle. Once we reached 20 mm we first tapped the hole the same trajectory and then felt to ensure within the pedicle and then placed a screw. We then repeated this process on the right- hand side. Screws were placed atraumatically at C2. We then turned our a ttention to lateral mass screw placement which we performed from C3 to C6. First we decorticated the facet joints and then high-speed bur was used to create starting points for each of the lateral mass screws. These were then drilled under lateral fluoroscopic guidance to 12 mm. We prepped holes at C7 however there was not enough room to place the screws and we turned our attention to placing T1 screws. T1 screws were placed under AP guided fluoroscopy and lateral. First a high-speed bur was used to access the pedicle followed by a pedicle finder and then a feeler we then tapped the holes and placed 40 30 mm screws bilaterally. These are confirmed under AP and lateral fluoroscopy to be in good position. We then thoroughly irrigated the wound. We then used a template elder to template for a femoral elder. This was then cut and bent to allow for reduction. We then placed these rods atraumatically set screws were placed and final tightened. Under lateral fluoroscopy perform the reduction of the last 2 screws in C6 and T1. This confirmed good reduction and alignment. We then again copiously irrigated the wound. We then turned our attention to the decompression from C2 to C7. Patient's maps were maintained above 80 motors were run prior to this and after screw placement and motors were stable and there was improvement in SSEPs after the reduction. We then performed bilateral laminectomy decompression of C2 to C7. Once the canal was unroofed we ran another motor and all signals were stable. We then performed meticulous hemostasis using FloSeal patties and bipolar electrocautery. Kerrison rongeur was used to clean the edges of the laminectomy defect. We performed bilateral foraminotomies at C5. We then copiously irrigated the wound with 3 L of antibiotic irrigation followed by 3 L of normal sterile saline. We then placed bone graft which was a mixture of autograft allograft and DBM in the posterior lateral gutters. Remainder of the spinous process of T1 was decorticated. An bone graft was laid at the C7-T1 junction. We then placed Surgicel over the dura and 2 cross-links were placed at the C5 and C6 regions. Again meticulous hemostasis was observed. We then placed vancomycin deep within the wound as well as a deep drain. The wound was then closed in a layered fashion first in the cervical thoracic fascia with #1 Vicryl 0 PDS. Deep subcu was closed with 0 PDS superficial subcu closed with 2-0 PDS and skin was closed with 2-0 nylon in a horizontal mattress fashion. We then cleaned and dressed the wound sterilely with sterile Adaptic ABDs and foam tape. The patient was then transferred back to her bed atraumatically and a team fashion holding cervical stability the Gentile clamp was removed 3 mario were placed on the left-hand side in the posterior pin site as it was oozing. She was placed in a hard cervical collar. Drain continued to hold suction and were in good position. Patient was then awakened and extubated by the department of anesthesia having tolerated the procedure very well with no complications. She was transferred to the postoperative care unit in stable condition.
--- NOTE | 2021-01-31 11:08 | P.PN ---
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 She is in a lot of pain last night the Dilaudid is helping however it is very temporary and she is only on [place] fives right now so we need to change her pain medication regimen and this is addressed today. She is otherwise doing fairly well drain is maintained other issues no swallowing issues. She has not been up today she states that her arms and legs continue to improve. Objective - Vital Signs Vital signs: Vital Signs Temp 97.8 F 01/31/21 09:00 Pulse 78 01/31/21 10:00 Resp 11 L 01/31/21 10:00 BP 135/86 01/31/21 10:00 Pulse Ox 97 01/31/21 10:00 Intake & Output 01/30/21 01/31/21 01/31/21 18:59 06:59 18:59 Intake Total 2175 1183 537 Output Total 2105 1020 500 Balance 70 163 37 Weight 91.7 kg Intake: IV 2175 1183 412 A line flush 24 33 12 Cefepime 2 gm In Sodium 100 Chloride 0.9% 100 ml @ 25 mls/hr IVPB Q8H [facility] Rx#: [id number] Lactated Ringers 1,000 ml 700 1100 400 @ 100 mls/hr IV .Q10H [facility] Rx#:[id number] Magnesium Sulfate-D5w Pmx 200 1 gm In Dextrose/Water 1 100ml.bag @ 100 mls/hr IVPB Q1H [facility] Rx#: [id number] Intake, IV Titration 125 Amount Vancomycin 1,500 mg In 125 Sodium Chloride 0.9% 250 ml @ 125 mls/hr IVPB Q8HR [facility] Rx#:[id number] Output: Urine 1855 1020 500 Estimated Blood Loss 250 Other: Voiding Method Indwelling Catheter Indwelling Catheter ABP, PAP, CO, CI - Last Documented Arterial Blood Pressure 135/68 - Exam Exam is repeated today. Her diadiokinesis is still sluggish but it is im proving. Her long tract signs are still improving as well. She has better and more motion in her legs and in her arms. She is passing gas, no Bm yet. Garcia in place PHYSICAL EXAMINATION: Vitals: Stable General: Awake, alert, appropriate for age, in no acute distress. HEENT: No unusual neck masses around region of lateral neck triangle, thyroid, supraclavicular groove. [Heart: Regular rate and rhythm, normal S1, S2 and no murmur/gallop.] [Lungs: Clear to auscultation bilaterally with no use of accessory muscles.] Extremities: Skin warm and dry without no acute lesions, coloration, temperature, skin intact, no tenderness or erythema. Integument: Hairy patches: Absent Dorsal skin dimples: Absent Cafe au la[employer] spots: Absent Surgical incisions: CDI anterior neck in cision. Drain in place and has about 25 cc out serosanguinous. Palpation: Please see Pain drawing on Intake sheet for further detail. (Tenderness = T, Nontender = NT, Swelling = S, Ecchymosis = E) Findings on Midline and paraspinal palpation and percussion: Cervical: tennis palpation posteriorly with deformity home noted anterior tenderness due to incision. No flucctuence no large masses. Thoracic: NT Lumbar: NT Sacral: NT Special findings: None VASCULAR STATUS : Wrist Pulses: [2/4 bilateral radial and ulnar] Pedal Pulses: [2/4 bilateral DP and PT] Color: [Normal] Edema: [None] NEUROLOGIC EXAMINATION: Mental Status: Awake and alert, fully oriented, with normal attention, concentration and memory, and fluent, appropriate speech. Cranial Nerves: I: Olfactory not tested. II: Visual acuity normal, no visual field deficit noted with confrontation. III,IV: Normal pupillary reflexes & intact extraocular movements without ny stagmus. V,: Intact symmetrical facial sensation. VII: Intact symmetrical facial motor movement VIII: Hearing intact. IX,X: Intact gag, swallow, & normal voice. XI: Sternocleidomastoid, trapezius function intact. XII: Tongue midline with normal movements. Special Tests: L'hermitte's Sign: Absent Spurling'Sign: Absent Bilateral Cubital percussion test: Absent Bilateral Braden-Tinel sign - Carpal region: Absent Bilateral Straight Leg Raising: Absent Bilateral Motor Exam (0-5/5, N/T) STRENGTH UPPER EXTREMITY Shoulder Abd (Not part of JIMI Motor score): RIGHT 3 LEFT 3 Elbow Flexors: RIGHT 3 LEFT 3 Elbow Extensor: RIGHT3 LEFT 3 Wrrist Dorsiflexors: RIGHT 3 LEFT3 Finger Abductor: RIGHT 3 LEFT 3 Cremator: RIGHT 3 LEFT 3 LOWER EXTREMITY Hip Flexor (Not part of JIMI Motor Score): RIGHT 3 LEFT3 Knee Flexor: RIGHT 3 LEFT 3 Knee Extensor: [id number] 3 Ankle Dorsiflexion: RIGHT 3 LEFT 3 Ankle Plantarflexion: RIGHT3 LEFT 3 EHL: RIGHT 3 LEFT 3 FHL: RIGHT 3LEFT 3 While specific strength testing shows antigravity, she is improving quite a bit in her strength and will likely progress. She is showing some 4-/5 strengths in arms and her hands are moving much better. She does have soreness and some pain still. REFLEXES Biecp: RIGHT [3] LEFT [3] Tricep: RIGHT 3 LEFT3 Brachioradialis: RIGHT 3 LEFT3 Patellar: RIGHT 3 LEFT 3 Achilles: RIGHT 3 LEFT3 Improving and not as brisk Pathological Reflexes Villafuerte's: RIGHT Present LEFT Present Improving and not as brisk Babinski: RIGHT [Absent] LEFT [Absent] Clonus: RIGHT Sustained LEFT Sustained still has clonus b/l, RLE no longer s ustained about 12 beats, left still sustained but less brisk SENSORY Joint Position: [Intact bilaterally] Vibration Unable to feel Pain and LT sense [Intact C5-T1 and L2-S1] but dulled in all levels Dermatomal deficit: Improving in all ext Gait and Functional Evaluation: Ambulatory aids: Bed bound currently Hand and finger dexterity Not intact bilaterally but improving. Disdiadochokinesis examination Pos bilaterally; but improving - Labs CBC & Chem 7: 01/31/21 04:53 01/31/21 05:06 Labs: Abnormal Lab Results - Last 24 Hours (Table) 01/31/21 01/31/21 01/31/21 Range/Units 04:53 04:53 05:06 WBC 11.5 H (3.8-10.6) k/uL Hgb 10.7 L (11.4-16.0) gm/dL Hct 31.5 L (34.0-46.0) % MCV 77.5 L (80.0-100.0) fL RDW 17.2 H (11.5-15.5) % Neutrophils # 9.8 H (1.3-7.7) k/uL Creatinine 0.42 L 0.40 L (0.52-1.04) mg/dL Glucose 157 H (74-99) mg/dL POC Glucose (mg/dL) (75-99) mg/dL 01/31/21 Range/Units 09:32 WBC (3.8-10.6) k/uL Hgb (11.4-16.0) gm/dL Hct (34.0-46.0) % MCV (80.0-100.0) fL RDW (11.5-15.5) % Neutrophils # (1.3-7.7) k/uL Creatinine (0.52-1.04) mg/dL Glucose (74-99) mg/dL POC Glucose (mg/dL) 119 H (75-99) mg/dL Microbiology - Last 24 Hours (Table) 01/26/21 16:50 Blood Culture - Preliminary Blood No Growth after 96 hours 01/26/21 16:50 Blood Culture - Preliminary Blood No Growth after 96 hours 01/27/21 11:00 Anaerobic Culture - Preliminary Cervix 01/27/21 11:00 Gram Stain - Final Other - Other Wound Culture - Final Staphylococcus aureus Assessment and Plan Assessment: 1. 36 yo female with C5-6 osteodiscitis with severe kyphotic deformity, severe stenosis and progressive myelopathy POD4 C5 and C6 corpectomy with arthrodesis C4-7. POD1 C2-T1 decompression and fusion 2. s/p ORIF femur with revision and infection 3. IVDA 4. Complex medical patient Plan: -Appreciate investigations consultant and team management. -Activity: Ambulate QID, OOB all meals, up and about, limit lifting bending twisting to less than 5 lbs. Use walker or cane if needed for stability. -Daily PT/OT, increase ambulation strength and balance. -Rigid cervical collar at all times -Work on getting up today at bedside -Pain control: Regiment revamp -IV tylenol CI[facility]AN 1000 q6 -Oxy IR 5-10 mg q4 hrs pain scale 0-5 and >5 respectively -Oxy ER 10 mg q12 -Flexeril 10 [facility] TID -Valium 5 mg PRN anxiety -Dilaudid 1 mg q3 hrs breakthrough pain -Meds: reviewed -GI ppx: senna, Miralax -maintain garcia for now, will need for tomorrow stage II -DVT PPX: OK to restart Heparin tonight -Hygiene: Maintain proper hygiene, may shower as long as she has help. -Drains: Maintain for now. Record output -Encourage IS 10x/hr -Stable from Ortho standpoint to be TF out of ICU. May change neurochecks to Qshift -Dispo: Pending
[2021-01-31 11:43] LABS: Glucose,Whole Blood 159 mg/dL (75-99)
--- NOTE | 2021-01-31 12:02 | P.PN ---
Subjective Progress Note Date: 01/31/21 Principal diagnosis: Status post anterior cervical fusion, C5 to C6 corpectomy and C4 C7 stabilization postoperative day #4 Status post posterior C2 T1 posterior lateral instrumented fusion, C2 C7 decompressive laminectomy and posterior cervical segmental instrumentation postoperative day #1 This is a 36-year-old white female patient of Dr. Sarmiento with past medical history of polysubstance abuse, who presented to the emergency department on 01/26/2021 per EMS due to complaints of neck pain, , And bilateral arm weakness. Patient reports sustaining a fall and sustaining a fracture of the right femur in May 2020. The fracture was later deemed to be pathological due to possible osteomyelitis and patient for some reason did not receive IV antibiotics. She was subsequently seen at multiple facilities at multiple times in most recently she has been trying to undergo an outpatient MRI due to gradually worsening neck pain and arm weakness for the past several weeks. She was recently seen at [facility] approximately a week ago and was scheduled to undergo an MRI but left AGAINST MEDICAL ADVICE. Over last week she reports gradually worsening neck pain along with weakness of her bilateral arms and legs which has acutely worsened over the past weekend and she called 911 and was brought into the emergency department. Patient had a cervical/thoracic/lumbar spine MRI with and without contrast showing multiple fractures of the cervical spine including C5 and C6, discitis and paravertebral abscess of the cervical spine level, severe spinal stenosis, and cervical spinal cord edema. Brain CT revealed possible mastoiditis. Patient was seen by or [facility] in consultation, and surgical intervention was recommended. In the meantime patient was placed in the intensive care unit for closer monitoring, she was started on IV Decadron, and antibiotics in the form of cefepime and vancomycin. She was given oral and IV narcotics for pain relief. On 01/27/2021 she underwent anterior cervical C5-C6 corpectomy, and C4 -C7 stabilization cervical deformity and myelopathy by Dr. Rogers. Seen the patient in the postoperative period in the intensive care unit, she is currently on 3 L of oxygen her pulse ox is 99%, vital signs are stable, she is afebrile. X-ray of the cervical spine following the surgery was completed showing cervical spine hardware traversing the C5-C6 fractures. She continues on antibiotics with cefepime and vancomycin. Remains on Decadron, remains on Neurontin and Flexeril. Patient was reevaluated again today on 01/28/2021, remains in the ICU, patient presented with C5-C6 ostomy discitis and severe cervical deformity with myelopathy. Underwent surgery and today is her postoperative day #2. Patient is noticing significant improvement in her strength and motion of upper and lower extremities bilaterally. She is able to raise her arms, raise her legs, and squeezes hands. Patient tells me that she is feeling much better today and much stronger compared to how she felt on her initial presentation. Patient is complaining of some pain and stiffness in the neck. Overall the patient is stable, and steadily improving. She is doing well with incentive spirometer. And advised to continue to do so. Chest x-ray is relatively unremarkable except for minimal atelectasis. CBC is relatively normal electrolytes are normal renal profile is normal Reevaluated today on 01/29/2021, patient remains in the ICU, she is postoperative day #2 patient had spinal surgery as noted above. She is on room air O2 sats is 96%. Patient has IV fluid at 100 mL/h, doing great with incentive spirometry. No major issues over the last 24 hours, strength is getting better in upper and lower extremities. Patient is scheduled for surgery again phase II. Patient was reevaluated today on 01/30/2021, remains in the ICU, supposed to have surgery today but apparently may have to be delayed until tomorrow. Patient is on room air, relatively asymptomatic, regaining strength in her upper and lower extremities gradually. Patient has no active symptoms whatsoever. CBC is normal basic metabolic profile is normal renal profile is normal Reevaluated today on 01/31/2021, patient remains in the ICU, doing great except for some surgical pain. Denies any shortness of breath, no cough, no wheezing. Patient is receiving IV fluid at 100 mL per hour. Doing extremely well and very compliant with incentive spirometer. No major issues in the last 24 hours. Tolerated her second surgery yesterday quite well. Objective - Vital Signs Vital signs: Vital Signs Temp 97.8 F 01/31/21 09:00 Pulse 73 01/31/21 11:00 Resp 14 01/31/21 11:00 BP 122/84 01/31/21 11:00 Pulse Ox 96 01/31/21 11:00 Intake & Output 01/30/21 01/31/21 01/31/21 18:59 06:59 18:59 Intake Total 2175 1183 537 Output Total 2105 1020 650 Balance 70 163 -113 Weight 91.7 kg Intake: IV 2175 1183 412 A line flush 24 33 12 Cefepime 2 gm In Sodium 100 Chloride 0.9% 100 ml @ 25 mls/hr IVPB Q8H [facility] Rx#: [id number] Lactated Ringers 1,000 ml 700 1100 400 @ 100 mls/hr IV .Q10H [facility] Rx#:[id number] Magnesium Sulfate-D5w Pmx 200 1 gm In Dextrose/Water 1 100ml.bag @ 100 mls/hr IVPB Q1H [facility] Rx#: [id number] Intake, IV Titration 125 Amount Vancomycin 1,500 mg In 125 Sodium Chloride 0.9% 250 ml @ 125 mls/hr IVPB Q8HR [facility] Rx#:[id number] Output: Urine 1855 1020 650 Estimated Blood Loss 250 Other: Voiding Method Indwelling Catheter Indwelling Catheter # Bowel Movements 1 ABP, PAP, CO, CI - Last Documented Arterial Blood Pressure 135/68 - Exam GENERAL EXAM: Revealed 36-year-old female in no distress. On room air HEAD: Normocephalic/atraumatic. EENT: PERRLA, EOMI, nonicteric, moist mucous membranes NECK:Right neck surgical incisions covered with a surgical dressing, CHEST: Symmetrical chest expansion. LUNGS: Clear throughout no crackles or rhonchi or wheezes CVS: Normal S1 and S2, no S3 gallop. ABDOMEN: Nontender no megaly no rebound no guarding EXTREMITIES: No clubbing edema or cyanosis. MUSCULOSKELETAL: No deformities. Strength seems to be 4/5 bilaterally SKIN: No rashes, patient has multiple areas of need fisher and small scabs on her hands, no open areas no open wounds CENTRAL NERVOUS SYSTEM: Alert and oriented 3, no gross focal neurologic deficit. - Labs CBC & Chem 7: 01/31/21 04:53 01/31/21 05:06 Labs: Abnormal Lab Results - Last 24 Hours (Table) 01/31/21 01/31/21 01/31/21 Range/Units 04:53 04:53 05:06 WBC 11.5 H (3.8-10.6) k/uL Hgb 10.7 L (11.4-16.0) gm/dL Hct 31.5 L (34.0-46.0) % MCV 77.5 L (80.0-100.0) fL RDW 17.2 H (11.5-15.5) % Neutrophils # 9.8 H (1.3-7.7) k/uL Creatinine 0.42 L 0.40 L (0.52-1.04) mg/dL Glucose 157 H (74-99) mg/dL POC Glucose (mg/dL) (75-99) mg/dL 01/31/21 01/31/21 Range/Units 09:32 11:42 WBC (3.8-10.6) k/uL Hgb (11.4-16.0) gm/dL Hct (34.0-46.0) % MCV (80.0-100.0) fL RDW (11.5-15.5) % Neutrophils # (1.3-7.7) k/uL Creatinine (0.52-1.04) mg/dL Glucose (74-99) mg/dL POC Glucose (mg/dL) 119 H 159 H (75-99) mg/dL Microbiology - Last 24 Hours (Table) 01/26/21 16:50 Blood Culture - Preliminary Blood No Growth after 96 hours 01/26/21 16:50 Blood Culture - Preliminary Blood No Growth after 96 hours 01/27/21 11:00 Anaerobic Culture - Preliminary Cervix 01/27/21 11:00 Gram Stain - Final Other - Other Wound Culture - Final Staphylococcus aureus Assessment and Plan Assessment: Impression: Postoperative day #4, C5 and C6 corpectomy and arthrodesis of C4-7 Postoperative day #1 posterior C2-T1 posteriolateral instrumental fusion, C2 C7 decompressive laminectomy posterior cervical segmental instrumentation Acute progressive myelopathy secondary to C5-C6 osteo discitis and severe kyphotic deformity with severe stenosis History of IV drug abuse. History of ORIF femur and revision with infection. Recommendation: Continue present supportive care measures. Continue antibiotics. As per infectious disease on the case. Wound culture is positive for MSSA. May have to change antibiotics. Continue incentive spirometer. Continue Decadron. Continue pain control. Will follow Time with Patient: Less than 30
[2021-01-31] MEDS: polyethylene glycoL 3350 17 GM POWD.PACK PO SCH (13:30)
[2021-01-31] MEDS: CYCLOBENZAPRINE 10 MG TAB PO SCH ×2 (15:37→22:29)
[2021-01-31 16:50] LABS: Glucose,Whole Blood 140 mg/dL (75-99)
--- NOTE | 2021-01-31 18:32 | P.PN ---
Subjective Progress Note Date: 01/31/21 Principal diagnosis: Status post anterior cervical fusion, C5 to C6 corpectomy and C4 C7 stabilization postoperative day #4 Status post posterior C2 T1 posterior lateral instrumented fusion, C2 C7 decompressive laminectomy and posterior cervical segmental instrumentation postoperative day #1 01/31/2021, patient remains in the ICU, doing great except for some surgical pain. Denies any shortness of breath, no cough, no wheezing. Patient is receiving IV fluid at 100 mL per hour. Doing extremely well and very compliant with incentive spirometer. No major issues in the last 24 hours. Tolerated her second surgery yesterday quite well. 01/31/2021 patient is seen and evaluated in room at bedside; remains in the ICU, doing great except for some surgical pain. Denies any shortness of breath, no cough, no wheezing. Patient is receiving IV fluid at 100 mL per hour. Doing extremely well and very compliant with incentive spirometer. No major issues in the last 24 hours. patient is status post C2 the lung posteriorly the electrodes instrumented fusion, C2 C7 decompressive laminectomy; Tolerated her second surgery yesterday quite well. continue with current supportive care; wound culture is positive for MSSA; await recommendations from ID for antibiotic adjustment Objective - Vital Signs Vital signs: Vital Signs Temp 98.0 F 01/31/21 12:00 Pulse 66 01/31/21 15:00 Resp 12 01/31/21 15:00 BP 128/85 01/31/21 15:00 Pulse Ox 96 01/31/21 15:00 Intake & Output 01/30/21 01/31/21 01/31/21 18:59 06:59 18:59 Intake Total 2175 1183 1177 Output Total 2105 1020 1570 Balance 70 163 -393 Weight 91.7 kg 91.7 kg Intake: IV 2175 1183 927 A line flush 24 33 27 Cefepime 2 gm In Sodium 100 Chloride 0.9% 100 ml @ 25 mls/hr IVPB Q8H [facility] Rx#: [id number] Lactated Ringers 1,000 ml 700 1100 900 @ 100 mls/hr IV .Q10H [facility] Rx#:[id number] Magnesium Sulfate-D5w Pmx 200 1 gm In Dextrose/Water 1 100ml.bag @ 100 mls/hr IVPB Q1H [facility] Rx#: [id number] Intake, IV Titration 250 Amount Vancomycin 1,500 mg In 250 Sodium Chloride 0.9% 250 ml @ 125 mls/hr IVPB Q8HR [facility] Rx#:[id number] Output: Urine 1855 1020 1570 Estimated Blood Loss 250 Other: Voiding Method Indwelling Catheter Indwelling Catheter Indwelling Catheter # Bowel Movements 1 ABP, PAP, CO, CI - Last Documented Arterial Blood Pressure 135/68 - Exam GENERAL EXAM: Revealed 36-year-old female in no distress. On room air HEAD: Normocephalic/atraumatic. NECK:Right neck surgical incisions covered with a surgical dressing, CHEST: Symmetrical chest expansion. LUNGS: Clear throughout no crackles or rhonchi or wheezes CVS: Normal S1 and S2, no S3 gallop. ABDOMEN: Nontender no megaly no rebound no guarding EXTREMITIES: No clubbing edema or cyanosis. MUSCULOSKELETAL: No deformities. Strength seems to be 4/5 bilaterally SKIN: No rashes, patient has multiple areas of need fisher and small scabs on her hands, no open areas no open wounds - Labs CBC & Chem 7: 01/31/21 04:53 01/31/21 05:06 Labs: Abnormal Lab Results - Last 24 Hours (Table) 01/31/21 01/31/21 01/31/21 Range/Units 04:53 04:53 05:06 WBC 11.5 H (3.8-10.6) k/uL Hgb 10.7 L (11.4-16.0) gm/dL Hct 31.5 L (34.0-46.0) % MCV 77.5 L (80.0-100.0) fL RDW 17.2 H (11.5-15.5) % Neutrophils # 9.8 H (1.3-7.7) k/uL Creatinine 0.42 L 0.40 L (0.52-1.04) mg/dL Glucose 157 H (74-99) mg/dL POC Glucose (mg/dL) (75-99) mg/dL 01/31/21 01/31/21 01/31/21 Range/Units 09:32 11:42 16:49 WBC (3.8-10.6) k/uL Hgb (11.4-16.0) gm/dL Hct (34.0-46.0) % MCV (80.0-100.0) fL RDW (11.5-15.5) % Neutrophils # (1.3-7.7) k/uL Creatinine (0.52-1.04) mg/dL Glucose (74-99) mg/dL POC Glucose (mg/dL) 119 H 159 H 140 H (75-99) mg/dL Microbiology - Last 24 Hours (Table) 01/27/21 11:00 Anaerobic Culture - Final Cervix 01/27/21 11:00 Anaerobic Culture - Final Cervix 01/26/21 16:50 Blood Culture - Preliminary Blood No Growth after 96 hours 01/26/21 16:50 Blood Culture - Preliminary Blood No Growth after 96 hours Assessment and Plan Assessment: Postoperative day #4, C5 and C6 corpectomy and arthrodesis of C4-7 Postoperative day #1 posterior C2-T1 posteriolateral instrumental fusion, C2 C7 decompressive laminectomy posterior cervical segmental instrumentation Acute progressive myelopathy secondary to C5-C6 osteo discitis and severe kyphotic deformity with severe stenosis History of IV drug abuse. History of ORIF femur and revision with infection. Recommendation: Continue present supportive care measures. Continue antibioticsin form of IV vancomycin. ID on the case. Wound culture is positive for MSSA. May have to change antibiotics. Continue incentive spirometer. Continue Decadron. Continue pain control.
[2021-01-31] MEDS ORDERED: GABAPENTIN 300 MG CAP PO SCH (21:00)
[2021-01-31 21:06] LABS: Glucose,Whole Blood 366 mg/dL (75-99)
[2021-01-31] MEDS ORDERED: INSULIN REGULAR BOLUS (FROM DRIP BAG) IV PRN (22:26)
[2021-01-31 22:45] LABS: Glucose,Whole Blood 171 mg/dL (75-99)
[2021-01-31] MEDS ORDERED: INSULIN REGULAR 100 UNIT in SODIUM CHLORIDE 0.9% 100 ML IV SCH (22:45)
--- NOTE | 2021-01-31 23:40 | PN ---
PROGRESS NOTE DATE OF SERVICE: 01/26/2021. REASON FOR FOLLOWUP: MSSA cervical paraspinal abscess. INTERVAL HISTORY: Patient is afebrile. The patient is breathing comfortably. Overall, pain discomfort is chronic. It is currently controlled. No chest pain, shortness of breath or cough. No abdominal pain, no diarrhea. PHYSICAL EXAMINATION: Blood pressure 127/86, pulse of 73, temperature 98. She is 96% on room air. The patient is a middle-aged female lying in bed, in no distress. RESPIRATORY SYSTEM: Unlabored breathing. LUNGS: Clear to auscultation anteriorly. HEART: S1, S2. Regular rate and rhythm. ABDOMEN: Soft, no tenderness. EXTREMITIES: No edema of the feet. LABS: Hemoglobin is 10.1, white count 11.5, BUN of 16, creatinine 0.42. Local cultures with MSSA. Blood culture has been negative. DIAGNOSTIC IMPRESSION AND PLAN: Patient with MSSA, right concurrent spinal abscess status post drainage of the abscess with the date of surgery completed yesterday. Patient is covered with cefazolin, to continue. Will monitor clinical course closely. Continue supportive care. MMODL / IJN: [id number] /
[2021-02-01] MEDS: VANCOMYCIN 1,500 MG in SODIUM CHLORIDE 0.9% 250 ML IVPB SCH ×2 (00:36→17:52)
[2021-02-01] MEDS: ACETAMINOPHEN IV (For NPO) 1,000 MG in EMPTY BAG 1 BAG IVPB SCH ×2 (00:36→06:29)
[2021-02-01] MEDS: DEXAMETHASONE SOD PHOSPHATE 4 MG/ML 1 ML VIAL IV SCH ×7 (00:37→23:47)
[2021-02-01] MEDS: HYDROmorphone 1 MG/ML 1 ML SYRINGE IVP PRN ×7 (01:25→21:12)
[2021-02-01 05:06] LABS: African American GFR (CKD) >90 (>60 ml/min/1.73 sqM); Anion Gap 3 mmol/L; Blood Urea Nitrogen 11 mg/dL (7-17); Calcium 8.6 mg/dL (8.4-10.2); Carbon Dioxide 30 mmol/L (22-30); Chloride 104 mmol/L (98-107); Glucose 182 mg/dL (74-99); Magnesium 1.7 mg/dL (1.6-2.3); Non-African American GFR(CKD) >90 (>60 ml/min/1.73 sqM); Phosphorus 3.1 mg/dL (2.5-4.5); Potassium 4.3 mmol/L (3.5-5.1); Sodium 137 mmol/L (137-145)
[2021-02-01 05:08] LABS: Anisocytosis Slight; Basophils % (A) 0 %; Eosinophils % (A) 0 %; HCT 31.7 % (34.0-46.0); HGB 10.4 gm/dL (11.4-16.0); Lymphocytes # (A) 0.9 k/uL (1.0-4.8); Lymphocytes % (A) 7 %; MCH 25.4 pg (25.0-35.0); MCHC 32.8 g/dL (31.0-37.0); MCV 77.3 fL (80.0-100.0); Mean Platelet Volume 7.8; Microcytosis Slight; Monocytes # (A) 0.6 k/uL (0-1.0); Monocytes % (A) 5 %; Neutrophils # (A) 11.1 k/uL (1.3-7.7); Neutrophils % (A) 87 %; Platelet Count 304 k/uL (150-450); RDW 17.3 % (11.5-15.5); WBC 12.8 k/uL (3.8-10.6)
[2021-02-01] MEDS: LACTATED RINGERS 1,000 ML IV SCH ×2 (06:29→15:51)
[2021-02-01 06:58] LABS: Glucose,Whole Blood 148 mg/dL (75-99)
[2021-02-01] MEDS ORDERED: VANCOMYCIN TROUGH DUE 1 EACH MISC MISCELLANE ONE (07:00)
[2021-02-01] MEDS: CYCLOBENZAPRINE 10 MG TAB PO SCH ×3 (07:51→20:56)
[2021-02-01] MEDS: GABAPENTIN 300 MG CAP PO SCH ×4 (07:52→20:56)
[2021-02-01] MEDS: INSULIN ASPART (NovoLOG) 100 UNIT/ML VIAL SQ SCH ×4 (07:56→20:57)
[2021-02-01] MEDS: MAGNESIUM SULFATE-D5W PMX 1 GM in DEXTROSE/WATER 1 100ML.BAG IVPB SCH ×2 (07:57→09:53)
[2021-02-01] MEDS ORDERED: VANCOMYCIN 1,250 MG in SODIUM CHLORIDE 0.9% 250 ML IVPB SCH (09:00)
[2021-02-01] MEDS: PANTOPRAZOLE 40 MG/10 ML VIAL IVP SCH (09:49)
--- NOTE | 2021-02-01 12:20 | P.PN ---
Subjective Progress Note Date: 02/01/21 Principal diagnosis: Status post anterior cervical fusion, C5 to C6 corpectomy and C4 C7 stabilization postoperative day #5 Status post posterior C2 T1 posterior lateral instrumented fusion, C2 C7 decompressive laminectomy and posterior cervical segmental instrumentation postoperative day #2 This is a 36-year-old white female patient of Dr. Sarmiento with past medical history of polysubstance abuse, who presented to the emergency department on 01/26/2021 per EMS due to complaints of neck pain, , And bilateral arm weakness. Patient reports sustaining a fall and sustaining a fracture of the right femur in May 2020. The fracture was later deemed to be pathological due to possible osteomyelitis and patient for some reason did not receive IV antibiotics. She was subsequently seen at multiple facilities at multiple times in most recently she has been trying to undergo an outpatient MRI due to gradually worsening neck pain and arm weakness for the past several weeks. She was recently seen at [facility] approximately a week ago and was scheduled to undergo an MRI but left AGAINST MEDICAL ADVICE. Over last week she reports gradually worsening neck pain along with weakness of her bilateral arms and legs which has acutely worsened over the past weekend and she called 911 and was brought into the emergency department. Patient had a cervical/thoracic/lumbar spine MRI with and without contrast showing multiple fractures of the cervical spine including C5 and C6, discitis and paravertebral abscess of the cervical spine level, severe spinal stenosis, and cervical spinal cord edema. Brain CT revealed possible mastoiditis. Patient was seen by or [facility] surgery in consultation, and surgical intervention was recommended. In the meantime patient was placed in the intensive care unit for closer monitoring, she was started on IV Decadron, and antibiotics in the form of cefepime and vancomycin. She was given oral and IV narcotics for pain relief. On 01/27/2021 she underwent anterior cervical C5-C6 corpectomy, and C4 -C7 stabilization cervical deformity and myelopathy by Dr. Rogers. Seen the patient in the postoperative period in the intensive care unit, she is currently on 3 L of oxygen her pulse ox is 99%, vital signs are stable, she is afebrile. X-ray of the cervical spine following the surgery was completed showing cervical spine hardware traversing the C5-C6 fractures. She continues on antibiotics with cefepime and vancomycin. Remains on Decadron, remains on Neurontin and Flexeril. Patient was reevaluated again today on 01/28/2021, remains in the ICU, patient presented with C5-C6 ostomy discitis and severe cervical deformity with myelopathy. Underwent surgery and today is her postoperative day #2. Patient is noticing significant improvement in her strength and motion of upper and lower extremities bilaterally. She is able to raise her arms, raise her legs, and squeezes hands. Patient tells me that she is feeling much better today and much stronger compared to how she felt on her initial presentation. Patient is complaining of some pain and stiffness in the neck. Overall the patient is stable, and steadily improving. She is doing well with incentive spirometer. And advised to continue to do so. Chest x-ray is relatively unremarkable except for minimal atelectasis. CBC is relatively normal electrolytes are normal renal profile is normal Reevaluated today on 01/29/2021, patient remains in the ICU, she is postoperative day #2 patient had spinal surgery as noted above. She is on room air O2 sats is 96%. Patient has IV fluid at 100 mL/h, doing great with incentive spirometry. No major issues over the last 24 hours, strength is getting better in upper and lower extremities. Patient is scheduled for surgery again phase II. Patient was reevaluated today on 01/30/2021, remains in the ICU, supposed to have surgery today but apparently may have to be delayed until tomorrow. Patient is on room air, relatively asymptomatic, regaining strength in her upper and lower extremities gradually. Patient has no active symptoms whatsoever. CBC is normal basic metabolic profile is normal renal profile is normal Reevaluated today on 01/31/2021, patient remains in the ICU, doing great except for some surgical pain. Denies any shortness of breath, no cough, no wheezing. Patient is receiving IV fluid at 100 mL per hour. Doing extremely well and very compliant with incentive spirometer. No major issues in the last 24 hours. Tolerated her second surgery yesterday quite well. Reevaluated today on 02/01/2021, patient remains in the ICU, doing fairly well, no complaints. She does have some neck pain, patient remains on medications for pain. Otherwise the patient denies any other symptoms, no cough no wheezing no shortness of breath. And seems to be regaining her strength back gradually. CBC today is relatively normal basic metabolic profile is normal renal profile is normal Objective - Vital Signs Vital signs: Vital Signs Temp 98.0 F 02/01/21 08:00 Pulse 74 02/01/21 12:00 Resp 18 02/01/21 12:00 BP 129/91 02/01/21 12:00 Pulse Ox 94 L 02/01/21 12:00 Intake & Output 01/31/21 02/01/21 02/01/21 18:59 06:59 18:59 Intake Total 1389 1100 520 Output Total 2220 1730 1450 Balance -831 630 -930 Weight 91.7 kg 95.1 kg Intake: IV 1139 1100 520 A line flush 39 Lactated Ringers 1,000 ml 1100 1100 520 @ 20 mls/hr IV .Q24H [facility] Rx#:[id number] Intake, IV Titration 250 Amount Vancomycin 1,500 mg In 250 Sodium Chloride 0.9% 250 ml @ 125 mls/hr IVPB Q8HR [facility] Rx#:[id number] Output: Urine 2220 1730 1450 Other: Voiding Method Indwelling Catheter Indwelling Catheter Indwelling Catheter # Bowel Movements 1 ABP, PAP, CO, CI - Last Documented Arterial Blood Pressure 135/68 - Exam GENERAL EXAM: Revealed 36-year-old female in no distress. On room air HEAD: Normocephalic/atraumatic. EENT: PERRLA, EOMI, nonicteric, moist mucous membranes NECK:Right neck surgical incisions covered with a surgical dressing, CHEST: Symmetrical chest expansion. LUNGS: Clear throughout no crackles or rhonchi or wheezes CVS: Normal S1 and S2, no S3 gallop. ABDOMEN: Nontender no megaly no rebound no guarding EXTREMITIES: No clubbing edema or cyanosis. MUSCULOSKELETAL: No deformities. Strength seems to be 4/5 bilaterally SKIN: No rashes, patient has multiple areas of need fisher and small scabs on her hands, no open areas no open wounds CENTRAL NERVOUS SYSTEM: Alert and oriented 3, no gross focal neurologic deficit. - Labs CBC & Chem 7: 02/01/21 03:58 02/01/21 03:58 Labs: Abnormal Lab Results - Last 24 Hours (Table) 01/31/21 01/31/21 01/31/21 Range/Units 16:49 21:05 22:43 WBC (3.8-10.6) k/uL Hgb (11.4-16.0) gm/dL Hct (34.0-46.0) % MCV (80.0-100.0) fL RDW (11.5-15.5) % Neutrophils # (1.3-7.7) k/uL Lymphocytes # (1.0-4.8) k/uL Creatinine (0.52-1.04) mg/dL Glucose (74-99) mg/dL POC Glucose (mg/dL) 140 H 366 H 171 H (75-99) mg/dL 02/01/21 02/01/21 02/01/21 Range/Units 03:58 03:58 06:56 WBC 12.8 H (3.8-10.6) k/uL Hgb 10.4 L (11.4-16.0) gm/dL Hct 31.7 L (34.0-46.0) % MCV 77.3 L (80.0-100.0) fL RDW 17.3 H (11.5-15.5) % Neutrophils # 11.1 H (1.3-7.7) k/uL Lymphocytes # 0.9 L (1.0-4.8) k/uL Creatinine 0.34 L (0.52-1.04) mg/dL Glucose 182 H (74-99) mg/dL POC Glucose (mg/dL) 148 H (75-99) mg/dL Microbiology - Last 24 Hours (Table) 01/26/21 16:50 Blood Culture - Preliminary Blood No Growth after 120 hours 01/26/21 16:50 Blood Culture - Preliminary Blood No Growth after 120 hours 01/27/21 11:00 Anaerobic Culture - Final Cervix 01/27/21 11:00 Anaerobic Culture - Final Cervix Assessment and Plan Assessment: Impression: Postoperative day #5, C5 and C6 corpectomy and arthrodesis of C4-7 Postoperative day #2 posterior C2-T1 posteriolateral instrumental fusion, C2 C7 decompressive laminectomy posterior cervical segmental instrumentation Acute progressive myelopathy secondary to C5-C6 osteo discitis and severe kyphotic deformity with severe stenosis History of IV drug abuse. History of ORIF femur and revision with infection. Recommendation: Continue present supportive care measures. Continue antibiotics. Presently on Ancef. Continue incentive spirometer. Continue Decadron. As per surgery on the case. Continue pain control. Will transfer the patient out to a surgical medical floor today. Will follow on when necessary basis. Will follow Time with Patient: Less than 30
[2021-02-01] MEDS: diazePAM 5 MG TAB PO PRN (12:37)
[2021-02-01 13:07] LABS: Glucose,Whole Blood 108 mg/dL (75-99)
--- NOTE | 2021-02-01 13:25 | PN ---
PROGRESS NOTE DATE OF SERVICE: 02/01/2021 CHIEF COMPLAINT: Status post fusion of cervical spine. HISTORY OF PRESENT ILLNESS: This lady is doing fairly well and is not in a great deal of discomfort. She is awake and alert. PHYSICAL EXAMINATION: Vital signs are normal. Chest is clear. Cardiac exam is normal and she is still in a cervical brace. IMPRESSION: Status post Staph discitis and osteomyelitis of the neck. PLAN: Continue to follow with Surgery and Infectious Disease. MMODL / IJN: [id number] /
[2021-02-01] MEDS: polyethylene glycoL 3350 17 GM POWD.PACK PO SCH (14:40)
[2021-02-01 17:18] LABS: Glucose,Whole Blood 159 mg/dL (75-99)
[2021-02-01 19:59] LABS: Glucose,Whole Blood 149 mg/dL (75-99)
[2021-02-01] MEDS: HEPARIN SODIUM,PORCINE/PF 5,000 UNIT/0.5 ML SYRINGE SQ SCH (20:57)
[2021-02-02] MEDS: HYDROmorphone 1 MG/ML 1 ML SYRINGE IVP PRN ×7 (00:08→21:13)
--- NOTE | 2021-02-02 00:24 | PN ---
PROGRESS NOTE DATE OF SERVICE: 02/01/2021 REASON FOR FOLLOWUP: Cervical paraspinal abscess MSSA. INTERVAL HISTORY: Patient is afebrile. The patient is breathing comfortably. Pain is currently controlled. No chest pain, shortness of breath or cough. No abdominal pain. No diarrhea. PHYSICAL EXAMINATION: Blood pressure 131/86, pulse of 74, temperature 98.4. She is 96% on room air. General description is a middle-aged female lying in bed in no distress. Respiratory system: Unlabored breathing. Clear to auscultation anteriorly. Heart: S1, S2. Regular rate and rhythm. Abdomen: Soft, no tenderness. LABS: Hemoglobin is 10.4, white count 12.8. BUN of 11, creatinine 0.34. DIAGNOSTIC IMPRESSION AND PLAN: Patient with cervical paraspinal abscess status post surgical drainage. The patient's antibiotic will be adjusted to cefazolin 2 g Q 8 hours. Vancomycin discontinued. Continue supportive care. MMODL / IJN: [id number] /
[2021-02-02] MEDS: DEXAMETHASONE SOD PHOSPHATE 4 MG/ML 1 ML VIAL IV SCH ×6 (03:55→23:43)
[2021-02-02 07:23] LABS: Glucose,Whole Blood 131 mg/dL (75-99)
[2021-02-02] MEDS: INSULIN ASPART (NovoLOG) 100 UNIT/ML VIAL SQ SCH ×4 (08:15→21:51)
[2021-02-02] MEDS: CYCLOBENZAPRINE 10 MG TAB PO SCH ×3 (08:19→21:51)
[2021-02-02] MEDS: PANTOPRAZOLE 40 MG/10 ML VIAL IVP SCH (08:20)
[2021-02-02] MEDS: GABAPENTIN 300 MG CAP PO SCH ×3 (08:20→21:12)
[2021-02-02] MEDS: HEPARIN SODIUM,PORCINE/PF 5,000 UNIT/0.5 ML SYRINGE SQ SCH ×2 (08:20→21:12)
[2021-02-02] MEDS: polyethylene glycoL 3350 17 GM POWD.PACK PO SCH (08:50)
[2021-02-02 11:53] LABS: Glucose,Whole Blood 139 mg/dL (75-99)
[2021-02-02] MEDS: LACTATED RINGERS 1,000 ML IV SCH (12:18)
--- NOTE | 2021-02-02 14:11 | P.PN ---
Progress Note - Text Progress Note Date: 02/02/21 Patient was seen this morning on the medical floor with cervical collar in place lying semirecumbent in bed.. Patient says she is feeling under much better pain control this morning. Anterior cervical dressing was changed. Anterior drain was removed from neck, with minimal drainage. Incision looks clean, dry, intact. Negative for purulence/fluctuance. Sutures are in good place. Anterior cervical incision is healing well. optifoam foam dressing was placed over incision. Jeff were removed from head as well. Minimal to no bleeding from staple site.
[2021-02-02 17:15] LABS: Glucose,Whole Blood 150 mg/dL (75-99)
--- NOTE | 2021-02-02 19:13 | PN ---
PROGRESS NOTE DATE OF SERVICE: 02/02/2021. CHIEF COMPLAINT: Cervical spine diskitis and osteomyelitis. HISTORY OF PRESENT ILLNESS: This lady is doing well. Neurologically, upper and lower extremities are improving each day. She has increase in strength and decrease in hypesthesias. She is afebrile. PHYSICAL EXAM: Head ears, eyes, nose, mouth are normal. Chest is clear. Cardiac exam is normal. IMPRESSION: Status post cervical fusion from C4-C7 for bacterial diskitis and osteomyelitis. PLAN: Continue to follow with Infectious Disease and Surgery. It sounds as though she will eventually be transferred to a long-term care facility for continued IV antibiotics and physical therapy. MMODL / IJN: [id number] /
--- NOTE | 2021-02-02 19:13 | PN ---
PROGRESS NOTE DATE OF SERVICE: 02/02/2021 REASON FOR FOLLOWUP VISIT: MSSA paraspinal abscess. INTERVAL HISTORY: The patient is currently afebrile. The patient is breathing comfortably. Pain to the cervical spine is currently controlled. No chest pain. No shortness of breath or cough. No abdominal pain, no diarrhea. PHYSICAL EXAMINATION: Blood pressure 126/80 with a pulse of 101, temperature 97.9. She is 97% on room air. General description is a middle-aged female lying in in no distress. Respiratory system: Unlabored breathing, clear to auscultation anteriorly. Heart S1, S2. Regular rate and rhythm. Abdomen soft, no tenderness. LABS: Blood culture has been negative. DIAGNOSTIC IMPRESSION AND PLAN: Patient with MSSA cervical paraspinal abscess status post surgical drainage. The patient is currently on cefazolin, to continue. Blood culture remains negative. She will need a PICC line for IV antibiotics ( ) clinical response and monitor clinical course closely. MMODL / IJN: [id number] /
[2021-02-02 21:42] LABS: Glucose,Whole Blood 190 mg/dL (75-99)
[2021-02-03] MEDS: diazePAM 5 MG TAB PO PRN ×2 (03:00→17:51)
[2021-02-03] MEDS: DEXAMETHASONE SOD PHOSPHATE 4 MG/ML 1 ML VIAL IV SCH ×6 (03:57→23:50)
--- NOTE | 2021-02-03 06:37 | P.PN ---
<Yobani Cabrera - Last Filed: 02/02/21 14:13> Subjective Progress Note Date: 02/02/21 Principal diagnosis: C5-6 osteodiscitis with severe cervical deformity, JIMI B, Objective - Vital Signs Vital signs: Vital Signs Temp 97.9 F 02/02/21 12:05 Pulse 101 H 02/02/21 12:05 Resp 18 02/02/21 12:05 BP 126/88 02/02/21 12:05 Pulse Ox 97 02/02/21 12:05 Intake & Output 02/01/21 02/02/21 02/02/21 18:59 06:59 18:59 Intake Total 840 50 Output Total 1800 2140 Balance -960 -2090 Weight 95.1 kg Intake: IV 600 Lactated Ringers 1,000 ml 600 @ 20 mls/hr IV .Q24H [facility] Rx#:[id number] Intake, IV Titration 50 Amount ceFAZolin 2 gm In Sodium 50 Chloride 0.9% 50 ml @ 100 mls/hr IVPB Q8HR [facility] Rx# :[id number] Oral 240 Output: Drainage 40 Neck 40 Urine 1800 2100 Other: Voiding Method Indwelling Catheter External Catheter External Catheter # Voids 1 # Bowel Movements 0 ABP, PAP, CO, CI - Last Documented Arterial Blood Pressure 135/68 - Labs CBC & Chem 7: 02/01/21 03:58 02/01/21 03:58 Labs: Abnormal Lab Results - Last 24 Hours (Table) 02/01/21 02/01/21 02/02/21 Range/Units 17:17 19:57 07:18 POC Glucose (mg/dL) 159 H 149 H 131 H (75-99) mg/dL 02/02/21 Range/Units 11:50 POC Glucose (mg/dL) 139 H (75-99) mg/dL Microbiology - Last 24 Hours (Table) 01/27/21 11:00 Gram Stain - Final Other - Other Wound Culture - Final Staphylococcus aureus 01/27/21 11:00 Anaerobic Culture - Final Cervix 01/27/21 11:00 Gram Stain - Final Other - Other Wound Culture - Final Staphylococcus aureus 01/27/21 11:00 Anaerobic Culture - Final Cervix 01/26/21 16:50 Blood Culture - Final Blood No Growth after 144 hours 01/26/21 16:50 Blood Culture - Final Blood No Growth after 144 hours <Varun Rogers - Last Filed: 02/03/21 06:37> Subjective Pt s/e doing well. No issues overnight. Pain is better controlled now. She has not been up as of yet, but is sitting at bedside. Goals are to get up and move today. Denies any f/c/sob/cp. She is moving her arms and legs better. Objective - Vital Signs Vital signs: Vital Signs Temp 97.8 F 02/03/21 04:48 Pulse 83 02/03/21 04:48 Resp 16 02/03/21 04:48 BP 117/77 02/03/21 04:48 Pulse Ox 98 02/03/21 04:48 Intake & Output 02/02/21 02/02/21 02/03/21 06:59 18:59 06:59 Intake Total 50 1979 159 Output Total 2139 2199 165 Balance -2089 - Weight 95.1 kg Intake: Intake, IV Titration 50 50 Amount ceFAZolin 2 gm In Sodium 50 50 Chloride 0.9% 50 ml @ 100 mls/hr IVPB Q8HR [facility] Rx# :[id number] Oral 1979 154 Output: Drainage 40 Neck 40 Urine 2099 2199 1649 Other: Voiding Method External Catheter External Catheter External Catheter # Voids 1 3 # Bowel Movements 0 ABP, PAP, CO, CI - Last Documented Arterial Blood Pressure 135/68 - Exam Patient is alert and oriented 3 appears well-nourished well-hydrated is in no acute distress. They does not appear septic. On exam the patient has no tenderness to palpation of her thoracic or lumbar spine. There is no edema or ballottement sign. Lower extremities with 4 out of 5 strength in all major muscle groups Upper extremities show 4/5 strength in all major muscle groups. 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 Some improving There is FROM that is painless of the b/l UE and LE in all major joints. They are intact to light touch sensation in L2 to S1 nerve distribution. 2/4 DTR all, brisk Patient has palpable dorsalis pedis was posterior tibial pulses. Palpable radial and ulnar pulses bilaterally Compartments are soft and compressible. Patient shows a negative Homans, Villafuerte's improving mildly positive bilaterally No more clonus at this time Babinski is negative and downgoing No tensioning signs. Cranial nerves II through XII are grossly intact. Overall alignment is well-maintained in the sagittal coronal planes. Incisions are clean dry and intact drains are in place anterior removed. Anterior incision doing well. Posterior incision and wound healing well drain in place still. - Labs CBC & Chem 7: 02/01/21 03:58 02/01/21 03:58 Labs: Abnormal Lab Results - Last 24 Hours (Table) 02/02/21 02/02/21 02/02/21 Range/Units 07:18 11:50 17:06 POC Glucose (mg/dL) 131 H 139 H 150 H (75-99) mg/dL 02/02/21 Range/Units 21:41 POC Glucose (mg/dL) 190 H (75-99) mg/dL Microbiology - Last 24 Hours (Table) 01/27/21 11:00 Gram Stain - Final Other - Other Wound Culture - Final Staphylococcus aureus 01/27/21 11:00 Anaerobic Culture - Final Cervix 01/27/21 11:00 Gram Stain - Final Other - Other Wound Culture - Final Staphylococcus aureus 01/27/21 11:00 Anaerobic Culture - Final Cervix Assessment and Plan Assessment: 1. 36 yo female with C5-6 osteodiscitis with severe kyphotic deformity, severe stenosis and progressive myelopathy POD6 C5 and C6 corpectomy with arthrodesis C4-7. POD3 C2-T1 decompression and fusion 2. s/p ORIF femur with revision and infection 3. IVDA 4. Complex medical patient Plan: -Appreciate service delivery consultant and team management. -Activity: Ambulate QID, OOB all meals, up and about, limit lifting bending twisting to less than 5 lbs. Use walker or cane if needed for stability. -Daily PT/OT, increase ambulation strength and balance. -Rigid cervical collar at all times -Work on getting up today at bedside -Pain control: Regiment revamp -IV tylenol [facility] 1000 q6 -Oxy IR 5-10 mg q4 hrs pain scale 0-5 and >5 respectively -Oxy ER 10 mg q12 -Flexeril 10 [facility] TID -Valium 5 mg PRN anxiety -Dilaudid 1 mg q3 hrs breakthrough pain -Meds: reviewed -GI ppx: senna, Miralax -DC garcia per protocol -DVT PPX: OK to restart Heparin tonight -Hygiene: Maintain proper hygiene, may shower as long as she has help. -Drains: Maintain for now. Record output -Encourage IS 10x/hr -Anterior drain DC today. DC posterior tomorrow -Dispo: [facility] 1-2 days
[2021-02-03 07:06] LABS: Anisocytosis Slight; HCT 33.3 % (34.0-46.0); HGB 10.9 gm/dL (11.4-16.0); MCH 25.2 pg (25.0-35.0); MCHC 32.7 g/dL (31.0-37.0); MCV 77.1 fL (80.0-100.0); Mean Platelet Volume 7.4; Microcytosis Slight; Platelet Count 379 k/uL (150-450); RBC 4.33 m/uL (3.80-5.40); RDW 17.4 % (11.5-15.5); WBC 16.1 k/uL (3.8-10.6)
[2021-02-03] MEDS: INSULIN ASPART (NovoLOG) 100 UNIT/ML VIAL SQ SCH ×4 (07:16→23:03)
[2021-02-03 07:18] LABS: African American GFR (CKD) >90 (>60 ml/min/1.73 sqM); Anion Gap 2 mmol/L; Blood Urea Nitrogen 22 mg/dL (7-17); C Reactive Protein 0.7 mg/dL (<1.0); Calcium 9.1 mg/dL (8.4-10.2); Carbon Dioxide 32 mmol/L (22-30); Chloride 102 mmol/L (98-107); Glucose 109 mg/dL (74-99); Non-African American GFR(CKD) >90 (>60 ml/min/1.73 sqM); Potassium 4.6 mmol/L (3.5-5.1); Sodium 136 mmol/L (137-145)
[2021-02-03 07:20] LABS: Glucose,Whole Blood 110 mg/dL (75-99)
--- NOTE | 2021-02-03 08:20 | ECHOF ---
Referral Reason:R/O valve vegetation MEASUREMENTS -------- HEIGHT: 170.2 cm WEIGHT: 96.2 kg BP: 120/79 RVIDd: 2.4 cm (< 3.3) IVSd: 1.0 cm (0.6 - 1.1) LVIDd: 4.9 cm (3.9 - 5.3) LVPWd: 1.1 cm (0.6 - 1.1) IVSs: 1.5 cm LVIDs: 3.2 cm LVPWs: 1.7 cm LA Diam: 3.5 cm (2.7 - 3.8) LAESV Index (A-L): 28.01 ml/m Ao Diam: 3.2 cm (2.0 - 3.7) AV Cusp: 2.6 cm (1.5 - 2.6) MV EXCURSION: 14.382 mm (> 18.000) MV EF SLOPE: 129 mm/s (70 - 150) EPSS: 0.5 cm MV E Oscar: 1.28 m/s MV DecT: 158 ms MV A Oscar: 1.38 m/s MV E/A Ratio: 0.93 RAP: 15.00 mmHg RVSP: 46.41 mmHg FINDINGS -------- Sinus rhythm. This was a technically good study. The left ventricular size is normal. There is borderline concentric left ventricular hypertrophy. Overall left ventricular systolic function is normal with, an EF between 60 - 65 %. The right ventricle is normal in size. Normal LA size by volume 22+/-6 ml/m2. The right atrium is normal in size. Interatrial and interventricular septum intact. The aortic valve is trileaflet and appears structurally normal. Mild mitral regurgitation is present. Mild tricuspid regurgitation present. There is mild to moderate pulmonary hypertension. The right ventricular systolic pressure, as measured by Doppler, is 46.41mmHg. Trace/mild (physiologic) pulmonic regurgitation. No vegatation noted The aortic root size is normal. The inferior vena cava is dilated with poor inspiratory collapse which is consistent with estimated r ight atrial pressure of 15 mmHg. There is no pericardial effusion. CONCLUSIONS -------- 1. The left ventricular size is normal. 2. There is borderline concentric left ventricular hypertrophy. 3. Overall left ventricular systolic function is normal with, an EF between 60 - 65 %. 4. Mild mitral regurgitation is present. 5. Mild tricuspid regurgitation present. 6. There is mild to moderate pulmonary hypertension. 7. The right ventricular systolic pressure, as measured by Doppler, is 46.41mmHg. 8. Trace/mild (physiologic) pulmonic regurgitation. 9. No vegatation noted 10. The inferior vena cava is dilated with poor inspiratory collapse which is consistent with estimat ed right atrial pressure of 15 mmHg. 11. There is no pericardial effusion. METEOROLOGICAL ENGINEER: Poly Cancino RDCS
[2021-02-03] MEDS: polyethylene glycoL 3350 17 GM POWD.PACK PO SCH (08:33)
[2021-02-03] MEDS: PANTOPRAZOLE 40 MG TABLET PO SCH (08:40)
[2021-02-03] MEDS: CYCLOBENZAPRINE 10 MG TAB PO SCH ×3 (08:40→21:59)
[2021-02-03] MEDS: HEPARIN SODIUM,PORCINE/PF 5,000 UNIT/0.5 ML SYRINGE SQ SCH ×2 (08:40→21:59)
[2021-02-03] MEDS: GABAPENTIN 300 MG CAP PO SCH ×3 (08:40→21:59)
[2021-02-03] MEDS: HYDROmorphone 1 MG/ML 1 ML SYRINGE IVP PRN ×4 (08:55→21:59)
[2021-02-03 09:22] LABS: Erythrocyte Sedimentation Rate 20 mm/hr (0-20)
--- NOTE | 2021-02-03 11:27 | IR ---
PICC LINE PLACEMENT: HISTORY: Infection requiring long-term antibiotic therapy PROCEDURE: Ultrasound and fluoroscopic guidance of PICC line placement. COMPLICATIONS: None ANESTHESIA: 1. 1% Lidocaine locally. FINDINGS/TECHNIQUE: The procedure was explained to the patient. The risks, complications, benefits and alternatives were discussed and any questions were answered. Informed consent was obtained. The patient was placed supine on the fluoroscopic table and prepped and draped in the usual sterile fash ion. Utilizing a 21 gauge needle and sonographic and fluoroscopic guidance, access in the left basi lic vein was achieved and there is placement of a 0.018 guidewire. The vein is patent. A 5-Fr zavala th was placed over the guidewire. The guidewire and dilator were removed and a 5-F. Double lumen PIC C line was placed through the sheath with the tip at the level of the SVC. The sheath was removed, t he catheter was flushed and sutured into position. The patient was stable throughout the procedure a nd remained stable upon discharge from the Department of Radiology. The vein puncture was patent under ultrasound. A feliz scale image was obtained to document patency of the vein punctured. All elements of the maximal barrier technique were utilized. FLUOROSCOPY TIME: 0.2 minutes and one image submitted. IMPRESSION: Successful PICC double lumen line placement under ultrasound and fluoroscopic guidance.
[2021-02-03 11:42] LABS: Glucose,Whole Blood 117 mg/dL (75-99)
[2021-02-03] MEDS: LACTATED RINGERS 1,000 ML IV SCH (14:19)
[2021-02-03 17:23] LABS: Glucose,Whole Blood 140 mg/dL (75-99)
--- NOTE | 2021-02-03 17:30 | PN ---
PROGRESS NOTE DATE OF SERVICE: 02/03/2021. CHIEF COMPLAINT: Discitis, osteomyelitis of the cervical spine. HISTORY OF PRESENT ILLNESS: This lady is doing fairly well. She has been afebrile. It is noticed that her white count was elevated slightly. PHYSICAL EXAMINATION: Color is good. Vital signs: Normal. Chest is clear. Cardiac exam is normal. IMPRESSION: Discitis and osteomyelitis, cervical spine status post fusion. PLAN: Continue to follow with Surgery and Infectious Disease. She eventually will receive a PICC line for long-term IV antibiotics and likely be transferred to a rehab facility fairly soon. MMODL / IJN: [id number] /
[2021-02-03 20:50] LABS: Glucose,Whole Blood 132 mg/dL (75-99)
[2021-02-04] MEDS: DEXAMETHASONE SOD PHOSPHATE 4 MG/ML 1 ML VIAL IV SCH ×4 (03:38→15:07)
[2021-02-04] MEDS: HYDROmorphone 1 MG/ML 1 ML SYRINGE IVP PRN ×2 (05:48→10:33)
--- NOTE | 2021-02-04 05:49 | P.CONS ---
History of Present Illness - Chief Complaint Walking difficulty - History of Present Illness I had the opportunity to see patient for inpatient rehab consultation with regard to walking difficulty. Patient admitted to [facility] January 26 history of recent right femur fracture infection now with C-spine injury. Under went C5 corpectomy with C4-C7 fusion in January 27. However required follow-up operation January 30 with C2-[address] Mcnair who notes history of IV drug abuse. Seen by Dr. Barriga for pulmonary management. His started therapies. PT reports minimal moderate assistance for bed mobility and declined ambulation. OT reports ambulated 2 feet. OT further reports no assistance for upper dressing and max assist for lower dressing and moderate assistance for bathing. 2 person moderate assistance for toileting and toileting transfer. Previous functional history as elicited from patient: 36-year-old right-handed white female who is and currently homeless and unemployed. Previously independent including inability to cook, laundry, driving, standing shower. Was using crutches for gait but has a cane, walker and wheelchair. PCP Dr. Sarmiento. Review of Systems Review of systems: ENT: Denies sneezes or discharge. Eyes: Denies discharge or photophobia. Cardiac: Denies chest pain or palpitation. Pulmonary: Denies cough or shortness of breath. Breast: Denies discharge or lumps. Gastrointestinal: Denies nausea, emesis, constipation, diarrhea. Genitourinary: Denies discharge or frequency. Musculoskeletal: Discomfort right thigh and C-spine. Neurologic: Denies motor or sensory change. Endocrine: Denies shakes or sweats. Oncology: Denies cancers. Dermatologic: Denies rash, itching, pruritus. ALLERGY/immunology: Denies sneezes, rashes. Past Medical History Additional Past Medical History / Comment(s): back pain, knee pain, broken femur on right---surgery May 2020 Dr Almaraz, " patient was told she had scarring in lungs" History of Any Multi-Drug Resistant Organisms: None Reported Past Surgical History: Cholecystectomy, Tonsillectomy, Tubal Ligation Additional Past Surgical History / Comment(s): right femur fracture with surgery May 2020 Past Anesthesia/Blood Transfusion Reactions: No Reported Reaction Past Psychological History: No Psychological Hx Reported Smoking Status: Current every day smoker Past Alcohol Use History: Occasional Past Drug Use History: Heroin, Methamphetamine - Past Family History Mother Additional Family Medical History / Comment(s): cirrhosis of the liver Medications and Allergies Home Medications Medication Instructions Recorded Confirmed Type Ibuprofen [Motrin] 800 mg PO Q8HR PRN #30 tab 03/03/15 01/26/21 Rx Allergies Allergy/AdvReac Type Severity Reaction Status Date / Time No Known Allergies Allergy Verified 01/26/21 23:01 Physical Exam Vitals: Vital Signs Temp Pulse Resp BP Pulse Ox 02/04/21 04:49 97.9 F 76 16 134/88 99 02/03/21 19:19 97.2 F L 111 H 16 138/88 97 02/03/21 11:56 98.4 F 99 19 117/79 98 Intake and Output 02/03/21 02/03/21 02/04/21 14:59 22:59 06:59 Intake Total 960 1400 Output Total 1040 800 Balance -80 600 Intake: IV 140 Lactated Ringers 1,000 ml 140 @ 20 mls/hr IV .Q24H [facility] Rx#:[id number] Intake, IV Titration 100 Amount ceFAZolin 2 gm In Sodium 100 Chloride 0.9% 50 ml @ 100 mls/hr IVPB Q8HR [facility] Rx# :[id number] Oral 960 1160 Output: Drainage 40 Neck 40 Urine 1000 800 Other: Voiding Method Bedside Commode External Catheter # Voids 1 3 1 # Bowel Movements 1 Skin: Good color, texture, turgor. General: Overweight build and comfortable appearance. Head: Normocephalic, atraumatic. Eyes: Symmetric. Pupils equal round. Ears: Symmetric. Hearing within normal limits. Mouth: Clear. Neck: Wearing rigid collar. Cardiac: Regular rate and rhythm. Lungs: Clear anteriorly and posteriorly. Abdomen: Soft active nontender. Extremities: Normal tone. Neurological: Mental status: Alert, cooperative, pleasant. Cranial nerves: Symmetric facial tone and trapezius. Motor: Normal strength and isolation all 4 limbs. Sensation: Intact throughout. DTRs: Symmetric and equal throughout. Mobility: Sits and stands with 1 person physical assistance. Results CBC & Chem 7: 02/03/21 06:55 02/03/21 06:55 Labs: Abnormal Lab Results - Last 24 Hours (Table) 02/03/21 02/03/21 02/03/21 Range/Units 06:55 06:55 07:13 WBC 16.1 H (3.8-10.6) k/uL Hgb 10.9 L (11.4-16.0) gm/dL Hct 33.3 L (34.0-46.0) % MCV 77.1 L (80.0-100.0) fL RDW 17.4 H (11.5-15.5) % Sodium 136 L (137-145) mmol/L Carbon Dioxide 32 H (22-30) mmol/L BUN 22 H (7-17) mg/dL Creatinine 0.37 L (0.52-1.04) mg/dL Glucose 109 H (74-99) mg/dL POC Glucose (mg/dL) 110 H (75-99) mg/dL 02/03/21 02/03/21 02/03/21 Range/Units 11:39 17:19 20:48 WBC (3.8-10.6) k/uL Hgb (11.4-16.0) gm/dL Hct (34.0-46.0) % MCV (80.0-100.0) fL RDW (11.5-15.5) % Sodium (137-145) mmol/L Carbon Dioxide (22-30) mmol/L BUN (7-17) mg/dL Creatinine (0.52-1.04) mg/dL Glucose (74-99) mg/dL POC Glucose (mg/dL) 117 H 140 H 132 H (75-99) mg/dL Assessment and Plan (1) Spinal cord compression Current Visit: Yes Status: Acute Code(s): G95.20 - UNSPECIFIED CORD COMPRESSION SNOMED Code(s): 08106980 Plan: Impression: 1. Walking difficulty. 2. Cervical spine disorder with discitis, osteomyelitis and cord compression status post fusion. 3. Recent femur fracture still apparently ongoing infection. 4. History drug abuse. Comments and plan: At this time PT and OT are ongoing. Patient unable to fully participate with therapies. History of medical noncompliance as well as drug abuse which indicates guarded prognosis for pain control and inpatient rehab. Patient may benefit from a slower paced program at this time.
--- NOTE | 2021-02-04 06:09 | PN ---
PROGRESS NOTE DATE OF SERVICE: 02/03/2021 REASON FOR FOLLOWUP: Cervical paraspinal abscess MSSA. INTERVAL HISTORY: Patient is afebrile. The patient is breathing comfortably. Denies any worsening neck pain. No chest pain, shortness of breath or cough. No abdominal pain or diarrhea. PHYSICAL EXAMINATION: Blood pressure 132/88 with a pulse of 111, temperature 97.2. She is 97% on room air. General description is a middle-aged female lying in bed in no distress. Respiratory system: Unlabored breathing. Clear to auscultation anteriorly. Heart S1, S2. Regular rate and rhythm. Abdomen soft, no tenderness. LABS: Hemoglobin is 10.1, white count 16.2, BUN of 22, creatinine 0.37. Blood culture has been negative. DIAGNOSTIC IMPRESSION AND PLAN: Patient with cervical paraspinal abscess status post surgical drainage. Blood culture has been negative. Patient on cefazolin. White count slight worsening, possibly related to steroid and we will monitor closely. MMODL / IJN: [id number] /
[2021-02-04 06:53] LABS: Glucose,Whole Blood 141 mg/dL (75-99)
[2021-02-04] MEDS: CYCLOBENZAPRINE 10 MG TAB PO SCH ×3 (07:59→21:08)
[2021-02-04] MEDS: PANTOPRAZOLE 40 MG TABLET PO SCH (07:59)
[2021-02-04] MEDS: GABAPENTIN 300 MG CAP PO SCH ×3 (07:59→21:08)
[2021-02-04] MEDS: INSULIN ASPART (NovoLOG) 100 UNIT/ML VIAL SQ SCH ×4 (08:00→21:53)
[2021-02-04] MEDS: HEPARIN SODIUM,PORCINE/PF 5,000 UNIT/0.5 ML SYRINGE SQ SCH ×2 (08:01→21:08)
[2021-02-04] MEDS: polyethylene glycoL 3350 17 GM POWD.PACK PO SCH (08:01)
--- NOTE | 2021-02-04 10:10 | P.PN ---
Subjective Progress Note Date: 02/04/21 Principal diagnosis: C5-6 osteodiscitis with severe cervical deformity, JIMI B, Pt s/e this AM. Doing better. No other issues. Pain is controlled. She is eating and has a good appetite today. Denies any f/c/sob/cp at this time. States arms are better. Objective - Vital Signs Vital signs: Vital Signs Temp 97.9 F 02/04/21 04:49 Pulse 76 02/04/21 04:49 Resp 16 02/04/21 04:49 BP 134/88 02/04/21 04:49 Pulse Ox 99 02/04/21 04:49 Intake & Output 02/03/21 02/04/21 02/04/21 18:59 06:59 18:59 Intake Total 960 1400 Output Total 1040 800 Balance -80 600 Intake: IV 140 Lactated Ringers 1,000 ml 140 @ 20 mls/hr IV .Q24H [facility] Rx#:[id number] Intake, IV Titration 100 Amount ceFAZolin 2 gm In Sodium 100 Chloride 0.9% 50 ml @ 100 mls/hr IVPB Q8HR [facility] Rx# :[id number] Oral 960 1160 Output: Drainage 40 Neck 40 Urine 1000 800 Other: Voiding Method Bedside Commode External Catheter # Voids 3 1 1 # Bowel Movements 1 1 ABP, PAP, CO, CI - Last Documented Arterial Blood Pressure 135/68 - Exam Exam repeated. Changes noted below. Patient is alert and oriented 3 appears well-nourished well-hydrated is in no acute distress. They does not appear septic. On exam the patient has no tenderness to palpation of her thoracic or lumbar spine. There is no edema or ballottement sign. Lower extremities with 4 out of 5 strength in all major muscle groups Upper extremities show 4/5 strength in all major muscle groups. She has some intrinsic weakness still and exchange architect strength weakness. Some improving. She was walking yesterday with walker and help. She did shower yesterday as well. There is FROM that is painless of the b/l UE and LE in all major joints. She does have limited ROM of her R knee secondary to her previous surgeies. They are intact to light touch sensation in L2 to S1 nerve distribution. 2/4 DTR all, brisk Patient has palpable dorsalis pedis was posterior tibial pulses. Palpable radial and ulnar pulses bilaterally Compartments are soft and compressible. Patient shows a negative Homans, Villafuerte's improving mildly positive bilaterally No more clonus at this time Babinski is negative and downgoing No tensioning signs. Cranial nerves II through XII are grossly intact. Overall alignment is well-maintained in the sagittal coronal planes. Incisions are clean dry and intact drains are in place anterior removed. Anterior incision doing well. Posterior incision and wound healing well drain in place still. - Labs CBC & Chem 7: 02/03/21 06:55 02/03/21 06:55 Labs: Abnormal Lab Results - Last 24 Hours (Table) 02/03/21 02/03/21 02/03/21 Range/Units 11:39 17:19 20:48 POC Glucose (mg/dL) 117 H 140 H 132 H (75-99) mg/dL 02/04/21 Range/Units 06:51 POC Glucose (mg/dL) 141 H (75-99) mg/dL Assessment and Plan Assessment: 1. 36 yo female with C5-6 osteodiscitis with severe kyphotic deformity, severe stenosis and progressive myelopathy POD8 C5 and C6 corpectomy with arthrodesis C4-7. POD5 C2-T1 decompression and fusion 2. s/p ORIF femur with revision and infection 3. IVDA 4. Complex medical patient Plan: -Appreciate technical solutions consultant and team management. -Activity: Ambulate QID, OOB all meals, up and about, limit lifting bending twisting to less than 5 lbs. Use walker or cane if needed for stability. -Daily PT/OT, increase ambulation strength and balance. -Rigid cervical collar at all times -Work on getting up today and ambulating -Pain control: Regiment revamp -IV tylenol CIARAN 1000 q6 -Oxy IR 5-10 mg q4 hrs pain scale 0-5 and >5 respectively -Oxy ER 10 mg q12 -Flexeril 10 CI[facility] TID -Valium 5 mg PRN anxiety -Dilaudid 1 mg q3 hrs breakthrough pain -Meds: reviewed -GI ppx: senna, Miralax -KATLYN garcia per protocol -DVT PPX: OK to restart Heparin tonight -Hygiene: Maintain proper hygiene, may shower daily as long as she has help. -Encourage IS 10x/hr -PICC line inserted yesterday -Dispo: Ortho spine stable for [facility]
[2021-02-04 11:55] LABS: Glucose,Whole Blood 150 mg/dL (75-99)
[2021-02-04] MEDS: LACTATED RINGERS 1,000 ML IV SCH (13:57)
[2021-02-04 17:05] LABS: Glucose,Whole Blood 146 mg/dL (75-99)
--- NOTE | 2021-02-04 17:19 | PN ---
PROGRESS NOTE DATE OF SERVICE: 02/04/2021 INTERVAL HISTORY: The patient is currently afebrile. The patient is feeling better overall. Denies having any chest pain, shortness of breath, cough, abdominal pain or diarrhea. PHYSICAL EXAMINATION: Blood pressure 120/70 with a pulse of 100, temperature 98.2. The patient is a middle- aged female lying in in no distress. Respiratory system unlabored breathing. Clear to auscultation anteriorly. Heart S1, S2. Regular rate and rhythm. LABS: No new labs been obtained today. Blood culture remains to be negative. DIAGNOSTIC IMPRESSION: This patient with paraspinal abscess status post drainage of the abscess. Culture positive for MSSA. The patient is covered with cefazolin. Will get PICC line. Plan for 6 weeks of IV antibiotic therapy. Continue supportive care. MMODL / IJN: [id number] /
[2021-02-04] MEDS: diazePAM 5 MG TAB PO PRN (17:56)
--- NOTE | 2021-02-04 19:36 | PN ---
PROGRESS NOTE DATE OF SERVICE: 02/04/2021. CHIEF COMPLAINT: Osteomyelitis and diskitis of the cervical spine. HISTORY OF PRESENT ILLNESS: This lady is doing well. She is starting to get up and about. Strength in both the arms and legs is improving. She has had no fever or chills. PHYSICAL EXAMINATION: Chest is clear. Cardiac exam is normal. Abdomen is soft, nontender. IMPRESSION: 1. Diskitis and osteomyelitis of the cervical spine status post fusion from C4 his C7. 2. Probable osteomyelitis right femur. 3. Drug abuse and addiction. PLAN: PICC line has been placed. We are waiting for her to go to a discharge facility. MMODL / IJN: [id number] /
[2021-02-04 20:35] LABS: Glucose,Whole Blood 159 mg/dL (75-99)
[2021-02-05] MEDS: DEXAMETHASONE SOD PHOSPHATE 4 MG/ML 1 ML VIAL IV SCH ×5 (00:09→23:40)
[2021-02-05 07:07] LABS: Glucose,Whole Blood 204 mg/dL (75-99)
[2021-02-05] MEDS: polyethylene glycoL 3350 17 GM POWD.PACK PO SCH (08:56)
[2021-02-05] MEDS: GABAPENTIN 300 MG CAP PO SCH ×3 (08:56→20:23)
[2021-02-05] MEDS: PANTOPRAZOLE 40 MG TABLET PO SCH (08:56)
[2021-02-05] MEDS: CYCLOBENZAPRINE 10 MG TAB PO SCH ×3 (08:56→22:23)
[2021-02-05] MEDS: HEPARIN SODIUM,PORCINE/PF 5,000 UNIT/0.5 ML SYRINGE SQ SCH ×2 (08:58→20:23)
[2021-02-05] MEDS: INSULIN ASPART (NovoLOG) 100 UNIT/ML VIAL SQ SCH ×4 (08:59→20:23)
[2021-02-05 12:11] LABS: Glucose,Whole Blood 112 mg/dL (75-99)
--- NOTE | 2021-02-05 13:18 | P.PN ---
Subjective Progress Note Date: 02/05/21 Principal diagnosis: C5-6 osteodiscitis with severe cervical deformity, JIMI B, Patient was consented bedside, she is resting comfortably in her hospital chair. Her ligaments and was available today also to examine the patient. She is doing very well time. She continues to have no fevers or chills. She denies any shortness of breath, chest pain or nausea or vomiting. Objective - Vital Signs Vital signs: Vital Signs Temp 97.5 F L 02/05/21 11:10 Pulse 112 H 02/05/21 11:10 Resp 16 02/05/21 11:10 BP 108/66 02/05/21 11:10 Pulse Ox 97 02/05/21 11:10 Intake & Output 02/04/21 02/05/21 02/05/21 18:59 06:59 18:59 Intake Total 480 780 Output Total 800 1000 Balance -320 -220 Intake: Intake, IV Titration 300 Amount Lactated Ringers 1,000 ml 200 @ 20 mls/hr IV .Q24H [facility] Rx#:[id number] ceFAZolin 2 gm In Sodium 100 Chloride 0.9% 50 ml @ 100 mls/hr IVPB Q8HR [facility] Rx# :[id number] Oral 480 480 Output: Urine 800 1000 Other: Voiding Method Bedside Commode Bedside Commode External Catheter External Catheter # Voids 1 1 # Bowel Movements 1 1 ABP, PAP, CO, CI - Last Documented Arterial Blood Pressure 135/68 - Exam Exam repeated. Changes noted below. Patient is alert and oriented 3 appears well-nourished well-hydrated is in no acute distress. They does not appear septic. On exam the patient has no tenderness to palpation of her thoracic or lumbar spine. There is no edema or ballottement sign. Lower extremities with 4 out of 5 strength in all major muscle groups Upper extremities show 4/5 strength in all major muscle groups. 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 Some improving. She was walking yesterday with walker and help. She did shower yesterday as well. There is FROM that is painless of the b/l UE and LE in all major joints. She does have limited ROM of her R knee secondary to her previous surgeies. They are intact to light touch sensation in L2 to S1 nerve distribution. 2/4 DTR all, brisk Patient has palpable dorsalis pedis was posterior tibial pulses. Palpable radial and ulnar pulses bilaterally Compartments are soft and compressible. Patient shows a negative Homans, Villafuerte's improving mildly positive bilaterally No more clonus at this time Babinski is negative and downgoing No tensioning signs. Cranial nerves II through XII are grossly intact. Overall alignment is well-maintained in the sagittal coronal planes. Incisions are clean dry and intact drains are in place anterior removed. Anterior incision doing well. Posterior incision and wound healing well drain in place still. - Labs CBC & Chem 7: 02/03/21 06:55 02/03/21 06:55 Labs: Abnormal Lab Results - Last 24 Hours (Table) 02/04/21 02/04/21 02/05/21 Range/Units 17:03 20:25 07:03 POC Glucose (mg/dL) 146 H 159 H 204 H (75-99) mg/dL 02/05/21 Range/Units 12:05 POC Glucose (mg/dL) 112 H (75-99) mg/dL Assessment and Plan Assessment: POD9 C5 and C6 corpectomy with arthrodesis C4-7. POD6 C2-T1 decompression and fusion 2. s/p ORIF femur with revision and infection 3. IVDA 4. Complex medical patient Plan: Pain control, continue with current medications. We'll likely discuss oxycodone dose GI and DVT prophylaxis, continue with current medication Wound care was discussed with the patient Bracing instructions were discussed, prescription for pads for the aspirin c- collar were prescribed Compression stockings were also prescribed PICC line is in place, continuing the antibiotics, infectious disease recommendations appreciated Other medical specialty recommendations Discharge planning: An orthopedic standpoint the patient is stable for discharge, waiting on rehab placement Time with Patient: Less than 30
--- NOTE | 2021-02-05 13:30 | PN ---
PROGRESS NOTE DATE OF SERVICE: 02/05/2021 REASON FOR FOLLOWUP: Paraspinal abscess MSSA. INTERVAL HISTORY: The patient is currently afebrile. The patient is feeling better, breathing comfortably. Overall pain and discomfort to the neck and spine area has improved. Denies any chest pain, shortness of breath or cough. No abdominal pain. No diarrhea. PHYSICAL EXAMINATION: Blood pressure is 115/75, pulse of 90, temperature 97.9. She is 97% on room air. General description is a middle-aged female up in the chair in no distress. Respiratory system: Unlabored breathing. Clear to auscultation anteriorly. Heart: S1, S2. Regular rate and rhythm. Abdomen: Soft. No tenderness. LABS: No new labs have been obtained today. Blood culture has been negative. DIAGNOSTIC IMPRESSION AND PLAN: Patient with right paraspinal abscess in this patient who is status post extensive surgery. The patient is status post C5-6 corpectomy with arthrodesis C4-C7 and C2-T1 decompression and fusion. Local culture with MSSA. Blood culture negative. Patient to continue cefazolin 2 grams q.8 hours for total of 6 weeks with weekly monitoring of inflammatory markers. The patient's sed rate was normal to begin with at 20, CRP was mildly elevated at 4.4 down to normal already. Those will be monitored in the outpatient setting. Currently waiting for placement. MMODL / IJN: [id number] /
[2021-02-05] MEDS: diazePAM 5 MG TAB PO PRN (15:30)
[2021-02-05 17:02] LABS: Glucose,Whole Blood 138 mg/dL (75-99)
[2021-02-05] MEDS: LACTATED RINGERS 1,000 ML IV SCH (17:05)
--- NOTE | 2021-02-05 19:41 | PN ---
PROGRESS NOTE DATE OF SERVICE: 02/05/2021 CHIEF COMPLAINT: Status post incision and drainage of cervical spine diskitis and abscess with fusion. HISTORY OF PRESENT ILLNESS: This lady continues to improve and do better. She is currently continuing on IV antibiotics and will be on a long-term course. She is awaiting discharge to a rehab facility. PHYSICAL EXAMINATION: She is awake, alert, oriented. Color is good. Chest is clear. Cardiac exam is normal. Abdomen is soft. IMPRESSION: Status post incision and drainage and fusion of cervical spine for diskitis and abscess. PLAN: No change in her program at this time and await her discharge plan. MMODL / IJN: [id number] /
[2021-02-05 20:04] LABS: Glucose,Whole Blood 142 mg/dL (75-99)
[2021-02-06] MEDS: DEXAMETHASONE SOD PHOSPHATE 4 MG/ML 1 ML VIAL IV SCH ×4 (06:24→23:49)
[2021-02-06 06:54] LABS: Glucose,Whole Blood 123 mg/dL (75-99)
[2021-02-06] MEDS: INSULIN ASPART (NovoLOG) 100 UNIT/ML VIAL SQ SCH ×4 (07:09→22:11)
[2021-02-06] MEDS: GABAPENTIN 300 MG CAP PO SCH ×3 (08:49→22:11)
[2021-02-06] MEDS: CYCLOBENZAPRINE 10 MG TAB PO SCH ×3 (08:49→22:10)
[2021-02-06] MEDS: PANTOPRAZOLE 40 MG TABLET PO SCH (08:49)
[2021-02-06] MEDS: polyethylene glycoL 3350 17 GM POWD.PACK PO SCH (08:49)
[2021-02-06] MEDS: HEPARIN SODIUM,PORCINE/PF 5,000 UNIT/0.5 ML SYRINGE SQ SCH ×2 (08:49→22:11)
[2021-02-06 10:53] LABS: Anisocytosis Slight; HCT 31.4 % (34.0-46.0); HGB 9.8 gm/dL (11.4-16.0); Hypochromasia Slight; MCH 24.8 pg (25.0-35.0); MCHC 31.1 g/dL (31.0-37.0); MCV 79.6 fL (80.0-100.0); Mean Platelet Volume 7.3; Microcytosis Slight; Platelet Count 363 k/uL (150-450); RBC 3.95 m/uL (3.80-5.40); RDW 17.7 % (11.5-15.5)
[2021-02-06 11:43] LABS: Glucose,Whole Blood 145 mg/dL (75-99)
[2021-02-06 11:54] LABS: Band Neutrophils % 3 %; Lymphocytes # (M) 0.74 k/uL (1.0-4.8); Metamyelocytes # (M) 0.37 k/uL (0); Metamyelocytes % 1 %; Monocytes # (M) 0.37 k/uL (0-1.0); Neutrophils % (M) 95 %; Nucleated Red Blood Cells 0 /100 WBC (0-0); Total Cells Counted 200
[2021-02-06] MEDS: LACTATED RINGERS 1,000 ML IV SCH (12:50)
--- NOTE | 2021-02-06 13:41 | PN ---
PROGRESS NOTE DATE OF SERVICE: 02/06/2021. CHIEF COMPLAINT: Status post cervical spine fusion for bacterial diskitis, osteomyelitis, and paraspinous abscess. HISTORY OF PRESENT ILLNESS: This lady continues improved. Neurologically she is getting better. She is up and ambulating. She is afebrile. PHYSICAL EXAMINATION: Color is good. Chest is clear. Cardiac exam is normal and the. Abdomen is soft. IMPRESSION: 1. Status post cervical spine fusion from C4-C7 for diskitis, osteomyelitis, and paraspinous abscess. 2. Substance abuse. PLAN: Continue with IV antibiotics and we are awaiting discharge location after which she would be cleared to go. MMODL / IJN: [id number] /
--- NOTE | 2021-02-06 14:58 | P.PN ---
Subjective Progress Note Date: 02/06/21 Principal diagnosis: C5-6 osteodiscitis with severe cervical deformity, JIMI B, Pt s/e. No issues overnight. Continues to improve with pain as well as with sensation and motor of all 4 ext. She has been up and about. She has been ambulating with walker. No f/c/sob/cp. Objective - Vital Signs Vital signs: Vital Signs Temp 98.0 F 02/06/21 12:46 Pulse 107 H 02/06/21 12:46 Resp 16 02/06/21 12:46 BP 113/72 02/06/21 12:46 Pulse Ox 95 02/06/21 12:46 Intake & Output 02/05/21 02/06/21 02/06/21 18:59 06:59 18:59 Other: Voiding Method Bedside Commode Bedside Commode Bedside Commode External Catheter External Catheter # Voids 1 # Bowel Movements 1 0 1 ABP, PAP, CO, CI - Last Documented Arterial Blood Pressure 135/68 - Exam Exam repeated. Changes noted below. Patient is alert and oriented 3 appears well-nourished well-hydrated is in no acute distress. They does not appear septic. On exam the patient has no tenderness to palpation of her thoracic or lumbar spine. There is no edema or ballottement sign. Lower extremities with 4 out of 5 strength in all major muscle groups Upper extremities show 4/5 strength in all major muscle groups. She has some intrinsic weakness still and tassel snipper strength weakness. Some improving. She was walking yesterday with walker and help. She did shower yesterday as well. There is FROM that is painless of the b/l UE and LE in all major joints. She does have limited ROM of her R knee secondary to her previous surgeies. They are intact to light touch sensation in L2 to S1 nerve distribution. 2/4 DTR all, brisk Patient has palpable dorsalis pedis was posterior tibial pulses. Palpable radial and ulnar pulses bilaterally Compartments are soft and compressible. Patient shows a negative Homans, Villafuerte's improving mildly positive bilaterally No more clonus at this time Babinski is negative and downgoing No tensioning signs. Cranial nerves II through XII are grossly intact. Overall alignment is well-maintained in the sagittal coronal planes. Incisions are clean dry and intact drains are in place anterior removed. Anterior incision doing well. Posterior incision and wound healing well drain in place still. - Labs CBC & Chem 7: 02/06/21 10:20 02/03/21 06:55 Labs: Abnormal Lab Results - Last 24 Hours (Table) 02/05/21 02/05/21 02/06/21 Range/Units 16:59 20:02 06:52 WBC (3.8-10.6) k/uL Hgb (11.4-16.0) gm/dL Hct (34.0-46.0) % MCV (80.0-100.0) fL MCH (25.0-35.0) pg RDW (11.5-15.5) % Neutrophils # (Manual) (1.3-7.7) k/uL Lymphocytes # (Manual) (1.0-4.8) k/uL Metamyelocytes # (Man) (0) k/uL POC Glucose (mg/dL) 138 H 142 H 123 H (75-99) mg/dL 02/06/21 02/06/21 Range/Units 10:20 11:42 WBC 37.0 H (3.8-10.6) k/uL Hgb 9.8 L (11.4-16.0) gm/dL Hct 31.4 L (34.0-46.0) % MCV 79.6 L (80.0-100.0) fL MCH 24.8 L (25.0-35.0) pg RDW 17.7 H (11.5-15.5) % Neutrophils # (Manual) 36.20 H (1.3-7.7) k/uL Lymphocytes # (Manual) 0.74 L (1.0-4.8) k/uL Metamyelocytes # (Man) 0.37 H (0) k/uL POC Glucose (mg/dL) 145 H (75-99) mg/dL Assessment and Plan Assessment: 1. 36 yo female with C5-6 osteodiscitis with severe kyphotic deformity, severe stenosis and progressive myelopathy POD10 C5 and C6 corpectomy with arthrodesis C4-7. POD7 C2-T1 decompression and fusion 2. s/p ORIF femur with revision and infection 3. IVDA 4. Complex medical patient Plan: -Appreciate staffing consultant and team management. -Activity: Ambulate QID, OOB all meals, up and about, limit lifting bending twisting to less than 5 lbs. Use walker or cane if needed for stability. -Daily PT/OT, increase ambulation strength and balance. -Rigid cervical collar at all times -Work on getting up today and ambulating -Pain control: Regiment revamp -IV tylenol CIARAN 1000 q6 -Oxy IR 5-10 mg q4 hrs pain scale 0-5 and >5 respectively -Oxy ER 10 mg q12 -Flexeril 10 CI[facility]AN TID -Valium 5 mg PRN anxiety -Dilaudid 1 mg q3 hrs breakthrough pain -Meds: reviewed -GI ppx: senna, Miralax -KATLYN garcia per protocol -DVT PPX: OK to restart Heparin tonight -Hygiene: Maintain proper hygiene, may shower daily as long as she has help. -Encourage IS 10x/hr -PICC line inserted yesterday -Dispo: Ortho spine stable for [facility] Due to holiday case management stating she will likely not make it to [facility] until Tuesday next week. They are exploring options however insurance has denied most other facilities.
[2021-02-06] MEDS: DULoxetine HCL 60 MG CAPSULE.DR PO SCH (16:12)
--- NOTE | 2021-02-06 16:39 | PN ---
PROGRESS NOTE DATE OF SERVICE: 02/06/2021 REASON FOR FOLLOWUP: Paraspinal abscess. INTERVAL HISTORY: Patient is afebrile. The patient denies having any chest pain. No shortness of breath. No cough. No abdominal pain. No diarrhea. Overall feeling better. PHYSICAL EXAMINATION: Blood pressure 113/72 with a pulse of 107, temperature 98. She is 95% on room air. General description is a middle-aged female lying in bed in no distress. Respiratory system: Unlabored breathing, clear to auscultation anteriorly. Heart S1, S2. Regular rate and rhythm. Abdomen soft, no tenderness. LABS: White count of 37,000. DIAGNOSTIC IMPRESSION AND PLAN: Patient with MSSA paraspinal abscess, status post surgery x2. Patient seems to have shown clinical improvement. Did have worsening of the white count, more likely secondary to Decadron. Continue cefazolin and monitor clinical course closely. MMODL / IJN: [id number] /
[2021-02-06 17:46] LABS: Glucose,Whole Blood 142 mg/dL (75-99)
[2021-02-06 20:02] LABS: Glucose,Whole Blood 164 mg/dL (75-99)
[2021-02-07] MEDS: DEXAMETHASONE SOD PHOSPHATE 4 MG/ML 1 ML VIAL IV SCH ×2 (05:33→11:04)
[2021-02-07 07:12] LABS: Glucose,Whole Blood 143 mg/dL (75-99)
[2021-02-07] MEDS: INSULIN ASPART (NovoLOG) 100 UNIT/ML VIAL SQ SCH ×4 (08:07→21:56)
[2021-02-07] MEDS: HEPARIN SODIUM,PORCINE/PF 5,000 UNIT/0.5 ML SYRINGE SQ SCH ×2 (08:08→22:01)
[2021-02-07] MEDS: DULoxetine HCL 60 MG CAPSULE.DR PO SCH (08:08)
[2021-02-07] MEDS: CYCLOBENZAPRINE 10 MG TAB PO SCH ×3 (08:08→22:01)
[2021-02-07] MEDS: GABAPENTIN 300 MG CAP PO SCH ×3 (08:08→22:01)
[2021-02-07] MEDS: polyethylene glycoL 3350 17 GM POWD.PACK PO SCH (08:09)
[2021-02-07] MEDS: PANTOPRAZOLE 40 MG TABLET PO SCH (08:09)
[2021-02-07 12:00] LABS: Glucose,Whole Blood 165 mg/dL (75-99)
--- NOTE | 2021-02-07 14:45 | P.PN ---
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 No issues overnight. Continues to improve with pain as well as with sensation and motor of all 4 ext. She has been up and about. She has been ambulating with walker. No f/c/sob/cp. Objective - Vital Signs Vital signs: Vital Signs Temp 98.1 F 02/07/21 12:23 Pulse 123 H 02/07/21 12:23 Resp 19 02/07/21 12:23 BP 117/68 02/07/21 12:23 Pulse Ox 97 02/07/21 12:23 Intake & Output 02/06/21 02/07/21 02/07/21 18:59 06:59 18:59 Intake Total 2140 Balance 2140 Intake: Intake, IV Titration 300 Amount Lactated Ringers 1,000 ml 200 @ 20 mls/hr IV .Q24H [facility] Rx#:[id number] ceFAZolin 2 gm In Sodium 100 Chloride 0.9% 50 ml @ 100 mls/hr IVPB Q8HR CI[facility] Rx# :[id number] Oral 1840 Other: Voiding Method Bedside Commode # Voids 4 1 # Bowel Movements 1 ABP, PAP, CO, CI - Last Documented Arterial Blood Pressure 135/68 - Exam Exam repeated. Stable today. Dressings removed. Incisions are CDI with no drainage, no EEE, minimal TTP. Patient is alert and oriented 3 appears well-nourished well-hydrated is in no acute distress. They does not appear septic. On exam the patient has no tenderness to palpation of her thoracic or lumbar spine. There is no edema or ballottement sign. Lower extremities with 4 out of 5 strength in all major muscle groups Upper extremities show 4/5 strength in all major muscle groups. 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 Some improving. She was walking yesterday with walker and help. She did shower yesterday as well. There is FROM that is painless of the b/l UE and LE in all major joints. She does have limited ROM of her R knee secondary to her previous surgeies. They are intact to light touch sensation in L2 to S1 nerve distribution. 2/4 DTR all, brisk Patient has palpable dorsalis pedis was posterior tibial pulses. Palpable radial and ulnar pulses bilaterally Compartments are soft and compressible. Patient shows a negative Homans, Villafuerte's improving mildly positive bilaterally No more clonus at this time Babinski is negative and downgoing No tensioning signs. Cranial nerves II through XII are grossly intact. Overall alignment is well-maintained in the sagittal coronal planes. Incisions are clean dry and intact drains are in place anterior removed. Anterior incision doing well. Posterior incision and wound healing well drain in place still. - Labs CBC & Chem 7: 02/06/21 10:20 02/03/21 06:55 Labs: Abnormal Lab Results - Last 24 Hours (Table) 02/06/21 02/06/21 02/07/21 Range/Units 17:30 20:00 07:02 POC Glucose (mg/dL) 142 H 164 H 143 H (75-99) mg/dL 02/07/21 Range/Units 11:56 POC Glucose (mg/dL) 165 H (75-99) mg/dL Assessment and Plan Assessment: 1. 36 yo female with C5-6 osteodiscitis with severe kyphotic deformity, severe stenosis and progressive myelopathy POD11 C5 and C6 corpectomy with arthrodesis C4-7. POD8 C2-T1 decompression and fusion 2. s/p ORIF femur with revision and infection 3. IVDA 4. Complex medical patient Plan: -Appreciate consultant electronics and team management. -Activity: Ambulate QID, OOB all meals, up and about, limit lifting bending tw isting to less than 5 lbs. Use walker or cane if needed for stability. -Daily PT/OT, increase ambulation strength and balance. -Rigid cervical collar at all times -Work on getting up today and ambulating -Pain control: Regiment revamp -IV tylenol CIARAN 1000 q6 -Oxy IR 5-10 mg q4 hrs pain scale 0-5 and >5 respectively -Oxy ER 10 mg q12 -Flexeril 10 CIARAN TID -Valium 5 mg PRN anxiety -DC the steroids at this time. -Meds: reviewed -GI ppx: senna, Miralax -DC garcia per protocol -DVT PPX: OK to restart Heparin tonight -Hygiene: Maintain proper hygiene, may shower daily as long as she has help. -Encourage IS 10x/hr -PICC line functional -Dispo: Ortho spine stable for [facility] Due to holiday case management stating she will likely not make it to [facility] until Tuesday next week. They are exploring options however insurance has denied most other facilities.
[2021-02-07] MEDS: LACTATED RINGERS 1,000 ML IV SCH (15:25)
--- NOTE | 2021-02-07 15:44 | P.PN ---
Subjective Progress Note Date: 02/07/21 Principal diagnosis: Status post cervical spine fusion from C4 to C6 for discitis, osteomyelitis and paraspinal abscess Ms. Hood is a 36-year-old white female with a past medical history of polysubstance abuse who presented to the emergency department on 01/27/2020 with a chief complaint of neck pain and bilateral arm weakness. Patient had a fall and sustained fracture of the right femur in May 2020, later on deemed to be pathological due to possible osteomyelitis. But patient did not receive IV antibiotics and subsequently was seen at multiple facilities and leaving AGAINST MEDICAL ADVICE. Eventually patient had an MRI of the cervical/thoracic/lumbar spine showing multiple fractures of cervical spine including C5-C6, discitis and paravertebral abscess of the cervical spine, severe spinal stenosis and thyroid cultures spinal cord edema. Eventually patient was evaluated by orthopedic surgery and she underwent anterior cervical C5-C6 corpectomy and C4 C7 sta bilization by orthopedics. Postop patient was in the ICU for 3-4 days and eventually she was transferred to the medical floors. On 02/07/2021- patient is seen and examined at the bedside. She is comfortably sitting in a chair by the bedside and eating chips with CellCe[employer]. She appears to be no acute distress. Patient states that she has a feeling of tightness around her abdomen, she feels like a tight bandlike sensation. She denies having any abdominal pain nausea vomiting or diarrhea. She states that the strength in both upper extremities is improving. She denies of any worsening neck pain. She denies having any fevers chills or rigors. No chest pain or palpitations. No cough or difficulty in breathing. On reviewing her vitals temperature of 98.3, heart rate between 100s to 120s, respiratory rate 16, blood pressure 120/82, saturating at 98% on room air. Last administration white count of 37, hemoglobin 9.8, platelets 363. Sodium 136, but patient 4.6, chloride 102, bicarb 32, B and 22, creatinine 0.37. Reviewing her medication she is on Tylenol, cefazolin, Flexeril, Valium, Cymbalta, Neurontin, heparin, NovoLog, Zofran, oxycodone, Protonix, MiraLAX, senna. Objective - Vital Signs Vital signs: Vital Signs Temp 98.1 F 02/07/21 05:00 Pulse 126 H 02/07/21 05:00 Resp 16 02/07/21 05:00 BP 124/82 02/07/21 05:00 Pulse Ox 98 02/07/21 05:00 Intake & Output 02/06/21 02/07/21 02/07/21 18:59 06:59 18:59 Intake Total 2140 Balance 2140 Intake: Intake, IV Titration 300 Amount Lactated Ringers 1,000 ml 200 @ 20 mls/hr IV .Q24H [facility] Rx#:[id number] ceFAZolin 2 gm In Sodium 100 Chloride 0.9% 50 ml @ 100 mls/hr IVPB Q8HR [facility] Rx# :[id number] Oral 1840 Other: Voiding Method Bedside Commode # Voids 4 1 # Bowel Movements 1 ABP, PAP, CO, CI - Last Documented Arterial Blood Pressure 135/68 - Exam GENERAL EXAM: Sitting in a chair by the bedside HEAD: Normocephalic/atraumatic. EENT: PERRLA, EOMI, nonicteric, moist mucous membranes NECK:Right neck surgical incisions covered with a surgical dressing, CHEST: Symmetrical chest expansion. LUNGS: Clear throughout no crackles or rhonchi or wheezes CVS: Normal S1 and S2, no S3 gallop. ABDOMEN: Nontender no megaly no rebound no guarding EXTREMITIES: No clubbing edema or cyanosis. MUSCULOSKELETAL: No deformities. Strength seems to be 4/5 bilaterally SKIN: No rashes, patient has multiple areas of need fisher and small scabs on her hands, no open areas no open wounds CENTRAL NERVOUS SYSTEM: Alert and oriented 3, no gross focal neurologic deficit. - Labs CBC & Chem 7: 02/06/21 10:20 02/03/21 06:55 Labs: Abnormal Lab Results - Last 24 Hours (Table) 02/06/21 02/06/21 02/06/21 Range/Units 10:20 11:42 17:30 WBC 37.0 H (3.8-10.6) k/uL Hgb 9.8 L (11.4-16.0) gm/dL Hct 31.4 L (34.0-46.0) % MCV 79.6 L (80.0-100.0) fL MCH 24.8 L (25.0-35.0) pg RDW 17.7 H (11.5-15.5) % Neutrophils # (Manual) 36.20 H (1.3-7.7) k/uL Lymphocytes # (Manual) 0.74 L (1.0-4.8) k/uL Metamyelocytes # (Man) 0.37 H (0) k/uL POC Glucose (mg/dL) 145 H 142 H (75-99) mg/dL 02/06/21 02/07/21 Range/Units 20:00 07:02 WBC (3.8-10.6) k/uL Hgb (11.4-16.0) gm/dL Hct (34.0-46.0) % MCV (80.0-100.0) fL MCH (25.0-35.0) pg RDW (11.5-15.5) % Neutrophils # (Manual) (1.3-7.7) k/uL Lymphocytes # (Manual) (1.0-4.8) k/uL Metamyelocytes # (Man) (0) k/uL POC Glucose (mg/dL) 164 H 143 H (75-99) mg/dL Assessment and Plan Assessment: ASSESSMENT Postoperative day # 11 , C5 and C6 corpectomy and arthrodesis of C4-7 Postoperative day # 8 posterior C2-T1 posteriolateral instrumental fusion, C2 C7 decompressive laminectomy posterior cervical segmental instrumentation Acute progressive myelopathy secondary to C5-C6 osteo discitis and severe kyphotic deformity with severe stenosis Leukocytosis Wound cultures positive for MSSA History of IV drug abuse. History of ORIF femur and revision with infection. PLAN: Patient had elevated white count of 37 , could be secondary to use of Decadron that she is on. Her steroids have been discontinued by orthopedics today. We will repeat CBC for tomorrow morning. On reviewing her vitals she has tachycardia with heart rate between 100s to 120s. But she has been afebrile. We will check TSH and free T4, and telemetry monitoring. We will co natty to follow and monitor the patient closely. Continuing antibiotics in the form of cefazolin as per JAY Chung recommendations. Continue with the rest of her current medication regimen. SCDs for DVT prophylaxis. Further recommendations to follow depending on the progress of the patient.
[2021-02-07 17:12] LABS: Glucose,Whole Blood 149 mg/dL (75-99)
[2021-02-07] MEDS: diazePAM 5 MG TAB PO PRN (20:20)
[2021-02-07 20:29] LABS: Glucose,Whole Blood 115 mg/dL (75-99)
[2021-02-08 06:09] LABS: Anisocytosis Slight; Basophils # (A) 0.1 k/uL (0-0.2); Basophils % (A) 0 %; Eosinophils # (A) 0.1 k/uL (0-0.7); Eosinophils % (A) 1 %; HCT 28.9 % (34.0-46.0); HGB 9.6 gm/dL (11.4-16.0); Lymphocytes # (A) 2.2 k/uL (1.0-4.8); Lymphocytes % (A) 12 %; MCH 26.1 pg (25.0-35.0); MCHC 33.1 g/dL (31.0-37.0); MCV 78.9 fL (80.0-100.0); Mean Platelet Volume 7.4; Microcytosis Slight; Monocytes # (A) 1.1 k/uL (0-1.0); Monocytes % (A) 6 %; Neutrophils # (A) 15.4 k/uL (1.3-7.7); Neutrophils % (A) 81 %; Platelet Count 211 k/uL (150-450); RBC 3.66 m/uL (3.80-5.40); WBC 19.1 k/uL (3.8-10.6)
[2021-02-08 07:28] LABS: Glucose,Whole Blood 111 mg/dL (75-99)
[2021-02-08] MEDS: INSULIN ASPART (NovoLOG) 100 UNIT/ML VIAL SQ SCH (07:45)
--- NOTE | 2021-02-08 07:58 | PN ---
PROGRESS NOTE DATE OF SERVICE: 02/07/2021 REASON FOR FOLLOW UP: Paraspinal abscess, MSSA. INTERVAL HISTORY: The patient is afebrile. The patient has been breathing comfortably. The patient denies having any chest pain. No shortness of breath or cough. Overall neck pain has improved. No vomiting or diarrhea. Currently waiting for placement. PHYSICAL EXAMINATION: Blood pressure 135/86, pulse of 110, temperature 97.6. She is 98% on room air. General description is a middle-aged female up in the bed in no distress. HEENT examination shows cervical incision is currently intact, no drainage. Respiratory system: Unlabored breathing, clear to auscultation anteriorly. Heart S1, S2. Regular rate and rhythm. Abdomen is soft, no tenderness. LABS: No new labs have been obtained. Blood culture has been negative. DIAGNOSTIC IMPRESSION AND PLAN: Patient with cervical paraspinal abscess and also involvement of the thoracic spine in this patient who is status post drainage of the abscess. Cultures have been positive for MSSA. Blood culture has been negative. Patient is clinically responding to cefazolin, to continue. Elevated white count more likely steroid effect and will discuss with the surgeon for possible tapering off the steroids. Inflammatory markers and white count will be repeated. Continue supportive care. MMODL / IJN: [id number] /
[2021-02-08] MEDS: polyethylene glycoL 3350 17 GM POWD.PACK PO SCH (08:38)
[2021-02-08] MEDS: GABAPENTIN 300 MG CAP PO SCH ×3 (08:38→21:58)
[2021-02-08] MEDS: PANTOPRAZOLE 40 MG TABLET PO SCH (08:38)
[2021-02-08] MEDS: CYCLOBENZAPRINE 10 MG TAB PO SCH ×3 (08:38→21:58)
[2021-02-08] MEDS: HEPARIN SODIUM,PORCINE/PF 5,000 UNIT/0.5 ML SYRINGE SQ SCH ×2 (08:38→21:58)
[2021-02-08] MEDS: DULoxetine HCL 60 MG CAPSULE.DR PO SCH (08:38)
[2021-02-08 09:57] LABS: African American GFR (CKD) 154.2 (60.0-200.0); Albumin 3.7 g/dL (3.80-4.90); Albumin/Globulin Ratio 1.42 (1.60-3.17); Anion Gap 9.7 mmol/L (4.00-12.00); BUN/Creat Ratio 72.5 Ratio (12.00-20.00); C Reactive Protein 4.1 mg/dL (0.0-0.8); Calcium 8.7 mg/dL (8.7-10.3); Carbon Dioxide 27.3 mmol/L (21.6-31.8); Globulin 2.6 g/dL (1.6-3.3); Non-African American GFR(CKD) 133.1 (60.0-200.0); Potassium 4.2 mmol/L (3.5-5.5); Total Bilirubin 0.4 mg/dL (0.3-1.2); Total Protein 6.3 g/dL (6.2-8.2)
[2021-02-08] MEDS: diazePAM 5 MG TAB PO PRN (17:32)
[2021-02-08 17:48] LABS: Erythrocyte Sedimentation Rate 31 mm/Hr (0-20)
[2021-02-08] MEDS: METOPROLOL TARTRATE 25 MG TAB PO SCH (17:51)
[2021-02-08] MEDS: LACTATED RINGERS 1,000 ML IV SCH (17:57)
[2021-02-08 18:12] LABS: Glucose,Whole Blood 152 mg/dL (75-99)
[2021-02-08] MEDS ORDERED: METOPROLOL TARTRATE 5 MG/5 ML VIAL IVP STA (18:18)
--- NOTE | 2021-02-08 18:55 | P.EN ---
A- team: Indication: high heart rate Patient seen and examined at bedside. Arrived to room and patient sitting on bedside commode. She was refusing to get off the commode and upset about how many people are in the room. Initial tele 185 and appears to be SVT, once patient was in bed and calm HR went to 165 and appeared to be sinsu rhythm. Nursing requesting metoprolol to slow her heart rate. Vital signs reviewed General: non toxic, no distress, appears at stated age, cervical collar in place Derm: warm, dry Head: atraumatic, normocephalic, symmetric Eyes: EOMI, no lid lag, anicteric sclera Mouth: no lip lesion, mucus membranes moist Cardiovascular: S1S2 tachy, no murmur, positive posterior tibial pulse bilateral, Lungs: Decreased bs bilateral, no rhonchi, no rales , no accessory muscle use psych: Slowed thinking, glassy eyed Sinus tach - stat CBC, BMP, Mg, and UDS - metoprolol IVP X 1 and transfer to [facility]. - CTA pulmonary embolism Notified: Alexis Mccall A Total of 35 minutes of critical care time was spent on the complex care of this patient.
--- NOTE | 2021-02-08 18:59 | PN ---
PROGRESS NOTE DATE OF SERVICE: 02/08/2021 REASON FOR FOLLOWUP: Paraspinal abscess. INTERVAL HISTORY: The patient is afebrile. The patient is breathing comfortably. She has been complaining of pain today and wants some pain medication. Denies any nausea, vomiting. No abdominal pain. No diarrhea. PHYSICAL EXAMINATION: Her blood pressure 113/71 with a pulse of 122, temperature 98.1. She is 99% on room air. General description is a middle-aged female up in the chair in no distress. HEENT examination: Cervical incision is currently intact. No swelling, redness or any drainage. Lungs: Unlabored breathing. Clear to auscultation. Heart: S1, S2. Regular rate and rhythm. Abdomen soft, no tenderness. LABS: Hemoglobin is 9.4, white count 19.1, BUN of 29, creatinine 0.4. CRP 4.1. DIAGNOSTIC IMPRESSION AND PLAN: Patient with cervical and thoraco-paraspinal abscess status post surgical drainage. Culture has been positive for MSSA. Blood culture has been negative. Patient on cefazolin to continue. She is currently waiting for placement and continue supportive care. MMODL / IJN: [id number] /
[2021-02-08 20:42] LABS: Anisocytosis Slight; HCT 30.2 % (34.0-46.0); HGB 10.1 gm/dL (11.4-16.0); MCH 26.5 pg (25.0-35.0); MCHC 33.4 g/dL (31.0-37.0); MCV 79.4 fL (80.0-100.0); Mean Platelet Volume 7.9; Microcytosis Slight; Platelet Count 200 k/uL (150-450); RDW 18.2 % (11.5-15.5); WBC 28.3 k/uL (3.8-10.6)
[2021-02-08 21:01] LABS: African American GFR (CKD) >90 (>60 ml/min/1.73 sqM); Anion Gap 11 mmol/L; Blood Urea Nitrogen 34 mg/dL (7-17); Calcium 8.6 mg/dL (8.4-10.2); Carbon Dioxide 27 mmol/L (22-30); Chloride 96 mmol/L (98-107); Glucose 107 mg/dL (74-99); Magnesium 1.5 mg/dL (1.6-2.3); Non-African American GFR(CKD) >90 (>60 ml/min/1.73 sqM); Potassium 4.5 mmol/L (3.5-5.1); Sodium 134 mmol/L (137-145)
--- NOTE | 2021-02-08 21:02 | CT ---
EXAMINATION TYPE: CT angio chest DATE OF EXAM: 02/08/2021 COMPARISON: None HISTORY: Tachycardia. CT DLP: 282.3 mGycm Automated exposure control for dose reduction was used. CONTRAST: Performed with IV Contrast, patient injected with 100 mL of Isovue 370. Images obtained from the thoracic inlet to the diaphragm with IV contrast. There are 3-D post process ed images. There is irregular 1.5 cm noncalcified nodular density in the superior segment right lower lobe. Ther e is no pleural effusion. Heart size is normal. There is no pericardial effusion. There are some enlarged mediastinal and right bronchial lymph nodes that measure up to 2 cm. Thoracic aorta is intact. There is no aneurysm or dissection. There is normal contrast opacification of the p ulmonary arteries. There are no filling defects. The thoracic spine is intact. There is no compression fracture. Sternum is intact. There is fusion fischer rgery in the cervical spine. IMPRESSION: Irregular nodular infiltrate in the right lower lobe superior segment appears not significantly diffe rent than PET/CT scan of 06/14/2020. Right bronchial lymph nodes unchanged. No evidence of pulmonary embolism.
[2021-02-08] MEDS: MAGNESIUM SULFATE-D5W PMX 1 GM in DEXTROSE/WATER 1 100ML.BAG IVPB SCH ×2 (22:08→23:22)
[2021-02-08] MEDS: ACETAMINOPHEN TAB 500 MG TAB PO PRN (23:30)
--- NOTE | 2021-02-08 23:39 | P.PN ---
Subjective Progress Note Date: 02/08/21 Principal diagnosis: Status post cervical spine fusion from C4 to C6 for discitis, osteomyelitis and paraspinal abscess Ms. Hood is a 36-year-old white female with a past medical history of polysubstance abuse who presented to the emergency department on 01/27/2020 with a chief complaint of neck pain and bilateral arm weakness. Patient had a fall and sustained fracture of the right femur in May 2020, later on deemed to be pathological due to possible osteomyelitis. But patient did not receive IV antibiotics and subsequently was seen at multiple facilities and leaving AGAINST MEDICAL ADVICE. Eventually patient had an MRI of the cervical/thoracic/lumbar spine showing multiple fractures of cervical spine including C5-C6, discitis and paravertebral abscess of the cervical spine, severe spinal stenosis and thyroid cultures spinal cord edema. Eventually patient was evaluated by orthopedic surgery and she underwent anterior cervical C5-C6 corpectomy and C4 C7 sta bilization by orthopedics. Postop patient was in the ICU for 3-4 days and eventually she was transferred to the medical floors. On 02/07/2021- patient is seen and examined at the bedside. She is comfortably sitting in a chair by the bedside and eating chips with salsa. She appears to be no acute distress. Patient states that she has a feeling of tightness around her abdomen, she feels like a tight bandlike sensation. She denies having any abdominal pain nausea vomiting or diarrhea. She states that the strength in both upper extremities is improving. She denies of any worsening neck pain. She denies having any fevers chills or rigors. No chest pain or palpitations. No cough or difficulty in breathing. On reviewing her vitals temperature of 98.3, heart rate between 100s to 120s, respiratory rate 16, blood pressure 120/82, saturating at 98% on room air. Last administration white count of 37, hemoglobin 9.8, platelets 363. Sodium 136, but patient 4.6, chloride 102, bicarb 32, B and 22, creatinine 0.37. On 02/08/2021- patient was seen and examined at the bedside. She is comfortably sitting up in a chair eating her breakfast. She appears to be no acute distress. Patient states she still feels like of tight bandlike sensation around her abdominal area. But denies having any abdominal pain nausea vomiting or diarrhea. Patient denies having any fevers chills or rigors. No worsening of neck pain. Patient denies having any chest pain or palpitations. No cough or difficulty in breathing. No dysuria or hematuria. On reviewing her vitals patient's temperature 98.2, heart rate 110s to 115, respiratory rate 16, blood pressure 109/68 saturating at 99% on room air. On reviewing her labs from this morning white count of 19, hemoglobin 9.6, platelets 211. Sodium 139, potassium 4.2, chloride 102, bicarb 27, BUN 29, creatinine 0.4 TSH 5.090. Reviewing her medication she is on Tylenol, cefazolin, Flexeril, Valium, Cymbalta, Neurontin, heparin, NovoLog, Zofran, oxycodone, Protonix, MiraLAX, senna. Objective - Vital Signs Vital signs: Vital Signs Temp 98.0 F 02/08/21 05:00 Pulse 112 H 02/08/21 05:00 Resp 16 02/08/21 05:00 BP 109/68 02/08/21 05:00 Pulse Ox 99 02/08/21 05:00 Intake & Output 02/07/21 02/08/21 02/08/21 18:59 06:59 18:59 Intake Total 1360 1280 Balance 1360 1280 Intake: IV 240 Lactated Ringers 1,000 ml 240 @ 20 mls/hr IV .Q24H [facility] Rx#:[id number] Intake, IV Titration 100 50 Amount ceFAZolin 2 gm In Sodium 100 50 Chloride 0.9% 50 ml @ 100 mls/hr IVPB Q8HR [facility] Rx# :[id number] Oral 1020 1230 Other: # Voids 4 ABP, PAP, CO, CI - Last Documented Arterial Blood Pressure 135/68 - Exam GENERAL EXAM: Sitting in a chair by the bedside HEENT : Normocephalic/atraumatic, PERRLA, EOMI, nonicteric, moist mucous membranes NECK:Right neck surgical incisions covered with a surgical dressing, CHEST: Symmetrical chest expansion. LUNGS: Clear throughout no crackles or rhonchi or wheezes CVS: Normal S1 and S2, no S3 gallop. ABDOMEN: Nontender no megaly no rebound no guarding EXTREMITIES: No clubbing edema or cyanosis. MUSCULOSKELETAL: No deformities. Strength seems to be 4/5 bilaterally SKIN: No rashes, patient has multiple areas of need fisher and small scabs on her hands, no open areas no open wounds CENTRAL NERVOUS SYSTEM: Alert and oriented 3, no gross focal neurologic deficit. - Labs CBC & Chem 7: 02/08/21 20:22 02/08/21 20:22 Labs: Abnormal Lab Results - Last 24 Hours (Table) 02/07/21 02/07/21 02/07/21 Range/Units 11:56 17:09 20:26 WBC (3.8-10.6) k/uL RBC (3.80-5.40) m/uL Hgb (11.4-16.0) gm/dL Hct (34.0-46.0) % MCV (80.0-100.0) fL RDW (11.5-15.5) % Neutrophils # (1.3-7.7) k/uL Monocytes # (0-1.0) k/uL BUN (9.0-27.0) mg/dL Creatinine (0.6-1.5) mg/dL BUN/Creatinine Ratio (12.00-20.00) Ratio Glucose (70-110) mg/dL POC Glucose (mg/dL) 165 H 149 H 115 H (75-99) mg/dL AST (13-35) U/L ALT (8-44) U/L C-Reactive Protein (0.0-0.8) mg/dL Albumin (3.80-4.90) g/dL Albumin/Globulin Ratio (1.60-3.17) g/dL 02/08/21 02/08/21 02/08/21 Range/Units 05:26 05:26 07:26 WBC 19.1 H (3.8-10.6) k/uL RBC 3.66 L (3.80-5.40) m/uL Hgb 9.6 L (11.4-16.0) gm/dL Hct 28.9 L (34.0-46.0) % MCV 78.9 L (80.0-100.0) fL RDW 18.0 H (11.5-15.5) % Neutrophils # 15.4 H (1.3-7.7) k/uL Monocytes # 1.1 H (0-1.0) k/uL BUN 29.0 H (9.0-27.0) mg/dL Creatinine 0.4 L (0.6-1.5) mg/dL BUN/Creatinine Ratio 72.50 H (12.00-20.00) Ratio Glucose 138 H (70-110) mg/dL POC Glucose (mg/dL) 111 H (75-99) mg/dL AST 59 H (13-35) U/L ALT 78 H (8-44) U/L C-Reactive Protein 4.1 H (0.0-0.8) mg/dL Albumin 3.70 L (3.80-4.90) g/dL Albumin/Globulin Ratio 1.42 L (1.60-3.17) g/dL Assessment and Plan Assessment: ASSESSMENT Postoperative day # 11 , C5 and C6 corpectomy and arthrodesis of C4-7 Postoperative day # 8 posterior C2-T1 posteriolateral instrumental fusion, C2 C7 decompressive laminectomy posterior cervical segmental instrumentation Acute progressive myelopathy secondary to C5-C6 osteo discitis and severe kyphotic deformity with severe stenosis Leukocytosis Wound cultures positive for MSSA History of IV drug abuse. History of ORIF femur and revision with infection. PLAN: Patient had elevated white count of 37 , could be secondary to use of Decadron that she is on. Her steroids have been discontinued by orthopedics yesterday , her WBC trending down. On reviewing her vitals she has tachycardia with heart rate between 100s to 120s. But she has been afebrile. Continue telemetry monitoring, TSH checked is WNL. We will continue to follow and mon itor the patient closely. Continuing antibiotics in the form of cefazolin as per JAY Chung recommendations. Continue with the rest of her current medication regimen. SCDs for DVT prophylaxis. Later in the afternoon patient heart rate went up to 180 on the monitor car operator. On checking her heart rate it was between 150s to 160s. She was started on Lopressor 25 mg twice daily. She was transferred to the cardiac unit for closer monitoring. CT angio of the chest for PE ordered that was negative for pulmonary embolism. We will consult cardiology and order echocardiogram. Further recommendations depending on the progress of the patient.
[2021-02-09] MEDS: METOPROLOL TARTRATE 25 MG TAB PO SCH ×3 (00:29→20:07)
[2021-02-09 04:34] LABS: Amphetamine Screen,Urine Not Detected (NotDetected); Barbiturate Screen,Urine Not Detected (NotDetected); Benzodiazepines Screen,Urine Detected (NotDetected); Cocaine Screen,Urine Not Detected (NotDetected); Methadone Screen, Urine Not Detected (NotDetected); Opiate Screen,Urine Not Detected (NotDetected); Oxycodone Screen, Urine Detected (NotDetected); Phencyclidine Screen,Urine Not Detected (NotDetected); Tricyclic Antidepressant,Urine Not Detected (NotDetected); Urn Cannabinoid Scrn Not Detected (NotDetected)
[2021-02-09] MEDS: PANTOPRAZOLE 40 MG TABLET PO SCH (06:36)
[2021-02-09 07:02] LABS: Anisocytosis Slight; Basophils % (A) 0 %; Eosinophils # (A) 0.2 k/uL (0-0.7); Eosinophils % (A) 1 %; HCT 28.3 % (34.0-46.0); HGB 9.6 gm/dL (11.4-16.0); Lymphocytes # (A) 2.3 k/uL (1.0-4.8); Lymphocytes % (A) 11 %; MCH 26.4 pg (25.0-35.0); MCHC 33.8 g/dL (31.0-37.0); MCV 78.2 fL (80.0-100.0); Mean Platelet Volume 7.6; Microcytosis Slight; Monocytes # (A) 0.8 k/uL (0-1.0); Monocytes % (A) 4 %; Neutrophils # (A) 17.4 k/uL (1.3-7.7); Neutrophils % (A) 83 %; Platelet Count 186 k/uL (150-450); RBC 3.62 m/uL (3.80-5.40); RDW 18.3 % (11.5-15.5); WBC 20.8 k/uL (3.8-10.6)
[2021-02-09 07:21] LABS: African American GFR (CKD) >90 (>60 ml/min/1.73 sqM); Anion Gap 2 mmol/L; Blood Urea Nitrogen 21 mg/dL (7-17); C Reactive Protein 7.3 mg/dL (<1.0); Calcium 8.8 mg/dL (8.4-10.2); Carbon Dioxide 34 mmol/L (22-30); Chloride 100 mmol/L (98-107); Glucose 98 mg/dL (74-99); Non-African American GFR(CKD) >90 (>60 ml/min/1.73 sqM); Potassium 4.1 mmol/L (3.5-5.1); Sodium 136 mmol/L (137-145)
[2021-02-09] MEDS: DULoxetine HCL 60 MG CAPSULE.DR PO SCH (10:20)
[2021-02-09] MEDS: CYCLOBENZAPRINE 10 MG TAB PO SCH ×3 (10:21→21:42)
[2021-02-09] MEDS: GABAPENTIN 300 MG CAP PO SCH ×3 (10:22→21:42)
[2021-02-09] MEDS: HEPARIN SODIUM,PORCINE/PF 5,000 UNIT/0.5 ML SYRINGE SQ SCH ×2 (10:23→21:41)
[2021-02-09] MEDS: polyethylene glycoL 3350 17 GM POWD.PACK PO SCH (10:23)
[2021-02-09 10:35] LABS: Appearance,Urine Cloudy (Clear); Bacteria,Urine Rare /hpf; Bilirubin,Urine Negative (Negative); Blood,Urine Moderate (Negative); Color,Urine Light Yellow; Glucose,Urine (UA) Negative (Negative); Ketones,Urine Negative (Negative); Leukocyte Esterase,Urine Large (Negative); Mucus,Urine Rare /hpf; Nitrite,Urine Negative (Negative); Protein,Urine Negative (Negative); RBC,Urine 20 /hpf (0-5); Specific Gravity,Urine 1.013 (1.001-1.035); Squamous Epithelial Cell,Urine 1 /hpf (0-4); Urobilinogen,Urine <2.0 mg/dL (<2.0); WBC,Urine 53 /hpf (0-5)
--- NOTE | 2021-02-09 10:47 | ECHOF ---
Referral Reason:Tachycardia MEASUREMENTS -------- HEIGHT: 170.2 cm WEIGHT: 90.3 kg BP: 99/61 RVIDd: 3.1 cm (< 3.3) IVSd: 1.1 cm (0.6 - 1.1) LVIDd: 4.7 cm (3.9 - 5.3) LVPWd: 1.2 cm (0.6 - 1.1) IVSs: 1.8 cm LVIDs: 2.8 cm LVPWs: 1.5 cm LA Diam: 3.0 cm (2.7 - 3.8) LAESV Index (A-L): 22.53 ml/m Ao Diam: 3.4 cm (2.0 - 3.7) AV Cusp: 2.2 cm (1.5 - 2.6) MV EXCURSION: 20.824 mm (> 18.000) MV EF SLOPE: 129 mm/s (70 - 150) EPSS: 0.8 cm MV E Oscar: 1.21 m/s MV DecT: 171 ms MV A Oscar: 1.00 m/s MV E/A Ratio: 1.20 RAP: 5.00 mmHg RVSP: 38.20 mmHg FINDINGS -------- Sinus rhythm. Resting tachycardia (HR>100bpm). This was a technically adequate study. The left ventricular size is normal. There is borderline concentric left ventricular hypertrophy. Overall left ventricular systolic function is normal with, an EF between 55 - 60 %. The diastolic filling pattern is normal for the age of the patient 10.41. The right ventricle is normal in size. Normal LA size by volume 22+/-6 ml/m2. The right atrial size is normal. Interatrial and interventricular septum intact. The aortic valve is trileaflet, and appears structurally normal. No aortic stenosis or regurgitation. The mitral valve is normal. There is trace to mild mitral regurgitation. The tricuspid valve appears structurally normal. Mild tricuspid regurgitation present. There is m ild pulmonary hypertension. The right ventricular systolic pressure, as measured by Doppler, is 38. 20mmHg. Trace/mild (physiologic) pulmonic regurgitation. The aortic root size is normal. Normal inferior vena cava with normal inspiratory collapse consistent with estimated right atrial pre ssure of 5 mmHg. There is no pericardial effusion. CONCLUSIONS -------- 1. There is borderline concentric left ventricular hypertrophy. 2. Overall left ventricular systolic function is normal with, an EF between 55 - 60 %. 3. Normal LA size by volume 22+/-6 ml/m2. 4. The aortic valve is trileaflet, and appears structurally normal. No aortic stenosis or regurgitati on. 5. There is trace to mild mitral regurgitation. 6. Mild tricuspid regurgitation present. 7. There is mild pulmonary hypertension. 8. Trace/mild (physiologic) pulmonic regurgitation. 9. There is no pericardial effusion. CUSTOMER ENGAGEMENT MANAGER: Poly Cancino RDCS
[2021-02-09 11:52] LABS: ALT 199 U/L (4-34); AST 173 U/L (14-36); African American GFR (CKD) >90 (>60 ml/min/1.73 sqM); Albumin 3.1 g/dL (3.5-5.0); Alkaline Phosphatase 135 U/L (38-126); Anion Gap 3 mmol/L; Blood Urea Nitrogen 22 mg/dL (7-17); Calcium 8.9 mg/dL (8.4-10.2); Carbon Dioxide 32 mmol/L (22-30); Chloride 101 mmol/L (98-107); Glucose 92 mg/dL (74-99); Magnesium 2.1 mg/dL (1.6-2.3); Non-African American GFR(CKD) >90 (>60 ml/min/1.73 sqM); Potassium 4.4 mmol/L (3.5-5.1); Sodium 136 mmol/L (137-145); Total Bilirubin 0.6 mg/dL (0.2-1.3)
[2021-02-09 12:35] LABS: Erythrocyte Sedimentation Rate 20 mm/hr (0-20)
--- NOTE | 2021-02-09 12:39 | P.PN ---
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 She has been moved to the 3S cardiac floor due to rapid response last night. She was on the commode and her heart rate went up to 185. She was then trying to get off the commode, but per nsg and medicine would not comply well. She was lucid, but not following directions. Pt states she remembers the entire event and just wanted to be left alone and so she became more anxious and worked up and just wanted to go back to sleep. She states then she went for multiple tests. She stated no chest pain, no SOB no GRAFF, N, V or vision changes with the event. Today she states none of these symptoms as well. She has developed a dermatitis like rash on her neck and shoulders however, that she states is better than it was yesterday. She denies any fevers or chills for the past 3 days. She states no GRAFF or vision changes today. She states some stiffness in her neck but no other symptoms. She states her arms and legs feel better and stronger every day. She states some tingling around her abdominal region which has been there since before surgery. She states she is voiding as well as BM and her most recent was yesterday and was productive. She was seen by [facility] per nsg due to her complaints of burning and pain with urination as well as concern for STD. Tests were sent. She states no genital numbness/tingling. She states no perirectal numbness/tingling. States no other issues and wants to get up and shower as well as walk around. Echo was done yesterday as well at CT PE. No PE seen. Echo showed some minor concentric LV hypertrophy with a EF >50 and no other issues. Objective - Vital Signs Vital signs: Vital Signs Temp 97.6 F 02/09/21 11:48 Pulse 97 02/09/21 11:48 Resp 16 02/09/21 11:48 BP 96/60 02/09/21 11:48 Pulse Ox 100 02/09/21 11:48 Intake & Output 02/08/21 02/09/21 02/09/21 18:59 06:59 18:59 Intake Total 800 240 Output Total 3000 Balance 800 -3000 240 Weight 90.5 kg Intake: IV 100 Lactated Ringers 1,000 ml 100 @ 20 mls/hr IV .Q24H [facility] Rx#:[id number] Intake, IV Titration 100 Amount ceFAZolin 2 gm In Sodium 100 Chloride 0.9% 50 ml @ 100 mls/hr IVPB Q8HR [facility] Rx# :[id number] Oral 600 240 Output: Urine 3000 Other: Voiding Method Bedside Commode Toilet # Voids 3 ABP, PAP, CO, CI - Last Documented Arterial Blood Pressure 135/68 - Exam Exam repeated. Stable today. Dressings removed. Incisions are CDI with no drainage, no EEE, minimal TTP. Patient is alert and oriented 3 appears well-nourished well-hydrated is in no acute distress. They does not appear septic. On exam the patient has no tenderness to palpation of her thoracic or lumbar spine. There is no edema or ballottement sign. Lower extremities with 4 out of 5 strength in all major muscle groups Upper extremities show 4/5 strength in all major muscle groups. She has some intrinsic weakness still and call box wirer strength weakness. Some improving. She was walking yesterday with walker and help. She did shower yesterday as well. She has some wrist extension weakness today on the L 4-/5 at this time. There is FROM that is painless of the b/l UE and LE in all major joints. She does have limited ROM of her R knee secondary to her previous surgeies. They are intact to light touch sensation in L2 to S1 nerve distribution. 2/4 DTR all, brisk Patient has palpable dorsalis pedis was posterior tibial pulses. Palpable radial and ulnar pulses bilaterally Compartments are soft and compressible. Patient shows a negative Homans, Villafuerte's improving mildly positive bilaterally, best on the L, some what worse on the R could be at baseline. No more clonus at this time Babinski is negative and downgoing No tensioning signs. Cranial nerves II through XII are grossly intact. Overall alignment is well-maintained in the sagittal coronal planes. Incisions are clean and dry. There is no EEE, there is no drainage. There is no flucctuence. There is no signs of further infection. There is some TTP around her posterior incision. - Constitutional General appearance: Present: cooperative - Labs CBC & Chem 7: 02/09/21 06:22 02/09/21 11:30 Labs: Abnormal Lab Results - Last 24 Hours (Table) 02/08/21 02/08/21 02/08/21 Range/Units 05:26 18:06 20:22 WBC 28.3 H (3.8-10.6) k/uL RBC (3.80-5.40) m/uL Hgb 10.1 L (11.4-16.0) gm/dL Hct 30.2 L (34.0-46.0) % MCV 79.4 L (80.0-100.0) fL RDW 18.2 H (11.5-15.5) % Neutrophils # (1.3-7.7) k/uL ESR 31 H (0-20) mm/Hr Sodium (137-145) mmol/L Chloride (98-107) mmol/L Carbon Dioxide (22-30) mmol/L BUN (7-17) mg/dL Creatinine (0.52-1.04) mg/dL Glucose (74-99) mg/dL POC Glucose (mg/dL) 152 H (75-99) mg/dL Magnesium (1.6-2.3) mg/dL AST (14-36) U/L ALT (4-34) U/L Alkaline Phosphatase (38-126) U/L C-Reactive Protein (<1.0) mg/dL Total Protein (6.3-8.2) g/dL Albumin (3.5-5.0) g/dL Urine Appearance (Clear) Urine Blood (Negative) Ur Leukocyte Esterase (Negative) Urine RBC (0-5) /hpf Urine WBC (0-5) /hpf Urine Bacteria (None) /hpf Urine Mucus (None) /hpf Ur Oxycodone Screen (NotDetected) U Benzodiazepines Scrn (NotDetected) 02/08/21 02/09/21 02/09/21 Range/Units 20:22 04:03 06:22 WBC 20.8 H (3.8-10.6) k/uL RBC 3.62 L (3.80-5.40) m/uL Hgb 9.6 L (11.4-16.0) gm/dL Hct 28.3 L (34.0-46.0) % MCV 78.2 L (80.0-100.0) fL RDW 18.3 H (11.5-15.5) % Neutrophils # 17.4 H (1.3-7.7) k/uL ESR (0-20) mm/Hr Sodium 134 L (137-145) mmol/L Chloride 96 L (98-107) mmol/L Carbon Dioxide (22-30) mmol/L BUN 34 H (7-17) mg/dL Creatinine (0.52-1.04) mg/dL Glucose 107 H (74-99) mg/dL POC Glucose (mg/dL) (75-99) mg/dL Magnesium 1.5 L (1.6-2.3) mg/dL AST (14-36) U/L ALT (4-34) U/L Alkaline Phosphatase (38-126) U/L C-Reactive Protein (<1.0) mg/dL Total Protein (6.3-8.2) g/dL Albumin (3.5-5.0) g/dL Urine Appearance (Clear) Urine Blood (Negative) Ur Leukocyte Esterase (Negative) Urine RBC (0-5) /hpf Urine WBC (0-5) /hpf Urine Bacteria (None) /hpf Urine Mucus (None) /hpf Ur Oxycodone Screen Detected H (NotDetected) U Benzodiazepines Scrn Detected H (NotDetected) 02/09/21 02/09/21 02/09/21 Range/Units 06:22 09:30 11:30 WBC (3.8-10.6) k/uL RBC (3.80-5.40) m/uL Hgb (11.4-16.0) gm/dL Hct (34.0-46.0) % MCV (80.0-100.0) fL RDW (11.5-15.5) % Neutrophils # (1.3-7.7) k/uL ESR (0-20) mm/Hr Sodium 136 L 136 L (137-145) mmol/L Chloride (98-107) mmol/L Carbon Dioxide 34 H 32 H (22-30) mmol/L BUN 21 H 22 H (7-17) mg/dL Creatinine 0.43 L 0.43 L (0.52-1.04) mg/dL Glucose (74-99) mg/dL POC Glucose (mg/dL) (75-99) mg/dL Magnesium (1.6-2.3) mg/dL AST 173 H (14-36) U/L ALT 199 H (4-34) U/L Alkaline Phosphatase 135 H (38-126) U/L C-Reactive Protein 7.3 H (<1.0) mg/dL Total Protein 6.0 L (6.3-8.2) g/dL Albumin 3.1 L (3.5-5.0) g/dL Urine Appearance Cloudy H (Clear) Urine Blood Moderate H (Negative) Ur Leukocyte Esterase Large H (Negative) Urine RBC 20 H (0-5) /hpf Urine WBC 53 H (0-5) /hpf Urine Bacteria Rare H (None) /hpf Urine Mucus Rare H (None) /hpf Ur Oxycodone Screen (NotDetected) U Benzodiazepines Scrn (NotDetected) Assessment and Plan Assessment: 1. 36 yo female with C5-6 osteodiscitis with severe kyphotic deformity, severe stenosis and progressive myelopathy POD13 C5 and C6 corpectomy with arthrodesis C4-7. POD10 C2-T1 decompression and fusion 2. s/p ORIF femur with revision and infection 3. IVDA 4. Complex medical patient Plan: -Appreciate lifestyle consultant and team management. -Activity: Ambulate QID, OOB all meals, up and about, limit lifting bending twisting to less than 5 lbs. Use walker or cane if needed for stability. -Daily PT/OT, increase ambulation strength and balance. -Rigid cervical collar at all times when up and about. Pt having what seems like reaction to her janeen collar, she does not need to wear if she sits in s hower but needs to wear [place] when up and about at all times. -Work on getting up today and ambulating 4-5x daily. -Pain control: Regiment revamp -Tylenol 1000 mg PO q 6 hr PRN -Oxy IR 5-10 mg q4 hrs pain scale 0-5 and >5 respectively -Flexeril 10 [facility] TID -Valium 5 mg PRN anxiety -Meds: reviewed -GI ppx: senna, Miralax -Measure PVR -DVT PPX: Cont with TEDs, SCD, Chemoppx -Hygiene: Maintain proper hygiene, may shower daily as long as she has help. -Encourage IS 10x/hr -PICC line in place -Consider vancomycin. 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 Her WBC is improving, her SED and CRP are elevated but this could be due to recent surgery. There is NO evidence of SSI or any sugical site issues. DO NOT rescan neck at this time. If concerns with symptoms of new low back or mid back pain could scan these again, but at this time there is no reason to rescan. All incisions are clean and dry with no evidence of any further issues in these areas. -Dispo: Ortho spine stable for [facility] Due to holiday case management stating she will likely not make it to [facility] until Tuesday. They are exploring options however insurance has denied most other facilities.
[2021-02-09 14:03] LABS: N. gonorrhoeae,PCR Negative (Neg,Equiv); Neisseria Source Urine
[2021-02-09 14:09] LABS: C. trachomatis,PCR Negative (Neg,Equiv); Chlamydia trachomatis Source Urine
[2021-02-09] MEDS: LACTATED RINGERS 1,000 ML IV SCH (14:34)
[2021-02-09] MEDS: CEFEPIME 2 GM in SODIUM CHLORIDE 0.9% 100 ML IVPB SCH (19:20)
[2021-02-09] MEDS ORDERED: diphenhydrAMINE 50 MG/ML 1 ML VIAL IVP PRN (20:53)
[2021-02-09] MEDS ORDERED: SODIUM CHLORIDE 0.9% 500 ML 500 ML IV ONE (20:53)
[2021-02-09] MEDS: valACYclovir 500 MG TAB PO SCH (23:37)
--- NOTE | 2021-02-10 02:17 | P.PN ---
Subjective Progress Note Date: 02/09/21 Principal diagnosis: Status post cervical spine fusion from C4 to C6 for discitis, osteomyelitis and paraspinal abscess Ms. Hood is a 36-year-old white female with a past medical history of polysubstance abuse who presented to the emergency department on 01/27/2020 with a chief complaint of neck pain and bilateral arm weakness. Patient had a fall and sustained fracture of the right femur in May 2020, later on deemed to be pathological due to possible osteomyelitis. But patient did not receive IV antibiotics and subsequently was seen at multiple facilities and leaving AGAINST MEDICAL ADVICE. Eventually patient had an MRI of the cervical/thoracic/lumbar spine showing multiple fractures of cervical spine including C5-C6, discitis and paravertebral abscess of the cervical spine, severe spinal stenosis and thyroid cultures spinal cord edema. Eventually patient was evaluated by orthopedic surgery and she underwent anterior cervical C5-C6 corpectomy and C4 C7 sta bilization by orthopedics. Postop patient was in the ICU for 3-4 days and eventually she was transferred to the medical floors. On 02/07/2021- patient is seen and examined at the bedside. She is comfortably sitting in a chair by the bedside and eating chips with salsa. She appears to be no acute distress. Patient states that she has a feeling of tightness around her abdomen, she feels like a tight bandlike sensation. She denies having any abdominal pain nausea vomiting or diarrhea. She states that the strength in both upper extremities is improving. She denies of any worsening neck pain. She denies having any fevers chills or rigors. No chest pain or palpitations. No cough or difficulty in breathing. On reviewing her vitals temperature of 98.3, heart rate between 100s to 120s, respiratory rate 16, blood pressure 120/82, saturating at 98% on room air. Last administration white count of 37, hemoglobin 9.8, platelets 363. Sodium 136, but patient 4.6, chloride 102, bicarb 32, B and 22, creatinine 0.37. On 02/08/2021- patient was seen and examined at the bedside. She is comfortably sitting up in a chair eating her breakfast. She appears to be no acute distress. Patient states she still feels like of tight bandlike sensation around her abdominal area. But denies having any abdominal pain nausea vomiting or diarrhea. Patient denies having any fevers chills or rigors. No worsening of neck pain. Patient denies having any chest pain or palpitations. No cough or difficulty in breathing. No dysuria or hematuria. On reviewing her vitals patient's temperature 98.2, heart rate 110s to 115, respiratory rate 16, blood pressure 109/68 saturating at 99% on room air. On reviewing her labs from this morning white count of 19, hemoglobin 9.6, platelets 211. Sodium 139, potassium 4.2, chloride 102, bicarb 27, BUN 29, creatinine 0.4 TSH 5.090. On 02/09/2021 -patient is seen and examined at the bedside. She is comfortably sitting up in a chair by the bedside appears to be no acute distress. Patient states that she is not having any fevers chills or rigors. No chest pain or palpitations. Yesterday she had an episode of her heart rate being in the 160s to 180s so transferred to the cardiac unit and being closely monitored. Patient denied having any cough or difficulty breathing. She denied having any abdominal pain nausea vomiting or diarrhea. No dysuria or hematuria. On reviewing her vitals temperature of 98.2, heart rate 70s to 130s, respiratory rate 18, blood pressure 109/64, saturating at 100% on room air. Reviewing the labs from this morning sodium 136, potassium 4.4, chloride 101, bicarb 32, BUN 22, creatinine 0.43. Albumin 3.1. AST 173, ALT 199 and alkaline phosphatase 135. Reviewing her medication she is on Tylenol, cefazolin, Flexeril, Valium, Cymbalta, Neurontin, heparin, NovoLog, Zofran, oxycodone, Protonix, MiraLAX, senna. Objective - Vital Signs Vital signs: Vital Signs Temp 97.6 F 02/09/21 11:48 Pulse 97 02/09/21 11:48 Resp 16 02/09/21 11:48 BP 96/60 02/09/21 11:48 Pulse Ox 100 02/09/21 11:48 Intake & Output 02/08/21 02/09/21 02/09/21 18:59 06:59 18:59 Intake Total 800 240 Output Total 3000 Balance 800 -3000 240 Weight 90.5 kg Intake: IV 100 Lactated Ringers 1,000 ml 100 @ 20 mls/hr IV .Q24H [facility] Rx#:[id number] Intake, IV Titration 100 Amount ceFAZolin 2 gm In Sodium 100 Chloride 0.9% 50 ml @ 100 mls/hr IVPB Q8HR [facility] Rx# :[id number] Oral 600 240 Output: Urine 3000 Other: Voiding Method Bedside Commode Toilet # Voids 3 ABP, PAP, CO, CI - Last Documented Arterial Blood Pressure 135/68 - Exam GENERAL EXAM: Sitting in a chair by the bedside HEENT : Normocephalic/atraumatic, PERRLA, EOMI, nonicteric, moist mucous membranes NECK:Right neck and posterior neck surgical incisions clean and dry CHEST: Symmetrical chest expansion. LUNGS: Clear throughout no crackles or rhonchi or wheezes CVS: Normal S1 and S2, no S3 gallop. ABDOMEN: Nontender no megaly no rebound no guarding EXTREMITIES: No clubbing edema or cyanosis. MUSCULOSKELETAL: No deformities. Strength seems to be 4/5 bilaterally SKIN: No rashes, patient has multiple areas of need fisher and small scabs on her hands, no open areas no open wounds CENTRAL NERVOUS SYSTEM: Alert and oriented 3, no gross focal neurologic deficit. - Labs CBC & Chem 7: 02/09/21 06:22 02/09/21 11:30 Labs: Abnormal Lab Results - Last 24 Hours (Table) 02/08/21 02/08/21 02/08/21 Range/Units 05:26 18:06 20:22 WBC 28.3 H (3.8-10.6) k/uL RBC (3.80-5.40) m/uL Hgb 10.1 L (11.4-16.0) gm/dL Hct 30.2 L (34.0-46.0) % MCV 79.4 L (80.0-100.0) fL RDW 18.2 H (11.5-15.5) % Neutrophils # (1.3-7.7) k/uL ESR 31 H (0-20) mm/Hr Sodium (137-145) mmol/L Chloride (98-107) mmol/L Carbon Dioxide (22-30) mmol/L BUN (7-17) mg/dL Creatinine (0.52-1.04) mg/dL Glucose (74-99) mg/dL POC Glucose (mg/dL) 152 H (75-99) mg/dL Magnesium (1.6-2.3) mg/dL AST (14-36) U/L ALT (4-34) U/L Alkaline Phosphatase (38-126) U/L C-Reactive Protein (<1.0) mg/dL Total Protein (6.3-8.2) g/dL Albumin (3.5-5.0) g/dL Urine Appearance (Clear) Urine Blood (Negative) Ur Leukocyte Esterase (Negative) Urine RBC (0-5) /hpf Urine WBC (0-5) /hpf Urine Bacteria (None) /hpf Urine Mucus (None) /hpf Ur Oxycodone Screen (NotDetected) U Benzodiazepines Scrn (NotDetected) 02/08/21 02/09/21 02/09/21 Range/Units 20:22 04:03 06:22 WBC 20.8 H (3.8-10.6) k/uL RBC 3.62 L (3.80-5.40) m/uL Hgb 9.6 L (11.4-16.0) gm/dL Hct 28.3 L (34.0-46.0) % MCV 78.2 L (80.0-100.0) fL RDW 18.3 H (11.5-15.5) % Neutrophils # 17.4 H (1.3-7.7) k/uL ESR (0-20) mm/Hr Sodium 134 L (137-145) mmol/L Chloride 96 L (98-107) mmol/L Carbon Dioxide (22-30) mmol/L BUN 34 H (7-17) mg/dL Creatinine (0.52-1.04) mg/dL Glucose 107 H (74-99) mg/dL POC Glucose (mg/dL) (75-99) mg/dL Magnesium 1.5 L (1.6-2.3) mg/dL AST (14-36) U/L ALT (4-34) U/L Alkaline Phosphatase (38-126) U/L C-Reactive Protein (<1.0) mg/dL Total Protein (6.3-8.2) g/dL Albumin (3.5-5.0) g/dL Urine Appearance (Clear) Urine Blood (Negative) Ur Leukocyte Esterase (Negative) Urine RBC (0-5) /hpf Urine WBC (0-5) /hpf Urine Bacteria (None) /hpf Urine Mucus (None) /hpf Ur Oxycodone Screen Detected H (NotDetected) U Benzodiazepines Scrn Detected H (NotDetected) 02/09/21 02/09/21 02/09/21 Range/Units 06:22 09:30 11:30 WBC (3.8-10.6) k/uL RBC (3.80-5.40) m/uL Hgb (11.4-16.0) gm/dL Hct (34.0-46.0) % MCV (80.0-100.0) fL RDW (11.5-15.5) % Neutrophils # (1.3-7.7) k/uL ESR (0-20) mm/Hr Sodium 136 L 136 L (137-145) mmol/L Chloride (98-107) mmol/L Carbon Dioxide 34 H 32 H (22-30) mmol/L BUN 21 H 22 H (7-17) mg/dL Creatinine 0.43 L 0.43 L (0.52-1.04) mg/dL Glucose (74-99) mg/dL POC Glucose (mg/dL) (75-99) mg/dL Magnesium (1.6-2.3) mg/dL AST 173 H (14-36) U/L ALT 199 H (4-34) U/L Alkaline Phosphatase 135 H (38-126) U/L C-Reactive Protein 7.3 H (<1.0) mg/dL Total Protein 6.0 L (6.3-8.2) g/dL Albumin 3.1 L (3.5-5.0) g/dL Urine Appearance Cloudy H (Clear) Urine Blood Moderate H (Negative) Ur Leukocyte Esterase Large H (Negative) Urine RBC 20 H (0-5) /hpf Urine WBC 53 H (0-5) /hpf Urine Bacteria Rare H (None) /hpf Urine Mucus Rare H (None) /hpf Ur Oxycodone Screen (NotDetected) U Benzodiazepines Scrn (NotDetected) Microbiology - Last 24 Hours (Table) 02/09/21 09:30 Urine Culture - Preliminary Urine,Voided Assessment and Plan Assessment: ASSESSMENT Postoperative day # 11 , C5 and C6 corpectomy and arthrodesis of C4-7 Postoperative day # 8 posterior C2-T1 posteriolateral instrumental fusion, C2 C7 decompressive laminectomy posterior cervical segmental instrumentation Acute progressive myelopathy secondary to C5-C6 osteo discitis and severe kyphotic deformity with severe stenosis Leukocytosis Wound cultures positive for MSSA History of IV drug abuse. History of ORIF femur and revision with infection. PLAN: On 02/07/2021- Patient had elevated white count of 37 , could be secondary to use of Decadron that she is on. Her steroids have been discontinued by orthopedics yesterday , her WBC trending down. On reviewing her vitals she has tachycardia with heart rate between 100s to 120s. But she has been afebrile. Continue telemetry monitoring, TSH checked is WNL. We will continue to follow and monitor the patient closely. Continuing antibiotics in the form of cefazolin as per ID Dr. Chung recommendations. on 02/08/2021- Later in the afternoon patient heart rate went up to 180 on the quality assurance monitor body. On checking her heart rate it was between 150s to 160s. She was started on Lopressor 25 mg twice daily. She was transferred to the cardiac unit for closer monitoring. CT angio of the chest for PE ordered that was negative for pulmonary embolism. Will order echocardiogram. Further recommendations depending on the progress of the patient. On 02/09/2021-Later in the evening, I was called by her nurse stating that leesa santana's father called to the hospital and mentioned that his girlfriend was visiting his daughter and she witnessed the patient crushing up pills and injecting them into her IV. So a health safety specialist at bedside has been ordered. Consider Psychiatric evaluation. And patient's blood cultures obtained this morning were positive for Enterobacter cloacae, ID Dr. Chung on board to follow-up on the cultures for antibiotic stewardship. Patient had an echocardiogram done yesterday showing ejection fraction of 55 to 60%. Continue with the rest of her current medication regimen. SCDs for DVT pr ophylaxis. Overall prognosis remains guarded.
[2021-02-10] MEDS: CEFEPIME 2 GM in SODIUM CHLORIDE 0.9% 100 ML IVPB SCH ×3 (02:43→18:40)
--- NOTE | 2021-02-10 06:12 | PN ---
PROGRESS NOTE DATE OF SERVICE: 02/09/2021 REASON FOR FOLLOWUP: 1. Cervical paraspinal abscess. 2. Rash. INTERVAL HISTORY: The patient did have an SVT and has been transferred to the tele floor. The patient also noticed to have some white material from her PICC site. Apparently the patient has been crushing pain medication and has been injecting herself through the PICC line, as information provided by the nursing staff. The patient noticed to have more marked rash to the upper chest area. Denies having any itching or any burning pain associated with it and no rash on the other sites of the body. Because of these concerns expressed by the nursing staff yesterday, blood cultures were repeated yesterday and they are coming back positive with Gram-negative bacilli. The patient denies having any chest pain. No pain or any worsening to the neck area. No abdominal pain or diarrhea. PHYSICAL EXAMINATION: VITAL SIGNS: Blood pressure 109/61, pulse 125, temperature 98.7, she is 98% on room air. General description is a middle-aged female up in the chair in no distress. HEENT: Pallor, oral mucous membranes are dry. Respiratory system: Unlabored breathing, decreased intensity of breath sounds, no wheezes. Heart S1, S2. Regular rate and rhythm. Abdomen is soft, no tenderness. Extremities with no edema of the feet. Upper chest area did have a vesicular type of rash. LABS: Hemoglobin 9.1, white count 20.8, BUN of 22, creatinine 0.43. Liver enzymes are elevated. DIAGNOSTIC IMPRESSION/PLAN: 1. Patient with cervical and thoracolumbar spinal abscess. Culture has been positive for MSSA. Even though this patient have a previous history of MRSA infection, but this time the culture is positive for MSSA and the patient initially did not have any positive blood cultures and the patient clinically responding to cefazolin. However, now with the patient abusing her PICC line by injecting medication into it, it is not clear how she is getting all those materials getting to herself in the room, with a positive blood culture with gram-negative in the high clinical suspicious for PICC line infection, blood cultures will be repeated. Antibiotic will be adjusted to cefepime. 2. Patient with a vesicular rash to the upper chest with a history of HSV infection. Will check HSV serology and add Valtrex. 3. Elevated liver enzymes. Check hepatitis serology. MMODL / IJN: [id number] /
[2021-02-10] MEDS: PANTOPRAZOLE 40 MG TABLET PO SCH (06:29)
[2021-02-10] MEDS: valACYclovir 500 MG TAB PO SCH ×3 (07:51→23:44)
[2021-02-10] MEDS: HEPARIN SODIUM,PORCINE/PF 5,000 UNIT/0.5 ML SYRINGE SQ SCH ×2 (07:51→21:17)
[2021-02-10] MEDS: CYCLOBENZAPRINE 10 MG TAB PO SCH ×3 (07:52→21:17)
[2021-02-10] MEDS: GABAPENTIN 300 MG CAP PO SCH ×3 (07:52→21:17)
[2021-02-10] MEDS: METOPROLOL TARTRATE 25 MG TAB PO SCH ×2 (07:52→21:17)
[2021-02-10] MEDS: DULoxetine HCL 60 MG CAPSULE.DR PO SCH (07:53)
[2021-02-10] MEDS: polyethylene glycoL 3350 17 GM POWD.PACK PO SCH (07:53)
[2021-02-10 08:44] LABS: ALT 266 U/L (4-34); AST 188 U/L (14-36); African American GFR (CKD) >90 (>60 ml/min/1.73 sqM); Albumin 3.2 g/dL (3.5-5.0); Alkaline Phosphatase 182 U/L (38-126); Anion Gap 6 mmol/L; Blood Urea Nitrogen 20 mg/dL (7-17); Carbon Dioxide 30 mmol/L (22-30); Chloride 99 mmol/L (98-107); Glucose 116 mg/dL (74-99); Non-African American GFR(CKD) >90 (>60 ml/min/1.73 sqM); Potassium 4.3 mmol/L (3.5-5.1); Sodium 135 mmol/L (137-145); Total Bilirubin 0.9 mg/dL (0.2-1.3); Total Protein 6.3 g/dL (6.3-8.2)
[2021-02-10 09:41] LABS: Anisocytosis Slight; Basophils % (A) 0 %; Eosinophils # (A) 0.2 k/uL (0-0.7); Eosinophils % (A) 2 %; HCT 32.7 % (34.0-46.0); HGB 10.5 gm/dL (11.4-16.0); Hypochromasia Slight; Lymphocytes # (A) 2.1 k/uL (1.0-4.8); Lymphocytes % (A) 19 %; MCH 25.7 pg (25.0-35.0); MCHC 32.2 g/dL (31.0-37.0); MCV 79.8 fL (80.0-100.0); Mean Platelet Volume 7.4; Microcytosis Slight; Monocytes # (A) 0.6 k/uL (0-1.0); Monocytes % (A) 6 %; Neutrophils # (A) 7.6 k/uL (1.3-7.7); Neutrophils % (A) 70 %; Platelet Count 188 k/uL (150-450); RDW 18.3 % (11.5-15.5); WBC 10.9 k/uL (3.8-10.6)
--- NOTE | 2021-02-10 12:02 | FL ---
EXAMINATION TYPE: FL barium swallow w video DATE OF EXAM: 02/10/2021 MODIFIED SWALLOW / DEGLUTITION STUDY CLINICAL HISTORY: Dysphagia. Rule out aspiration. History of paraspinal abscess and subsequent surgic al fixation cervical spine. TECHNIQUE: Deglutition study is performed utilizing thin liquid barium, honey and nectar thick liqui d barium, barium thick applesauce, and barium coated cracker. 1 minute 42 seconds of fluoro time and 0 images obtained. COMPARISON: None. FINDINGS: The oral and pharyngeal phases show satisfactory initiation with all modalities tested. Po or epiglottis inversion noted. Satisfactory mastication is seen with solid modalities tested. There is transient penetration with thin liquid barium. No aspiration evident. Mild to moderate pharyngeal residue was appreciated greatest with more viscous modalities. IMPRESSION: No aspiration noted. Please refer to speech therapist notes for further details if deidre dyer.
--- NOTE | 2021-02-10 12:15 | CONS ---
CONSULTATION DATE OF SERVICE: 02/10/2021 CHIEF COMPLAINT: Kimberly is a 36-year-old lady with complex and multiple medical problems who is admitted to the hospital primarily with cervical spine abscess. She has a history of drug abuse, has had neck pain swelling and bilateral arm weakness which initially brought her in to the hospital. She also had fracture of the right femur. The right femur fracture was secondary to osteomyelitis. She had cervical spine fractures including diskitis, paravertebral abscesses and spinal cord edema for which the patient underwent surgery and was in the MED/SURG making recovering and apparently became suddenly tachycardic. She was not on telemetry. The hospitalist who initially evaluated her felt that she was in SVT, but by the time she was put on the monitor, she was simply in sinus tachycardia. Subsequently she had been transferred to 3rd floor and she has a sitter at bedside. At the time of my evaluation, she remains in sinus rhythm with sinus tachycardia, heart rate of around 115-120 beats per minute. An EKG shows sinus tachycardia. The patient had an echocardiogram that revealed normal LV systolic function with mild tricuspid regurgitation. The patient had a CTA of the chest that shows an infiltrate in the right lower lobe. The patient is currently on a beta cy and the heart rate has improved. PAST MEDICAL HISTORY: Significant for multiple drug abuse, osteomyelitis of the right femur and recent history of cervical spine abscess and surgery. MEDICATIONS: Medications at home included: Miralax, OxyContin, Serzone, Neurontin, Valium, Flexeril. ALLERGIES: No known drug allergies. FAMILY HISTORY: Negative for premature coronary artery disease. SOCIAL HISTORY: Significant for drug abuse. REVIEW OF SYSTEMS: HEENT significant for neck pain and abscesses. CARDIAC significant for tachycardia. RESPIRATORY: Negative. GI: Negative. GENITOURINARY negative. ALLERGY/IMMUNOLOGY: None. SKIN negative. MUSCULOSKELETAL significant for fractured femur. Weakness and cervical cord compression. SKIN significant for skin rash. PHYSICAL EXAMINATION: Patient is afebrile. Heart rate is 120 beats per minute. Blood pressure 112/69, respiratory rate is 16, O2 saturation is 99% on room air. NECK: There is no jugular venous distention. CHEST exam reveals good air entry bilaterally. HEART exam reveals first and second heart sounds. No gallop. No murmur. No rub. ABDOMEN: Soft. Exam of EXTREMITIES did not reveal any edema. Peripheral pulses are felt. She has a macular skin rash over her neck and upper chest wall. An EKG shows sinus tachycardia. LABS: Labs show a hemoglobin of 9.6. The coronavirus test was negative. ASSESSMENT: Sinus tachycardia, probably related to sepsis recent surgery. The patient is hemodynamically stable. We do not have any rhythm strips from the time they thought she was in supraventricular tachycardia. Echocardiogram shows normal LV function. No other cardiac workup at this time. We will continue to monitor her on telemetry and once the infection improves, I expect the heart rate to improve. In the meantime, please continue the beta cy. The spinal abscess and the recent spine surgery could be causing her to have the tachycardia also and could represent autonomic imbalance. Thank you for allowing us to participate in this pleasant lady. MMNELL / IJN: [id number] /
--- NOTE | 2021-02-10 12:51 | P.PN ---
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 Patient remains on the cardiac stepdown floor, patient now does have a sitter at bedside. Discussed with nursing after exiting the room there is concern with abusing the oral medications and converting him to an IV route using her PICC line. Blood cultures are also showing gram-negative infection. Infectious disease has been monitoring and adjusting IV pain medication accordingly. Cardiology is also remaining on the case, the patient is currently being treated on beta blockers to help with her heart rate. Orthopedically the patient remained stable at this time, she is showing improvement daily. Objective - Vital Signs Vital signs: Vital Signs Temp 98.3 F 02/10/21 12:00 Pulse 107 H 02/10/21 12:00 Resp 16 02/10/21 12:00 BP 105/65 02/10/21 12:00 Pulse Ox 99 02/10/21 12:00 Intake & Output 02/09/21 02/10/21 02/10/21 18:59 06:59 18:59 Intake Total 240 600 Output Total 779 Balance -539 600 Weight 90.3 kg Intake: Oral 240 600 Output: Urine 700 Post Void Residual 79 Other: Voiding Method Toilet Toilet Toilet # Voids 2 2 ABP, PAP, CO, CI - Last Documented Arterial Blood Pressure 135/68 - Exam Patient is alert and oriented 3 appears well-nourished well-hydrated is in no acute distress. They does not appear septic. On exam the patient has no tenderness to palpation of her thoracic or lumbar spine. There is no edema or ballottement sign. Lower extremities with 4 out of 5 strength in all major muscle groups Upper extremities show 4/5 strength in all major muscle groups. 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 There is FROM that is painless of the b/l UE and LE in all major joints. She does have limited ROM of her R knee secondary to her previous surgeies. They are intact to light touch sensation in L2 to S1 nerve distribution. 2/4 DTR all, brisk Patient has palpable dorsalis pedis was posterior tibial pulses. Palpable radial and ulnar pulses bilaterally Compartments are soft and compressible. Patient shows a negative Homans, Villafuerte's improving mildly positive bilaterally No more clonus at this time Babinski is negative and downgoing No tensioning signs. Cranial nerves II through XII are grossly intact. Overall alignment is well-maintained in the sagittal coronal planes. Anterior incision is well healing, the surgical glue is in good position and condition. The posterior incision is healing well, the stitches around good position and condition. - Labs CBC & Chem 7: 02/10/21 09:12 02/10/21 08:10 Labs: Abnormal Lab Results - Last 24 Hours (Table) 02/10/21 02/10/21 Range/Units 08:10 09:12 WBC 10.9 H (3.8-10.6) k/uL Hgb 10.5 L (11.4-16.0) gm/dL Hct 32.7 L (34.0-46.0) % MCV 79.8 L (80.0-100.0) fL RDW 18.3 H (11.5-15.5) % Sodium 135 L (137-145) mmol/L BUN 20 H (7-17) mg/dL Creatinine 0.36 L (0.52-1.04) mg/dL Glucose 116 H (74-99) mg/dL AST 188 H (14-36) U/L ALT 266 H (4-34) U/L Alkaline Phosphatase 182 H (38-126) U/L Albumin 3.2 L (3.5-5.0) g/dL Microbiology - Last 24 Hours (Table) 02/09/21 11:30 Blood Culture Gram Stain - Preliminary Blood Blood Culture - Preliminary Enterobacter cloacae Complex 02/09/21 06:22 Blood Culture Gram Stain - Preliminary Blood 02/09/21 11:30 Blood Culture - Final Blood 02/09/21 06:22 Blood Culture - Final Blood 02/09/21 09:30 Urine Culture - Preliminary Urine,Voided Assessment and Plan Assessment: PO14 C5 and C6 corpectomy with arthrodesis C4-7. POD11 C2-T1 decompression and fusion 2. s/p ORIF femur with revision and infection 3. IVDA 4. Complex medical patient Plan: Pain control, plan to adjust oral medication today GI and DVT prophylaxis, continue with current medication Wound care was discussed with the patient Patient will continue using a rigid collar when up and about, she also has the other c-collar showering Other medical specialty recommendations Discharge planning: Anticipate discharge to rehab after cleared from other medical specialties
[2021-02-10 14:08] LABS: Hepatitis A Antibody IgM Non-Reactive (Non-Reactive); Hepatitis B Core IgM Non-Reactive (Non-Reactive); Hepatitis B Surface Antigen Non-Reactive (Non-Reactive); Hepatitis C IgG Antibody Reactive (Non-Reactive)
[2021-02-10 16:07] LABS: HSV I IgG Interp POSITIVE (NEGATIVE); HSV II IgG Interp POSITIVE (NEGATIVE)
[2021-02-10] MEDS: LACTATED RINGERS 1,000 ML IV SCH (16:55)
[2021-02-10] MEDS: SODIUM CHLORIDE 0.9% 500 ML 500 ML IV SCH (18:42)
--- NOTE | 2021-02-11 02:11 | PN ---
PROGRESS NOTE DATE OF SERVICE: 02/10/2021 REASON FOR FOLLOWUP: 1. Cervical thoracic paraspinal abscess. 2. Bacteremia possibly related to the PICC line misuse with rash. INTERVAL HISTORY: Patient is afebrile. The patient is breathing comfortably. The upper chest rash has decreased in intensity. No chest pain, shortness of breath, cough, abdominal pain or diarrhea. PHYSICAL EXAMINATION: Blood pressure 108/54, pulse of 115. Temperature 97.9. She is 97% on room air. General description is a middle-aged female up in the bed in no distress. Respiratory system: Unlabored breathing, decreased intensity in breath sounds. No wheeze. Heart S1, S2. Regular rate and rhythm. Abdomen soft. No tenderness. The upper chest wall rash has decreased in intensity. LABS: Hemoglobin is 10.1, white count 10.9, BUN of 20, creatinine 0.36. DIAGNOSTIC IMPRESSION/PLAN: 1. Patient with paraspinal abscess status post extensive surgery. Culture with MSSA. Subsequently developing new fever and now with blood culture positive for Enterobacter, more likely due to the misuse of the PICC line. Antibiotic will be adjusted to cefepime. White count normalized. Blood cultures will be followed, repeated. If persistent bacteremia, PICC line has to be discontinued. 2. Upper chest wall rash possibly related to her HSV infection, seemed to be responding to Valtrex, to continue. 3. Elevated liver enzymes with chronic hepatitis C. No need for any specific therapy for the positive at this point. MMODL / IJN: [id number] /
[2021-02-11] MEDS: CEFEPIME 2 GM in SODIUM CHLORIDE 0.9% 100 ML IVPB SCH ×2 (03:11→10:08)
[2021-02-11] MEDS: PANTOPRAZOLE 40 MG TABLET PO SCH (06:32)
[2021-02-11] MEDS: ACETAMINOPHEN TAB 500 MG TAB PO PRN (06:34)
--- NOTE | 2021-02-11 07:40 | P.PN ---
Progress Note - Text Progress Note Date: 02/11/21 Options requested consultation on February 07 and spoke with the nurse on in charge of her care at the only issue was concern for STD testing. I did order that SC testing and they are negative. No further consultations done this time as both chlamydia and gonorrhea were negative.
[2021-02-11] MEDS: METOPROLOL TARTRATE 25 MG TAB PO SCH ×2 (08:32→20:24)
[2021-02-11] MEDS: valACYclovir 500 MG TAB PO SCH ×3 (08:32→22:17)
[2021-02-11] MEDS: GABAPENTIN 300 MG CAP PO SCH ×3 (08:32→22:16)
[2021-02-11] MEDS: DULoxetine HCL 60 MG CAPSULE.DR PO SCH (08:32)
[2021-02-11] MEDS: CYCLOBENZAPRINE 10 MG TAB PO SCH ×3 (08:32→22:16)
[2021-02-11] MEDS: HEPARIN SODIUM,PORCINE/PF 5,000 UNIT/0.5 ML SYRINGE SQ SCH ×2 (08:32→20:27)
[2021-02-11] MEDS: polyethylene glycoL 3350 17 GM POWD.PACK PO SCH (08:32)
--- NOTE | 2021-02-11 12:35 | P.PN ---
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 Patient remains on the cardiac stepdown floor, patient now does have a sitter at bedside. Blood culture continues to show active infection, infectious disease is following Patient notes increasing pain, I did adjust the oral medications yesterday. Orthopedically the patient remained stable at this time. Objective - Vital Signs Vital signs: Vital Signs Temp 97.7 F 02/11/21 08:26 Pulse 102 H 02/11/21 08:26 Resp 16 02/11/21 08:26 BP 113/76 02/11/21 08:26 Pulse Ox 98 02/11/21 08:26 Intake & Output 02/10/21 02/11/21 02/11/21 18:59 06:59 18:59 Intake Total 1080 240 Balance 1080 240 Weight 95.5 kg Intake: Oral 1080 240 Other: Voiding Method Toilet Toilet # Voids 2 3 1 ABP, PAP, CO, CI - Last Documented Arterial Blood Pressure 135/68 - Exam Patient is alert and oriented 3 appears well-nourished well-hydrated is in no acute distress. They does not appear septic. On exam the patient has no tenderness to palpation of her thoracic or lumbar spine. There is no edema or ballottement sign. Lower extremities with 4 out of 5 strength in all major muscle groups Upper extremities show 4/5 strength in all major muscle groups. 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 There is FROM that is painless of the b/l UE and LE in all major joints. She does have limited ROM of her R knee secondary to her previous surgeies. They are intact to light touch sensation in L2 to S1 nerve distribution. 2/4 DTR all, brisk Patient has palpable dorsalis pedis was posterior tibial pulses. Palpable radial and ulnar pulses bilaterally Compartments are soft and compressible. Patient shows a negative Homans, Villafuerte's improving mildly positive bilaterally No more clonus at this time Babinski is negative and downgoing No tensioning signs. Cranial nerves II through XII are grossly intact. Overall alignment is well-maintained in the sagittal coronal planes. Anterior incision is well healing, the surgical glue is in good position and condition. The posterior incision is healing well, the stitches around good position and condition. - Labs CBC & Chem 7: 02/10/21 09:12 02/10/21 08:10 Labs: Abnormal Lab Results - Last 24 Hours (Table) 02/10/21 Range/Units 08:10 Hep C IgG Ab Reactive A (Non-Reactive) HSV I IgG Interpret POSITIVE A (NEGATIVE) HSV II IgG Interpret POSITIVE A (NEGATIVE) Microbiology - Last 24 Hours (Table) 02/10/21 08:10 Blood Culture Gram Stain - Preliminary Blood Blood Culture - Preliminary Gram Neg Bacilli 02/09/21 06:22 Blood Culture Gram Stain - Final Blood Blood Culture - Final Enterobacter cloacae Complex 02/09/21 11:30 Blood Culture Gram Stain - Final Blood Blood Culture - Final Enterobacter cloacae Complex 02/10/21 08:10 Blood Culture - Final Blood 02/09/21 09:30 Urine Culture - Final Urine,Voided Assessment and Plan Assessment: PO15 C5 and C6 corpectomy with arthrodesis C4-7. POD12 C2-T1 decompression and fusion 2. s/p ORIF femur with revision and infection 3. IVDA 4. Bacteremia 5. Complex medical patient Plan: Pain control, did back medication down to the oxycodone 10 mg every 6 hours, I will changed to oxycodone 5 mg every 4 hours GI and DVT prophylaxis, continue with current medication Wound care was discussed with the patient Patient will continue using a rigid collar when up and about, she also has the other c-collar showering Other medical specialty recommendations Discharge planning: Anticipate discharge to rehab after cleared from other medical specialties Time with Patient: Less than 30
[2021-02-11 16:42] LABS: Anisocytosis Slight; Basophils # (A) 0.1 k/uL (0-0.2); Basophils % (A) 1 %; Eosinophils # (A) 0.3 k/uL (0-0.7); Eosinophils % (A) 3 %; HCT 30.9 % (34.0-46.0); HGB 10.5 gm/dL (11.4-16.0); Lymphocytes # (A) 1.7 k/uL (1.0-4.8); Lymphocytes % (A) 16 %; MCH 26.7 pg (25.0-35.0); MCV 78.4 fL (80.0-100.0); Mean Platelet Volume 7.7; Microcytosis Slight; Monocytes # (A) 0.5 k/uL (0-1.0); Monocytes % (A) 4 %; Neutrophils # (A) 7.8 k/uL (1.3-7.7); Neutrophils % (A) 74 %; Platelet Count 189 k/uL (150-450); RBC 3.95 m/uL (3.80-5.40); RDW 17.9 % (11.5-15.5); WBC 10.6 k/uL (3.8-10.6)
[2021-02-11] MEDS: MEROPENEM 1 GM in SODIUM CHLORIDE 0.9% 100 ML IVPB SCH ×2 (16:45→22:16)
--- NOTE | 2021-02-11 17:31 | PN ---
PROGRESS NOTE DATE OF SERVICE: 02/11/2021 REASON FOR FOLLOWUP: 1. Paraspinal abscess MSSA. 2. Enterobacter bacteremia possibly due to the PICC line. INTERVAL HISTORY: The patient is afebrile. The patient is breathing comfortably. The patient's pain is currently controlled. No nausea, no vomiting. No abdominal pain. No diarrhea. PHYSICAL EXAMINATION: Blood pressure 108/59 with pulse of 110. Temperature 97.7. She is 98% on room air. General description is a middle-aged female up in the bed in no distress. Respiratory system: Unlabored breathing. Clear to auscultation. Heart: S1, S2. Regular rate and rhythm. Abdomen soft, no tenderness. LABS: Blood culture with Enterobacter, multidrug resistant, sensitive to the Meropenem. DIAGNOSTIC IMPRESSION AND PLAN: 1. Patient with paraspinal abscess status post surgical drainage. Culture with MSSA. Subsequently patient developing multidrug resistant Enterobacter bacteremia from abuse of the PICC line by injecting two drugs. The patient still PICC line needs to be replaced. We will switch antibiotic therapy to meropenem. 2. Patient with visible rash on the upper chest area, possibly related and is on Valtrex. MMODL / IJN: [id number] /
[2021-02-11] MEDS: diazePAM 5 MG TAB PO PRN (18:37)
--- NOTE | 2021-02-11 18:40 | PN ---
PROGRESS NOTE DATE OF SERVICE: 02/10/2021. CHIEF COMPLAINT: Status post cervical fusion for diskitis and osteomyelitis. HISTORY OF PRESENT ILLNESS: This lady is doing reasonably well but she is having a little bit of difficulty swallowing. She is otherwise doing well. Neurologically she is improving. PHYSICAL EXAMINATION: Her chest is clear. Cardiac exam is normal. Abdomen is soft and nontender. IMPRESSION: Status post cervical spine fusion for bacterial diskitis, paraspinous abscess and osteomyelitis. PLAN: Continue to follow with Orthopedic Surgery. In the meantime, she is going to be referred to speech therapy and discharge planning is still underway. MMODL / IJN: [id number] /
--- NOTE | 2021-02-11 18:58 | PN ---
PROGRESS NOTE DATE OF SERVICE: 02/11/2021 CHIEF COMPLAINT: Status post cervical spine fusion. HISTORY OF PRESENT ILLNESS: This lady is becoming quite agitated. She is having some difficulty swallowing. PHYSICAL EXAMINATION: Chest is clear. Cardiac exam is normal. Abdomen is soft and nontender. There are no neck masses. IMPRESSION: 1. Status post cervical spine fusion for osteomyelitis and diskitis. 2. Agitation and delirium. 3. Dysphagia. PLAN: She is being evaluated by speech therapy now. Otherwise, her IV antibiotics continue. MMODL / IJN: [id number] /
[2021-02-11] MEDS: SODIUM CHLORIDE 0.9% 500 ML 500 ML IV SCH (20:56)
[2021-02-12] MEDS: PANTOPRAZOLE 40 MG TABLET PO SCH (06:36)
[2021-02-12] MEDS: METOPROLOL TARTRATE 25 MG TAB PO SCH ×2 (08:42→20:18)
[2021-02-12] MEDS: CYCLOBENZAPRINE 10 MG TAB PO SCH ×3 (08:42→22:18)
[2021-02-12] MEDS: polyethylene glycoL 3350 17 GM POWD.PACK PO SCH (08:43)
[2021-02-12] MEDS: GABAPENTIN 300 MG CAP PO SCH ×3 (08:43→22:18)
[2021-02-12] MEDS: HEPARIN SODIUM,PORCINE/PF 5,000 UNIT/0.5 ML SYRINGE SQ SCH ×2 (08:43→21:41)
[2021-02-12] MEDS: DULoxetine HCL 60 MG CAPSULE.DR PO SCH (08:43)
[2021-02-12] MEDS: valACYclovir 500 MG TAB PO SCH ×3 (08:49→22:19)
[2021-02-12] MEDS: MEROPENEM 1 GM in SODIUM CHLORIDE 0.9% 100 ML IVPB SCH ×3 (08:49→22:18)
--- NOTE | 2021-02-12 10:04 | P.PN ---
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 Patient remains on the cardiac stepdown floor, patient now does have a sitter at bedside. Blood culture continues to show active infection, infectious disease is following Patient notes increasing pain since decreasing her oral medication. She remains on Flexeril 10 mg 3 times a day, gabapentin 300 mg 3 times a day, oxycodone 5 mg every 4 hours. Objective - Vital Signs Vital signs: Vital Signs Temp 98.1 F 02/12/21 08:40 Pulse 109 H 02/12/21 08:40 Resp 18 02/12/21 08:40 BP 102/69 02/12/21 08:40 Pulse Ox 100 02/12/21 08:40 Intake & Output 02/11/21 02/12/21 02/12/21 18:59 06:59 18:59 Intake Total 2343 460 240 Balance 2343 460 240 Weight 86.7 kg Intake: IV 120 Lactated Ringers 1,000 ml 120 @ 20 mls/hr IV .Q24H [facility] Rx#:[id number] Intake, IV Titration 100 100 Amount Cefepime 2 gm In Sodium 100 Chloride 0.9% 100 ml @ 25 mls/hr IVPB Q8H [facility] Rx#: [id number] Meropenem 1 gm In Sodium 100 Chloride 0.9% 100 ml @ 33 .3 mls/hr IVPB Q8HR [facility] Rx#:[id number] Oral 2243 240 240 Other: Voiding Method Toilet Toilet Toilet # Voids 1 3 ABP, PAP, CO, CI - Last Documented Arterial Blood Pressure 135/68 - Exam Patient is alert and oriented 3 appears well-nourished well-hydrated is in no acute distress. They does not appear septic. On exam the patient has no ten derness to palpation of her thoracic or lumbar spine. There is no edema or ballottement sign. Lower extremities with 4 out of 5 strength in all major muscle groups Upper extremities show 4/5 strength in all major muscle groups. 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 There is FROM that is painless of the b/l UE and LE in all major joints. She does have limited ROM of her R knee secondary to her previous surgeies. They are intact to light touch sensation in L2 to S1 nerve distribution. 2/4 DTR all, brisk Patient has palpable dorsalis pedis was posterior tibial pulses. Palpable radial and ulnar pulses bilaterally Compartments are soft and compressible. Patient shows a negative Homans, Villafuerte's improving mildly positive bilaterally No more clonus at this time Babinski is negative and downgoing No tensioning signs. Cranial nerves II through XII are grossly intact. Overall alignment is well-maintained in the sagittal coronal planes. Anterior incision is well healing, the surgical glue is in good position and condition. The posterior incision is healing well, the stitches around good position and condition. - Labs CBC & Chem 7: 02/11/21 16:33 02/10/21 08:10 Labs: Abnormal Lab Results - Last 24 Hours (Table) 02/11/21 Range/Units 16:33 Hgb 10.5 L (11.4-16.0) gm/dL Hct 30.9 L (34.0-46.0) % MCV 78.4 L (80.0-100.0) fL RDW 17.9 H (11.5-15.5) % Neutrophils # 7.8 H (1.3-7.7) k/uL Microbiology - Last 24 Hours (Table) 02/09/21 11:30 Blood Culture Gram Stain - Final Blood Blood Culture - Final Enterobacter cloacae Complex 02/09/21 06:22 Blood Culture Gram Stain - Final Blood Blood Culture - Final Enterobacter cloacae Complex 02/11/21 16:33 Blood Culture - Final Blood 02/10/21 08:10 Blood Culture Gram Stain - Preliminary Blood Blood Culture - Preliminary Gram Neg Bacilli Assessment and Plan Assessment: PO16 C5 and C6 corpectomy with arthrodesis C4-7. POD13 C2-T1 decompression and fusion 2. s/p ORIF femur with revision and infection 3. IVDA 4. Bacteremia 5. Complex medical patient Plan: Pain control, continue with current medication. I did discuss the patient that we need to continue to trend down her pain medications. She will be dealing w ith a little bit more pain, also taking in consideration her history of IV drug abuse. GI and DVT prophylaxis, continue with current medication Wound care planning to remove the stitches from the posterior incision on 02/13/2021., Patient will continue using a rigid collar when up and about, she also has the other c-collar showering Other medical specialty recommendations Discussed with nursing to reach out infectious disease regarding the current bacteremia and PICC line discontinuation. Patient needs continuation of IV antibiotics Discharge planning: Anticipate discharge to rehab after cleared from other medical specialties Time with Patient: Less than 30
[2021-02-12] MEDS: diazePAM 5 MG TAB PO PRN (13:28)
--- NOTE | 2021-02-12 14:46 | CDI ---
Documentation Clarification Form Date: 02/12/2021 02:24:44 PM From: Arabella Raphael CCS, CCDS Admit Date: 01/26/2021 10:18:00 PM Patient Name: Kimberly Hood Visit Number: [id number] Discharge Date: ATTENTION: The Clinical Documentation Specialists (CDI) and [facility] Coding Staff appreciate your assistance in clarifying documentation. Please respond to the clarification below the line at the bottom and electronically sign. The CDI & [facility] Coding staff will review the response and follow-up if needed. Please note: Queries are made part of the Legal Health Record. If you have any questions, please contact the author of this message via ITS. Dr. Williams Sarmiento: Sepsis is documented in the 01/27 Infectious Disease Consult: Sepsis in this patient status post extensive cervical spine surgery and drainage of the abscess. Also documented in the 02/10 Cardiology Consult: Sinus tachycardia, probably related to sepsis and recent surgery. Per the 02/10 Infectious Disease Progress Note: Bacteremia possibly related to PICC line misuse with rash. Developed fever & positive blood culture likely due to misuse of PICC line. Patient was found crushing drugs and inserting into PICC line. Additional clarification regarding documented Sepsis with etiology is requested. History/Risk Factors per the 01/26 Orthopedic Surgeon's H/P: IV Drug Abuse, Back pain, Knee pain, Right femur fracture , developed osteomyelitis. Smoker. Noncompliant with medical management. Clinical Indicators: Presented to the ED on 01/26 via EMS with neck pain, inability to ambulate, numbness and weakness of the left arm, abscess on arm and swelling in her neck. ED Clinical Impression: Discitis of cervical region, Osteomyelitis of C Spine, Pathological fracture cervical vertebra, Spinal cord compression. 01/26 VS: T 97.5, P 67, R 16 - 18, BP 112/66 - 106/65, PO 99 RA - 92 RA, BMI: 29.9 01/26 LAB: WBC 8.4, Neut 5.7, Lymph 23, Lactic Acid 1.1 01/26 Blood Culture x2 (FINAL): Neg @ 144 Hrs. 01/27 Anaerobic Culture (FINAL) x2: Negative. 01/27 Wound Culture (FINAL) x2: Staphylococcus aureus. 02/09 Blood Culture (FINAL) x2: Negative 02/09 Blood Culture (FINAL) x2: Enterobacter cloacae Complex 02/09 Urine Culture (FINAL): Negative 02/10 Blood Culture (FINAL): Negative 02/10 Blood Culture (FINAL): Enterobacter cloacae 02/11 Blood Culture (FINAL): Negative x1, Preliminary x1 Procedure: 01/27: I&D C5-6 and Anterior Spinal Phlegmon. C5-6 Corpectomy, Anterior interbody Arthrodesis C4-C7, Cervical Deformity Correction C4-7. Procedure 01/30: Posterior C2-T11 Posteriolateral instrumented Fusion, C2-C7 Decompressive laminectomy. Treatment 01/26: IV fl Na Cl 500 mls @ 1000 mls/hr q35M, IV Cefepime, IV Vancomycin, IV Dilaudid, IV Solumedrol. 02/09: IV IV Cefazolin, IV Cefepime, IV fl bolus Na Cl 500 mls @ 999 mls/hr q31M 02/11: IV Meropenem In your professional opinion, please clarify if these findings signify one of the following conditions: [ ] Sepsis POA [ ] Please specify cause if known: [ ] Sepsis, Not POA [ ] Please specify cause if known: [ ] Sepsis ruled out [ ] Other, please specify [ ] Unable to determine (Template Last Reviewed: September 2020) MTDD
--- NOTE | 2021-02-12 16:46 | PN ---
PROGRESS NOTE DATE OF SERVICE: 02/12/2021 REASON FOR FOLLOWUP: 1. Paraspinal abscess. 2. Bacteremia and PICC line infection. INTERVAL HISTORY: The patient is afebrile. The patient is breathing comfortably. Denies having any chest pain, shortness of breath or cough. No abdominal pain. No diarrhea. PHYSICAL EXAMINATION: Blood pressure 96/65, pulse 100, temperature 98. She is 98% on room air. General description is a middle-aged female up in the bed in no distress. Respiratory system: Unlabored breathing. Clear to auscultation. Heart: S1, S2. Regular rate and rhythm. Abdomen soft, no tenderness. LABS: Hemoglobin is 10.4, white count 10.6, creatinine 0.36. DIAGNOSTIC IMPRESSION AND PLAN: 1. Patient with paraspinal abscess secondary to MSSA, subsequently did have Enterobacter, multidrug resistant bacteremia. Source likely misuse of the PICC line with persistent bacteremia. PICC line should be discontinued with peripheral IV. Once she clears her bacteremia, another PICC line could be placed. Antibiotic will be adjusted to meropenem, at this time to continue. 2. Patient upper body rash. No worsening. Will advise Calamine lotion for symptomatic relief. 3. Continue supportive care. MMODL / IJN: [id number] /
--- NOTE | 2021-02-12 19:42 | PN ---
PROGRESS NOTE CHIEF COMPLAINT: Status post cervical spine fusion. HISTORY OF PRESENT ILLNESS: This lady is doing fairly well. Does have a little bit of difficulty swallowing. Other than that, she is doing well. She has developed a slightly maculopapular punctate erythematous rash on the upper chest. Her white count is elevating. PHYSICAL EXAMINATION: Chest is clear. The cardiac exam is normal. Abdomen is soft, nontender. Extremities are unchanged. IMPRESSION: 1. Status post C-spine fusion for diskitis and osteomyelitis. 2. New maculopapular rash on the chest. 3. Leukocytosis. PLAN: No change in plan at this time from my perspective. Discharge plan is still pending. MMODL / IJN: [id number] /
[2021-02-12] MEDS: SODIUM CHLORIDE 0.9% 500 ML 500 ML IV SCH (21:40)
[2021-02-13] MEDS: PANTOPRAZOLE 40 MG TABLET PO SCH (04:48)
[2021-02-13] MEDS: GABAPENTIN 300 MG CAP PO SCH ×3 (08:15→20:46)
[2021-02-13] MEDS: METOPROLOL TARTRATE 25 MG TAB PO SCH ×2 (08:15→20:46)
[2021-02-13] MEDS: MEROPENEM 1 GM in SODIUM CHLORIDE 0.9% 100 ML IVPB SCH ×3 (08:16→22:59)
[2021-02-13] MEDS: DULoxetine HCL 60 MG CAPSULE.DR PO SCH (08:16)
[2021-02-13] MEDS: polyethylene glycoL 3350 17 GM POWD.PACK PO SCH (08:16)
[2021-02-13] MEDS: CYCLOBENZAPRINE 10 MG TAB PO SCH ×3 (08:16→20:46)
[2021-02-13] MEDS: HEPARIN SODIUM,PORCINE/PF 5,000 UNIT/0.5 ML SYRINGE SQ SCH ×2 (08:16→20:47)
[2021-02-13] MEDS: valACYclovir HCL 1,000 MG TABLET PO SCH ×3 (08:44→22:59)
[2021-02-13] MEDS: diazePAM 5 MG TAB PO PRN ×2 (08:48→18:22)
--- NOTE | 2021-02-13 12:55 | P.PN ---
Subjective Progress Note Date: 02/13/21 Principal diagnosis: C5-6 osteodiscitis with severe cervical deformity, JIMI B, Patient was consented bedside, she is resting comfortably in her hospital bed. Patient remains on the cardiac stepdown floor, patient now does have a sitter at bedside. Patient notes increasing pain since decreasing her oral medication. She remains on Flexeril 10 mg 3 times a day, gabapentin 300 mg 3 times a day, oxycodone 5 mg every 4 hours. The rash that is present over the anterior chest and neck seems to continue to worsen, and is now noted on her face post sides. Objective - Vital Signs Vital signs: Vital Signs Temp 98.6 F 02/13/21 12:00 Pulse 119 H 02/13/21 12:00 Resp 16 02/13/21 12:00 BP 110/76 02/13/21 12:00 Pulse Ox 100 02/13/21 12:00 Intake & Output 02/12/21 02/13/21 02/13/21 18:59 06:59 18:59 Intake Total 480 940 358 Output Total 1 Balance 479 940 358 Weight 87.4 kg Intake: IV 120 Lactated Ringers 1,000 ml 120 @ 20 mls/hr IV .Q24H CIARAN Rx#:[id number] Intake, IV Titration 100 Amount Meropenem 1 gm In Sodium 100 Chloride 0.9% 100 ml @ 33 .3 mls/hr IVPB Q8HR CIARAN Rx#:[id number] Oral 480 720 358 Output: Urine 1 Other: Voiding Method Toilet Toilet Toilet # Voids 1 ABP, PAP, CO, CI - Last Documented Arterial Blood Pressure 135/68 - Exam Patient is alert and oriented 3 appears well-nourished well-hydrated is in no acute distress. They does not appear septic. On exam the patient has no tenderness to palpation of her thoracic or lumbar spine. There is no edema or ballottement sign. Lower extremities with 4 out of 5 strength in all major muscle groups Upper extremities show 4/5 strength in all major muscle groups. She has some intrinsic weakness still and consolidation accountant strength weakness. There is FROM that is painless of the b/l UE and LE in all major joints. She does have limited ROM of her R knee secondary to her previous surgeies. They are intact to light touch sensation in L2 to S1 nerve distribution. 2/4 DTR all, brisk Patient has palpable dorsalis pedis was posterior tibial pulses. Palpable radial and ulnar pulses bilaterally Compartments are soft and compressible. Patient shows a negative Homans, Villafuerte's improving mildly positive bilaterally No more clonus at this time Babinski is negative and downgoing No tensioning signs. Cranial nerves II through XII are grossly intact. Overall alignment is well-maintained in the sagittal coronal planes. Anterior incision is well healing, the surgical glue is in good position and condition. Sutures were removed on the posterior aspect, the incision is well- healing with good scab formation. - Labs CBC & Chem 7: 02/11/21 16:33 02/10/21 08:10 Labs: Microbiology - Last 24 Hours (Table) 02/11/21 16:33 Blood Culture Gram Stain - Preliminary Blood Blood Culture - Preliminary Gram Neg Bacilli 02/12/21 08:43 Blood Culture Gram Stain - Preliminary Blood Blood Culture - Preliminary Gram Neg Bacilli 02/10/21 08:10 Blood Culture Gram Stain - Final Blood Blood Culture - Final Enterobacter cloacae 02/12/21 08:43 Blood Culture - Final Blood Assessment and Plan Assessment: PO17 C5 and C6 corpectomy with arthrodesis C4-7. POD14 C2-T1 decompression and fusion 2. s/p ORIF femur with revision and infection 3. IVDA 4. Bacteremia 5. Complex medical patient Plan: Pain control, continue with current medication. I did discuss the patient that we need to continue to trend down her pain medications. She will be dealing with a little bit more pain, also taking in consideration her history of IV drug abuse. Plan for discharge on oxycodone 5 mg every 4 hours. GI and DVT prophylaxis, continue with current medication Sutures were removed from the posterior incision today, local wound care. Okay to shower directly over incision. Patient will continue using a rigid collar when up and about, she also has the other c-collar showering Other medical specialty recommendations Patient has been accepted into rehab Center in [place]. Discussed with nursing that the rash has continued to worsen on the anterior neck region, is now spreading to the face. I did order 4 mg of Decadron be given every 6 hours. Possible consult dermatology if symptoms continue to worsen Discharge planning: On an orthopedic standpoint patient is stable for discharge Time with Patient: Less than 30
--- NOTE | 2021-02-13 16:42 | PN ---
PROGRESS NOTE CHIEF COMPLAINT: Status post cervical spine fusion for Staph, diskitis, osteomyelitis and paraspinous abscess. HISTORY OF PRESENT ILLNESS: This lady is fairly stable. White count is down somewhat. She has had numerous positive blood cultures. The follicular rash on the chest and shoulders is about the same. She is complaining about not getting enough analgesia. PHYSICAL EXAMINATION: She is afebrile. Chest is clear. Cardiac exam is normal. The. Abdomen is soft and nontender. She still has the fine follicular rash in the chest and shoulders. IMPRESSION: 1. MSSA. 2. Diskitis. 3. Osteomyelitis and paraspinous abscess in the C-spine. 4. History of IV drug abuse. 5. Fine follicular rash of the chest and shoulders. PLAN: Continue with current management with IV fluids and IV antibiotics while awaiting discharge location for long-term antibiotic care and physical therapy. MMODL / IJN: [id number] /
[2021-02-13] MEDS: DEXAMETHASONE SOD PHOSPHATE 4 MG/ML 1 ML VIAL IV SCH ×2 (17:04→22:59)
[2021-02-13] MEDS: SODIUM CHLORIDE 0.9% 500 ML 500 ML IV SCH (17:06)
[2021-02-13] MEDS ORDERED: MENTHOL-ZINC OXIDE OINT 113 GM TUBE TOPICAL PRN (17:47)
[2021-02-14] MEDS: PANTOPRAZOLE 40 MG TABLET PO SCH (06:21)
[2021-02-14] MEDS: DEXAMETHASONE SOD PHOSPHATE 4 MG/ML 1 ML VIAL IV SCH ×4 (06:21→23:01)
[2021-02-14] MEDS: GABAPENTIN 300 MG CAP PO SCH ×3 (08:41→21:25)
[2021-02-14] MEDS: METOPROLOL TARTRATE 25 MG TAB PO SCH ×2 (08:41→19:55)
[2021-02-14] MEDS: HEPARIN SODIUM,PORCINE/PF 5,000 UNIT/0.5 ML SYRINGE SQ SCH ×2 (08:41→19:56)
[2021-02-14] MEDS: CYCLOBENZAPRINE 10 MG TAB PO SCH ×3 (08:41→21:25)
[2021-02-14] MEDS: DULoxetine HCL 60 MG CAPSULE.DR PO SCH (08:42)
[2021-02-14] MEDS: valACYclovir HCL 1,000 MG TABLET PO SCH ×3 (08:42→23:00)
[2021-02-14] MEDS: polyethylene glycoL 3350 17 GM POWD.PACK PO SCH (08:43)
[2021-02-14] MEDS: MEROPENEM 1 GM in SODIUM CHLORIDE 0.9% 100 ML IVPB SCH ×3 (08:46→23:02)
--- NOTE | 2021-02-14 11:34 | PN ---
PROGRESS NOTE REASON FOR FOLLOW UP: 1. Spinal abscess. 2. Bacteremia secondary to PICC line infection. INTERVAL HISTORY: Patient is currently afebrile, patient is breathing comfortably. The patient denies having any worsening pain to the cervical or thoracic spine area. No chest pain, shortness of breath or cough. No vomiting or diarrhea. PHYSICAL EXAMINATION: Blood pressure 120/81 with a pulse of 122, temperature 98.9. She is 98%. DESCRIPTION: A middle-aged female lying in bed in no distress. RESPIRATORY SYSTEM: Unlabored breathing, decreased breath sounds, no wheeze. HEART: S1, S2. Regular rhythm. ABDOMEN: Soft. No tenderness. LABS: No new labs have been obtained today. Blood cultures keep coming back positive with Gram-negative bacilli. DIAGNOSTIC IMPRESSION AND PLAN: 1. Patient with MSSA perispinal abscess, status post surgical drainage, now with evidence of Gram-negative bacteremia secondary to the PICC line. The PICC line should be discontinued, peripheral IV should be obtained. Tip should be sent for the cultures. Continue with meropenem. 2. Patient with rash in the upper area of the body, not related to the ( ) Will apply calamine lotion, has already showing an improvement. MMODL / IJN: [id number] /
--- NOTE | 2021-02-14 12:24 | PN ---
PROGRESS NOTE DATE OF SERVICE: 02/14/2021 CHIEF COMPLAINT: Status post cervical spine fusion. HISTORY OF PRESENT ILLNESS: This lady remains fairly stable. She is still growing out positive blood cultures. REVIEW OF SYSTEMS: She denies chills, fever, headache, neurologic progression, chest pain, shortness of breath, etc. PHYSICAL EXAMINATION: She is slightly pale. Vital signs are normal. Chest is clear. Cardiac exam is normal. Abdomen is soft, nontender. IMPRESSION: Status post cervical spine fusion for bacterial diskitis, paraspinous abscess and osteomyelitis with MSSA. PLAN: No change in program and await possibility of transfer to extended care facility eventually. MMODL / IJN: [id number] /
--- NOTE | 2021-02-14 16:09 | PN ---
PROGRESS NOTE DATE OF SERVICE: 02/14/2021 REASON FOR FOLLOWUP: A paraspinal abscess and PICC line infection. INTERVAL HISTORY: Patient is afebrile. The patient is breathing comfortably. Denies having any chest pain, shortness of breath or abdominal pain. No noticeable pain to the paraspinal area. PHYSICAL EXAMINATION: Blood pressure 104/67, pulse 107, temp 97.9. She is 98% on room air. GENERAL DESCRIPTION: Is a middle-aged female, lying in bed, in no distress. RESPIRATORY SYSTEM: Unlabored breathing, decreased breath sounds, no wheeze. HEART: S1, S2. Regular. ABDOMEN: Not tender. CHEST: Rash, decreased intensity. LABS: No new labs have been obtained today. Blood culture from yesterday so far negative. DIAGNOSTIC IMPRESSION AND PLAN: Patient with paraspinal abscess status post drainage, subsequent did have Enterobacter bacteremia, possibly due to PICC line. Unfortunately, ( ) place a peripheral IV so we can remove the PICC line and clear this bacteremia, attention to continue. Continue with the meropenem and monitor clinical course closely. Continue supportive care. MMODL / IJN: [id number] /
[2021-02-14] MEDS: SODIUM CHLORIDE 0.9% 500 ML 500 ML IV SCH (19:30)
[2021-02-15] MEDS: DEXAMETHASONE SOD PHOSPHATE 4 MG/ML 1 ML VIAL IV SCH ×4 (05:54→23:25)
[2021-02-15] MEDS: PANTOPRAZOLE 40 MG TABLET PO SCH (05:54)
[2021-02-15] MEDS: MEROPENEM 1 GM in SODIUM CHLORIDE 0.9% 100 ML IVPB SCH ×3 (09:00→23:25)
[2021-02-15] MEDS: valACYclovir HCL 1,000 MG TABLET PO SCH ×3 (09:00→23:26)
[2021-02-15] MEDS: METOPROLOL TARTRATE 25 MG TAB PO SCH ×2 (09:02→20:27)
[2021-02-15] MEDS: HEPARIN SODIUM,PORCINE/PF 5,000 UNIT/0.5 ML SYRINGE SQ SCH ×2 (09:02→20:27)
[2021-02-15] MEDS: polyethylene glycoL 3350 17 GM POWD.PACK PO SCH (09:02)
[2021-02-15] MEDS: GABAPENTIN 300 MG CAP PO SCH ×3 (09:02→20:27)
[2021-02-15] MEDS: DULoxetine HCL 60 MG CAPSULE.DR PO SCH (09:02)
[2021-02-15] MEDS: CYCLOBENZAPRINE 10 MG TAB PO SCH ×3 (09:02→20:27)
--- NOTE | 2021-02-15 09:23 | PN ---
PROGRESS NOTE DATE OF SERVICE: 02/15/2021 CHIEF COMPLAINT: Status post cervical spine fusion for MRSA, diskitis, osteomyelitis and paraspinous abscess. HISTORY OF PRESENT ILLNESS: This lady has been fairly stable. There has been no interval change. She continues to have repeat blood cultures. We are waiting on relocation at a long-term facility in [place]. PHYSICAL EXAMINATION: Physical exam is unchanged. Clear chest and normal cardiac exam. Abdomen is soft. Follicular rash on the chest and shoulders is about the same. IMPRESSION: 1. Status post bacterial cervical spine diskitis, osteomyelitis and paraspinous abscess. 2. IVDA. PLAN: Await transfer to Care Facility in the [place] area. MMODL / IJN: [id number] /
[2021-02-15] MEDS: diazePAM 5 MG TAB PO PRN ×2 (11:34→23:25)
[2021-02-15] MEDS: SODIUM CHLORIDE 0.9% 500 ML 500 ML IV SCH (16:37)
[2021-02-16 05:38] LABS: Anisocytosis Slight; Basophils % (A) 0 %; Eosinophils % (A) 0 %; HCT 31.8 % (34.0-46.0); HGB 9.8 gm/dL (11.4-16.0); Hypochromasia Moderate; Lymphocytes # (A) 1.8 k/uL (1.0-4.8); Lymphocytes % (A) 16 %; MCH 24.9 pg (25.0-35.0); MCHC 30.8 g/dL (31.0-37.0); MCV 80.9 fL (80.0-100.0); Mean Platelet Volume 7.4; Microcytosis Slight; Monocytes # (A) 0.4 k/uL (0-1.0); Monocytes % (A) 3 %; Neutrophils # (A) 9.4 k/uL (1.3-7.7); Neutrophils % (A) 79 %; Platelet Count 295 k/uL (150-450); RBC 3.93 m/uL (3.80-5.40); WBC 11.9 k/uL (3.8-10.6)
[2021-02-16 05:48] LABS: ALT 135 U/L (4-34); AST 35 U/L (14-36); African American GFR (CKD) >90 (>60 ml/min/1.73 sqM); Albumin 3.3 g/dL (3.5-5.0); Alkaline Phosphatase 170 U/L (38-126); Anion Gap 7 mmol/L; Blood Urea Nitrogen 19 mg/dL (7-17); C Reactive Protein 1.1 mg/dL (<1.0); Carbon Dioxide 26 mmol/L (22-30); Chloride 106 mmol/L (98-107); Glucose 119 mg/dL (74-99); Non-African American GFR(CKD) >90 (>60 ml/min/1.73 sqM); Sodium 139 mmol/L (137-145); Total Bilirubin 0.4 mg/dL (0.2-1.3); Total Protein 6.4 g/dL (6.3-8.2)
[2021-02-16] MEDS: PANTOPRAZOLE 40 MG TABLET PO SCH (06:21)
[2021-02-16] MEDS: DEXAMETHASONE SOD PHOSPHATE 4 MG/ML 1 ML VIAL IV SCH ×4 (06:21→23:28)
[2021-02-16 06:32] LABS: Erythrocyte Sedimentation Rate 24 mm/hr (0-20)
--- NOTE | 2021-02-16 06:45 | PN ---
PROGRESS NOTE DATE OF SERVICE: 02/15/2021 REASON FOR FOLLOW UP: 1. Paraspinal abscess. 2. PICC line infection. INTERVAL HISTORY: Patient is afebrile. The patient is breathing comfortably. Denies having any chest pain, shortness of breath or cough. No abdominal pain. No worsening pain to the Thoracic and cervical incision area. PHYSICAL EXAMINATION: Blood pressure 106/72 with a pulse of 150, temperature 98.1, she is 98% on room air. General description is a middle-aged female lying in bed in no distress. Respiratory system: Unlabored breathing clear to auscultation anteriorly. Heart S1, S2. Regular rate and rhythm. Abdomen is soft, no tenderness. LABS: No new labs have been obtained today. DIAGNOSTIC IMPRESSION AND PLAN: Patient with paraspinal abscess status post drainage. Culture positive for MSSA. Subsequently did have a bacteremia secondary to the PICC line abuse. Unfortunately peripheral IV could not be placed. Attempt to get a Medline tomorrow and afterwards PICC line should be discontinued. For treatment of bacteremia continue with meropenem. Prognosis remains to be guarded. Blood culture should be repeated. MMODL / IJN: [id number] /
[2021-02-16] MEDS: MEROPENEM 1 GM in SODIUM CHLORIDE 0.9% 100 ML IVPB SCH ×3 (08:01→23:28)
[2021-02-16] MEDS: METOPROLOL TARTRATE 25 MG TAB PO SCH ×2 (08:01→20:24)
[2021-02-16] MEDS: GABAPENTIN 300 MG CAP PO SCH ×3 (08:01→20:25)
[2021-02-16] MEDS: CYCLOBENZAPRINE 10 MG TAB PO SCH ×3 (08:02→20:25)
[2021-02-16] MEDS: valACYclovir HCL 1,000 MG TABLET PO SCH ×3 (08:02→23:29)
[2021-02-16] MEDS: DULoxetine HCL 60 MG CAPSULE.DR PO SCH (08:02)
[2021-02-16] MEDS: HEPARIN SODIUM,PORCINE/PF 5,000 UNIT/0.5 ML SYRINGE SQ SCH ×2 (08:02→20:24)
[2021-02-16] MEDS: polyethylene glycoL 3350 17 GM POWD.PACK PO SCH (08:07)
[2021-02-16 11:52] VITALS: BMI 31.7
[2021-02-16] MEDS: SODIUM CHLORIDE 0.9% 500 ML 500 ML IV SCH (18:32)
--- NOTE | 2021-02-16 19:20 | PN ---
PROGRESS NOTE DATE OF SERVICE: 02/16/2021. CHIEF COMPLAINT: Osteomyelitis and diskitis with paraspinal abscess in the cervical area. HISTORY OF PRESENT ILLNESS: This lady is stable and I have been told that a bed is available for her at [facility]. PHYSICAL EXAMINATION: Chest is clear. Cardiac exam is normal. Abdomen is soft, nontender. IMPRESSION: 1. Status post C-spine fusion for bacterial diskitis, osteomyelitis and paraspinous abscess. 2. History of drug addiction. 3. Osteomyelitis in the right femur following pathologic fracture. PLAN: Set up discharge. She can be transferred today. MMODL / IJN: [id number] /
[2021-02-16 20:33] VITALS: TEMP 97.7
--- NOTE | 2021-02-16 22:57 | PN ---
PROGRESS NOTE DATE OF SERVICE: 02/16/2021 REASON FOR FOLLOW UP: Paraspinal abscess and PICC line infection. INTERVAL HISTORY: Patient is afebrile. The patient is breathing comfortably. PICC line was discontinued today and midline has been placed. Cultures have been sent for the culture. No chest pain, shortness of breath or cough. No abdominal pain, no diarrhea. PHYSICAL EXAMINATION: Blood pressure 94/61, pulse of 90, temperature of 97.7. She is 98% on room air. General description is a middle-aged female lying in no distress. Respiratory system: Unlabored breathing, clear to auscultation anteriorly. Heart S1, S2, regular rate and rhythm. Abdominal is soft, no tenderness. LABS: Hemoglobin is 9.8, white count 11.9. Sedimentation rate is 24. CRP is 1.1. Blood cultures from 02/13 has been negative so far. DIAGNOSTIC IMPRESSION AND PLAN: Patient with paraspinal abscess. Culture positive for MSSA. The patient subsequently did have a multi-drug resistant Enterobacter bacteremia, possibly related to the so the PICC line has been discontinued. continue followup. Plan is for meropenem for at least 6 weeks and close outpatient followup. MMODL / IJN: [id number] /
[2021-02-17 00:19] VITALS: RESP 18
[2021-02-17] MEDS: DEXAMETHASONE SOD PHOSPHATE 4 MG/ML 1 ML VIAL IV SCH ×2 (06:11→14:39)
[2021-02-17] MEDS: PANTOPRAZOLE 40 MG TABLET PO SCH (06:11)
[2021-02-17] MEDS: MEROPENEM 1 GM in SODIUM CHLORIDE 0.9% 100 ML IVPB SCH (09:26)
[2021-02-17] MEDS: valACYclovir HCL 1,000 MG TABLET PO SCH (09:27)
[2021-02-17] MEDS: GABAPENTIN 300 MG CAP PO SCH (09:27)
[2021-02-17] MEDS: HEPARIN SODIUM,PORCINE/PF 5,000 UNIT/0.5 ML SYRINGE SQ SCH (09:28)
[2021-02-17] MEDS: METOPROLOL TARTRATE 25 MG TAB PO SCH (09:28)
[2021-02-17] MEDS: polyethylene glycoL 3350 17 GM POWD.PACK PO SCH (09:28)
[2021-02-17] MEDS: CYCLOBENZAPRINE 10 MG TAB PO SCH (09:28)
[2021-02-17] MEDS: DULoxetine HCL 60 MG CAPSULE.DR PO SCH (09:28)
--- NOTE | 2021-02-17 13:09 | PN ---
PROGRESS NOTE DATE OF SERVICE: 02/17/2021 REASON FOR FOLLOW UP: Paraspinal abscess and PICC line infection. INTERVAL HISTORY: The patient is afebrile. The patient is breathing comfortably. Patient denies having any chest pain, shortness of breath or cough. Pain to the spine area is currently decreased. No abdominal pain. No diarrhea. PHYSICAL EXAMINATION: Blood pressure 111/71, pulse 95. Temperature 97.7. She is 99% on room air. General description: The patient is a middle-aged female lying in bed in no distress. Respiratory system: Unlabored breathing. Clear to auscultation anteriorly. Heart S1, S2. Regular rate and rhythm. Abdomen soft, no tenderness. LABS: No new labs have been obtained today. Follow-up blood culture has been negative. DIAGNOSTIC IMPRESSION AND PLAN: Patient with paraspinal abscess. Cultures were positive for MSSA. Subsequently the patient did have Enterobacter bacteremia likely secondary to the PICC line which has been discontinued. Patient cleared her bacteremia. Plan on 5 more weeks of IV meropenem and close outpatient followup with weekly monitoring of CBC, BMP and sedimentation rate. Questions and concerns were answered. MMODL / IJN: [id number] /
[2021-02-17 14:45] VITALS: BP 103/64; PULSE 104
--- NOTE | 2021-02-17 14:53 | DS ---
DISCHARGE SUMMARY CHIEF COMPLAINT: Pain and stiffness in the neck. HISTORY OF PRESENT ILLNESS AND PHYSICAL EXAMINATION: Details of this lady's history and physical can be found in the initial workup. LABORATORY STUDIES: While she was in the hospital, she had laboratory studies, details of which can be found in the laboratory section of her chart. COURSE IN THE HOSPITAL: After admission, she was placed on bedrest and she was seen and followed by Orthopedic Surgery and Infectious Disease. She was taken to the operating room where she underwent a fusion from C4-C7 and relief of bacterial diskitis and paraspinous abscess as well as possible osteomyelitis. Postoperatively, she was in ICU and her neurologic deficits in the upper and lower extremities gradually improved and had returned to almost complete normalcy by the time of discharge. She recently received IV antibiotics and for extended period time, she grew out positive blood cultures. It was thought that this may have been due to central line which was then removed and replaced. Cultures then started to come back negatively. Arrangements were being made for her to be sent to a rehab center in the [place] area for for physical therapy and long-term IV antibiotic treatment. She did have a run into a problem in the hospital where she was caught crushing her narcotic analgesic pills and inserting them into her IV. At that point, a sitter was placed at the bedside around the clock. She will be transferred to this facility on the . FINAL DIAGNOSES: 1. Cervical spine bacterial diskitis, paraspinous abscess and osteomyelitis with spastic quadriplegia. 2. History of IV drug addiction. 3. History of pathologic fracture of the right femur with probable persistent osteomyelitis. OPERATIONS: Cervical spine fusion. CONSULTATIONS: Infectious disease, orthopedic surgery, intensive medicine. She is improved. MMODL / IJN: [id number] /
--- NOTE | 2021-02-17 19:09 | MISC ---
MISCELLANOUS REPORT Sepsis present on admission, cervical spine diskitis and paraspinous abscess. MMODL / IJN: [id number] /
== END 2021-02-17 16:35 | DRG 853 ==
LOC: EC 15:32 → 2SICU 22:18 → 5NMEDONC 02-01 16:30 → 3SCARD 02-08 18:46
PROVIDERS: ADMIT Family Medicine; ATTEND Family Medicine
PROC: 06HN33Z Insertion of Infusion Device into Left Femoral Vein, Percutaneous Approach (ICD-10-PCS; 2021-01-26)
PROC: 0RB30ZZ Excision of Cervical Vertebral Disc, Open Approach (ICD-10-PCS; principal; 2021-01-27 06:00)
PROC: 0RG20A0 Fusion of 2 or more Cervical Vertebral Joints with Interbody Fusion Device, Anterior Approach, Anterior Column, Open Approach (ICD-10-PCS; principal; 2021-01-27 06:00)
PROC: 00NW0ZZ Release Cervical Spinal Cord, Open Approach (ICD-10-PCS; principal; 2021-01-27 06:00)
PROC: 4A11X4G Monitoring of Peripheral Nervous Electrical Activity, Intraoperative, External Approach (ICD-10-PCS; principal; 2021-01-27 06:00)
PROC: 0RG20K0 Fusion of 2 or more Cervical Vertebral Joints with Nonautologous Tissue Substitute, Anterior Approach, Anterior Column, Open Approach (ICD-10-PCS; principal; 2021-01-27 06:00)
PROC: 0RG40K1 Fusion of Cervicothoracic Vertebral Joint with Nonautologous Tissue Substitute, Posterior Approach, Posterior Column, Open Approach (ICD-10-PCS; 2021-01-30)
PROC: 0RG20K1 Fusion of 2 or more Cervical Vertebral Joints with Nonautologous Tissue Substitute, Posterior Approach, Posterior Column, Open Approach (ICD-10-PCS; 2021-01-30)
PROC: 02HV33Z Insertion of Infusion Device into Superior Vena Cava, Percutaneous Approach (ICD-10-PCS; 2021-02-03)
PROC: 05HB33Z Insertion of Infusion Device into Right Basilic Vein, Percutaneous Approach (ICD-10-PCS; 2021-02-16)
DX: A41.4 Sepsis due to anaerobes (principal); G06.1 Intraspinal abscess and granuloma; T80.211A Bloodstream infection due to central venous catheter, initial encounter; G82.50 Quadriplegia, unspecified; G95.89 Other specified diseases of spinal cord; F05 Delirium due to known physiological condition; G95.29 Other cord compression; M84.68XA Pathological fracture in other disease, other site, initial encounter for fracture; I47.1 Supraventricular tachycardia; M46.22 Osteomyelitis of vertebra, cervical region; M46.32 Infection of intervertebral disc (pyogenic), cervical region; F15.20 Other stimulant dependence, uncomplicated; L02.414 Cutaneous abscess of left upper limb; F11.20 Opioid dependence, uncomplicated; Z16.24 Resistance to multiple antibiotics; Z20.822 Contact with and (suspected) exposure to COVID-19; Z91.19 Patient's noncompliance with other medical treatment and regimen; M48.02 Spinal stenosis, cervical region; M40.202 Unspecified kyphosis, cervical region; D50.9 Iron deficiency anemia, unspecified; B95.61 Methicillin susceptible Staphylococcus aureus infection as the cause of diseases classified elsewhere; R13.10 Dysphagia, unspecified; I07.1 Rheumatic tricuspid insufficiency; R45.1 Restlessness and agitation; R26.2 Difficulty in walking, not elsewhere classified; B00.9 Herpesviral infection, unspecified; T38.0X5A Adverse effect of glucocorticoids and synthetic analogues, initial encounter; R25.8 Other abnormal involuntary movements; E66.3 Overweight; Z68.31 Body mass index [BMI] 31.0-31.9, adult; F17.200 Nicotine dependence, unspecified, uncomplicated; Z71.6 Tobacco abuse counseling; Z87.311 Personal history of (healed) other pathological fracture; Z59.0 Homelessness; Z56.0 Unemployment, unspecified; Z90.49 Acquired absence of other specified parts of digestive tract; Z87.19 Personal history of other diseases of the digestive system; Z90.89 Acquired absence of other organs; Z98.51 Tubal ligation status; Z91.81 History of falling; Z98.890 Other specified postprocedural states; Z71.3 Dietary counseling and surveillance; Y33.XXXA Other specified events, undetermined intent, initial encounter; Y92.230 Patient room in hospital as the place of occurrence of the external cause; Y84.8 Other medical procedures as the cause of abnormal reaction of the patient, or of later complication, without mention of misadventure at the time of the procedure; Z83.79 Family history of other diseases of the digestive system
CPT/HCPCS: 36410; 36415; 36573; 70450; 71045; 71275; 72040; 72125; 72128; 72156; 72157; 72158; 74230; 76937; 80048; 80053; 80074; 80202; 80306; 80307; 80377; 81001; 82565; 82747; 82805; 83540; 83550; 83605; 83735; 84100; 84443; 84703; 85025; 85027; 85610; 85652; 85730; 86140; 86694; 86695; 86696; 87040; 87070; 87075; 87077; 87086; 87186; 87205; 87491; 87591; 87635; 87661; 88307; 88311; 93005; 93306; C1762

== ENCOUNTER → 2021-06-29 | Outpatient (CLI) | payer OTHER ==
--- NOTE | 2021-06-29 18:23 | MR ---
MRI CERVICAL and thoracic SPINE without contrast: CLINICAL HISTORY: Neck pain TECHNIQUE: Multiplanar, multisequence imaging of the cervical spine and thoracic is performed without intravenous contrast, unable to obtain intravenous access prior to the procedure COMPARISON: MR and CT cervical and thoracic spine dated 01/26/2021, plain film cervical spine 06/01/[address] chest 02/08/2021 FINDINGS: There is been interval anterior cervical fusion and discectomy C4-C7, intervertebral spacer is present at C4-5, C6-7, posterior cervical fusion changes at C2-T1. There is anatomic alignment. N o significant spinal stenosis. There is susceptibility artifact due to patient's hardware. No evident disc herniation or significant foraminal encroachment. There are cord signal changes seen, slight po sterior expansion or thickening of the cord at C5-C6, some vague low signal change noted on T1-weight ed images, increased signal on T2-weighted images along the posterior cord. Thoracic cord: First thoracic vertebral bodies show some increased signal on T2, intermediate signal on T1, difficult to exclude some marrow edema. Thoracic vertebral bodies show preserved height and al ignment, no evident spinal stenosis or foraminal encroachment, no significant disc herniation. Thorac ic cord signal is maintained. T9-10 shows spondylosis with some loss of disc height, minimal posterio r disc bulge causing slight anterior mass effect on the thecal sac. On axial image #9 within the right lower lobe there is a nodular soft tissue density present. IMPRESSION: Postop changes. The vague signal changes present at C5-6 are felt likely to be posttraum atic. Findings at T1 as described, difficult to exclude some marrow edema. Noncontrast exam as descri bed. Consider CT scan as indicated, consider septic emboli, ID consult.
== END | disposition home or self-care (01) ==
LOC: RADMRIMAIN 15:12
PROVIDERS: ATTEND Orthopaedic Surgery
DX: M47.814 Spondylosis without myelopathy or radiculopathy, thoracic region (principal); M54.2 Cervicalgia; Z98.890 Other specified postprocedural states
CPT/HCPCS: 72141; 72146

== ENCOUNTER → 2023-11-21 | Outpatient (CLI) | payer OTHER ==
--- NOTE | 2023-11-23 22:29 | CT ---
EXAMINATION TYPE: CT knee RT wo con DATE OF EXAM: 11/21/2023 COMPARISON: CT 07/05/2020 HISTORY: 38-year-old female M25.561, M17.31, posttraumatic osteoarthritis TECHNIQUE: Contiguous axial scanning of the right knee without IV contrast. Coronal and sagittal jacqueline nstructions performed. CT DLP: 124 mGycm Automated exposure control for dose reduction was used. FINDINGS: There is old healed fracture deformity of the distal femoral shaft. The previous oblique fracture has healed with 1 cm of lateral and posterior displacement. There is a large intramedullary defect extending through the length of the visualized femur and corre sponding to the previous retrograde intramedullary nail. Tracts relating to the previous 2 distal int erlocking screws are also demonstrated. A couple areas of cortical nonbridging are present at the site of the old fracture deformity posterio rly measuring up to 1.6 cm wide and 2.7 cm craniocaudal. No discrete lytic destruction or aggressive periostitis is seen. Given the degree of subchondral bony irregularity and cystic change within both medial and lateral co mpartments, suspect moderate to severe underlying osteoarthritic change. Moderate underlying degenera tive change in the patellofemoral compartment. There is a small knee joint effusion. Extensor mechanism is intact. IMPRESSION: 1. POSTTRAUMATIC TRICOMPARTMENTAL OSTEOARTHROSIS, SUSPECTED TO BE MODERATE TO SEVERE IN BOTH MEDIAL A ND LATERAL COMPARTMENTS AND MODERATE IN THE PATELLOFEMORAL COMPARTMENT. 2. CHRONIC HEALED FRACTURE DEFORMITY DISTAL FEMORAL SHAFT. THIS WAS AN OBLIQUE FRACTURE HEALED WITH 1 CM OF LATERAL AND POSTERIOR DISPLACEMENT. 3. LARGE INTRAMEDULLARY DEFECT ALONG THE LENGTH OF THE VISUALIZED FEMUR CORRESPONDS TO THE SITE OF DC EVIOUS RETROGRADE INTRAMEDULLARY NAIL. 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
== END | disposition home or self-care (01) ==
LOC: RADCTMAIN 13:29
PROVIDERS: ATTEND Orthopaedic Surgery Sports Medicine
DX: M17.31 Unilateral post-traumatic osteoarthritis, right knee (principal); M89.8X5 Other specified disorders of bone, thigh

== ENCOUNTER → 2023-11-28 | Outpatient (CLI) | payer OTHER | END | disposition home or self-care (01) | LOC: LABWHC1 15:03 | PROVIDERS: ATTEND Orthopaedic Surgery | DX: M79.651 Pain in right thigh (principal); M17.31 Unilateral post-traumatic osteoarthritis, right knee; M84.453A Pathological fracture, unspecified femur, initial encounter for fracture; Z87.39 Personal history of other diseases of the musculoskeletal system and connective tissue | CPT/HCPCS: 36415; 85652; 86140; 87070; 87075; 87205 ==